=== PATIENT | male | born 1935 | race Caucasian/White ===

== ENCOUNTER 2017-01-30 19:52 | Inpatient (IN) | payer OTHER, BC ==
[~2017-01-30] VITALS: Ht 180.3 cm; Wt 71.4 kg
[~2017-01-30 19:52] MED LIST: AMLO-114 PO; ASPEC325 PO; CLOP1TAB15 PO; GLC/500 PO; GLYB3TAB3 PO; LISI-461 PO; LPT10 PO
[2017-01-30 21:02] LABS: BASO % 0.4 %; BASO ABS # 0.03 K/uL (0-0.2); COMPLETE YES; EOS % 8.8 %; IG% 0.1 %; LYMPH % 31.8 %; LYMPH ABS # 2.17 K/uL (1.2-3.4); MEAN CORPUSCULAR HEMOGLOBIN 31.9 pg (25-34); MEAN CORPUSCULAR HGB CONC 33.2 g/dl (32-36); MEAN PLATELET VOLUME 10.1 fL (7.4-10.4); MONO % 18.3 %; NEUT % 40.6 %; PLATELET COUNT 247 K/uL (130-400); RED BLOOD COUNT 3.23 M/uL (4.7-6.1); WHITE BLOOD COUNT 6.82 K/uL (4.8-10.8)
--- NOTE | 2017-01-30 21:08 | DIAGNOSTIC IMAGING REPORT ---
CT SCAN OF THE BRAIN WITHOUT IV CONTRAST CLINICAL HISTORY: Weakness. Change in mental status. COMPARISON STUDY: CT and MRI of the brain dated 12/17/2013. TECHNIQUE: Unenhanced axial CT scan of the brain is performed from the vertex to the skull base. CT DOSE: 614.27 mGy.cm FINDINGS: Brain parenchyma: There are age-related involutional changes noting advanced confluent subcortical and periventricular microangiopathic change. There is a septal malacia from a remote right parietal-occipital infarct. Small chronic lacunar infarcts are seen in the caudate heads, the left thalamus, and the left basal ganglia. There is no hemorrhage, mass effect, or evidence of acute territorial ischemia by CT criteria. Gibbons-white matter is preserved. No extra-axial fluid collection is seen. Ventricles, sulci, cisterns: Prominent secondary to involutional change. Intracranial vasculature: There is atherosclerotic calcification of the cavernous carotid and vertebral arteries. Calvarium: Unremarkable. Sinuses and mastoids: Trace mucosal thickening is seen in the left maxillary antrum and the ethmoid sinuses. The remaining visualized paranasal sinuses are clear. The mastoid air cells are well pneumatized. Orbits: The bony orbits are grossly intact. There is a left-sided ocular lens implant. IMPRESSION: Senescent changes and remote infarcts as above. There is no hemorrhage, mass effect, or evidence of acute territorial ischemia by CT criteria. Electronically signed by: Rommel Posada M.D. 01/30/2017 9:07 PM Dictated Date/Time: 01/30/2017 9:03 PM
--- NOTE | 2017-01-30 21:25 | DIAGNOSTIC IMAGING REPORT ---
SINGLE VIEW CHEST CLINICAL HISTORY: Change in mental status. Generalized weakness. FINDINGS: An AP, portable, upright chest radiograph is obtained. No prior studies are available for comparison at the time of dictation. The examination is degraded by portable technique and patient rotation. A right internal jugular central venous catheter is in place. The tip of the catheter projects over the SVC. The heart is enlarged and there is atherosclerotic calcification of the thoracic aorta. The pulmonary vasculature is noncongested. The lungs and pleural spaces are clear. No pneumothorax is seen. The skeletal structures are osteopenic. The bony thorax is grossly intact. IMPRESSION: Cardiomegaly with no acute cardiopulmonary abnormality. Electronically signed by: Rommel Posada M.D. 01/30/2017 9:23 PM Dictated Date/Time: 01/30/2017 9:22 PM
[2017-01-30] MEDS ORDERED: SITA25TA PO (21:38)
[2017-01-30] MEDS ORDERED: CARV6.252 PO (21:39)
[2017-01-30] MEDS ORDERED: ATOR10TA88 PO (21:41)
[2017-01-30] MEDS ORDERED: B-COTAB97 PO (21:43)
[2017-01-30] MEDS ORDERED: ASPI325T39 PO (21:44)
[2017-01-30 21:48] LABS: PARTIAL THROMBOPLASTIN RATIO 0.9
[2017-01-30 21:50] LABS: ALT/SGPT 17 U/L (12-78); BLOOD UREA NITROGEN 15 mg/dl (7-18); BUN/CREATININE RATIO 5.2 (10-20); CALCIUM 8.8 mg/dl (8.5-10.1); CARBON DIOXIDE 31 mmol/L (21-32); CHLORIDE 99 mmol/L (98-107); GLUCOSE 164 mg/dl (70-99); MAGNESIUM 2.2 mg/dl (1.8-2.4); POTASSIUM 4.1 mmol/L (3.5-5.1); SODIUM 138 mmol/L (136-145)
[2017-01-30 21:58] LABS: ALKALINE PHOSPHATASE 65 U/L (45-117); AST/SGOT 13 U/L (15-37); CKMB/CK RATIO 2.3 (0-3.0)
--- NOTE | 2017-01-30 22:28 | EMERGENCY ROOM VISIT NOTE ---
History Report prepared by Mayte: Maldonado Rivera Under the Supervision of: Dr. Jai Valdes D.O. First contact with patient: 20:08 Chief Complaint: ALTERED MENTAL STATUS Stated Complaint: AMS History of Present Illness The patient is a 81 year old male who presents to the Emergency Room by EMS with complaints of an episode of altered mental status beginning this evening. Per the patient and his family, he had dialysis today, and came home and sat down afterwards. He has been on dialysis for 2 months. Later, he was complaining of being tired, and had difficulty answering questions. The family notes these symptoms lasted about 30 minutes. The patient notes he currently feels fine. The patient had a stroke about 3.5 years ago, and has had problems with his right arm and the right side of his face since. He has not had recently cold symptoms, and he did received a flu shot this year. EMS reported that his blood pressure was 60/30, and his family notes his blood pressured dropped after his last dialysis. Source of History: patient, family Onset: this evening Position: head Symptom Intensity: episode lasting 30 minutes Quality: other (altered mental status) Timing: other (episode) Associated Symptoms: + fatigue Note: The patient has not had cold symptoms Review of Systems See HPI for pertinent positives & negatives. A total of 10 systems reviewed and were otherwise negative. Past Medical & Surgical Medical Problems: (1) CVA (cerebral vascular accident) (2) Diabetes mellitus (3) HTN (hypertension) Family History Diabetes mellitus Hypertension Social History Smoking Status: Unknown if Ever Smoked Alcohol Use: none Marital Status: Housing Status: lives with significant other Occupation Status: retired Current/Historical Medications Scheduled Amlodipine (Norvasc), 10 MG PO DAILY Aspirin (Aspirin Ec), 325 MG PO DAILY Atorvastatin (Lipitor), 10 MG PO DAILY B-Complex W/ C & Folic Acid (Marilee-Vince), 1 TAB PO DAILY Carvedilol (Coreg), 6.25 MG PO BID Clopidogrel (Plavix), 75 MG PO DAILY Sitagliptin (Januvia), 25 MG PO DAILY Allergies Coded Allergies: Penicillins (Verified Allergy, Unknown, rash, 01/30/17) Physical Exam Vital Signs Date Time Temp Pulse Resp B/P Pulse Ox O2 Delivery O2 Flow Rate FiO2 01/30/17 21:49 75 18 145/67 100 Room Air 80 129/72 82 127/64 01/30/17 21:21 72 18 138/74 97 Room Air 01/30/17 20:40 72 01/30/17 20:07 36.8 80 18 152/79 100 Room Air Physical Exam CONSTITUTIONAL/VITAL SIGNS: Reviewed / noted above. GENERAL: Non-toxic in appearance. INTEGUMENTARY: Warm, dry, and [place]. HEAD: Normocephalic. EYES: without scleral icterus or trauma. ENT/OROPHARYNX: clear and moist. LYMPHADENOPATHY/NECK: Is supple without lymphadenopathy or meningismus. RESPIRATORY: Lungs clear and equal. CARDIOVASCULAR: Regular rate and rhythm. GI/ABDOMEN: Soft and nontender. No organomegaly or pulsatile mass. No rebound or guarding. Normal bowel sounds. EXTREMITIES: Warm and well perfused. BACK: No CVA tenderness. NEUROLOGICAL: Chronic right-sided paresis and mild slurring of speech from prior stroke. PSYCHIATRIC: normal affect. MUSCULOSKELETAL: Normally developed with good muscle tone. Medical Decision & Procedures ER Provider Diagnostic Interpretation: Radiology results as stated below per my review and radiologist interpretation: CT SCAN OF THE BRAIN WITHOUT IV CONTRAST FINDINGS: Brain parenchyma: There are age-related involutional changes noting advanced confluent subcortical and periventricular microangiopathic change. There is a septal malacia from a remote right parietal-occipital infarct. Small chronic lacunar infarcts are seen in the caudate heads, the left thalamus, and the left basal ganglia. There is no hemorrhage, mass effect, or evidence of acute territorial ischemia by CT criteria. Gibbons-white matter is preserved. No extra-axial fluid collection is seen. Ventricles, sulci, cisterns: Prominent secondary to involutional change. Intracranial vasculature: There is atherosclerotic calcification of the cavernous carotid and vertebral arteries. Calvarium: Unremarkable. Sinuses and mastoids: Trace mucosal thickening is seen in the left maxillary antrum and the ethmoid sinuses. The remaining visualized paranasal sinuses are clear. The mastoid air cells are well pneumatized. Orbits: The bony orbits are grossly intact. There is a left-sided ocular lens implant. IMPRESSION: Senescent changes and remote infarcts as above. There is no hemorrhage, mass effect, or evidence of acute territorial ischemia by CT criteria. Electronically signed by: Rommel Posada M.D. 01/30/2017 9:07 PM Dictated Date/Time: 01/30/2017 9:03 PM SINGLE VIEW CHEST FINDINGS: An AP, portable, upright chest radiograph is obtained. No prior studies are available for comparison at the time of dictation. The examination is degraded by portable technique and patient rotation. A right internal jugular central venous catheter is in place. The tip of the catheter projects over the SVC. The heart is enlarged and there is atherosclerotic calcification of the thoracic aorta. The pulmonary vasculature is noncongested. The lungs and pleural spaces are clear. No pneumothorax is seen. The skeletal structures are osteopenic. The bony thorax is grossly intact. IMPRESSION: Cardiomegaly with no acute cardiopulmonary abnormality. Electronically signed by: Rommel Posada M.D. 01/30/2017 9:23 PM Dictated Date/Time: 01/30/2017 9:22 PM Laboratory Results 01/30/17 20:08 Red Blood Count 3.23, Mean Corpuscular Volume 96.0, Mean Corpuscular Hemoglobin 31.9, Mean Corpuscular Hemoglobin Concent 33.2, Mean Platelet Volume 10.1, Neutrophils (%) (Auto) 40.6, Lymphocytes (%) (Auto) 31.8, Monocytes (%) (Auto) 18.3, Eosinophils (%) (Auto) 8.8, Basophils (%) (Auto) 0.4, Neutrophils # (Auto ) 2.76, Lymphocytes # (Auto) 2.17, Monocytes # (Auto) 1.25, Eosinophils # (Auto ) 0.60, Basophils # (Auto) 0.03 01/30/17 21:22 Test 01/30/17 20:08 01/30/17 21:22 White Blood Count 6.82 K/uL (4.8-10.8) Red Blood Count 3.23 M/uL (4.7-6.1) Hemoglobin 10.3 g/dL (14.0-18.0) Hematocrit 31.0 % (42-52) Mean Corpuscular Volume 96.0 fL (80-100) Mean Corpuscular Hemoglobin 31.9 pg (25-34) Mean Corpuscular Hemoglobin Concent 33.2 g/dl (32-36) Platelet Count 247 K/uL (130-400) Mean Platelet Volume 10.1 fL (7.4-10.4) Neutrophils (%) (Auto) 40.6 % Lymphocytes (%) (Auto) 31.8 % Monocytes (%) (Auto) 18.3 % Eosinophils (%) (Auto) 8.8 % Basophils (%) (Auto) 0.4 % Neutrophils # (Auto) 2.76 K/uL (1.4-6.5) Lymphocytes # (Auto) 2.17 K/uL (1.2-3.4) Monocytes # (Auto) 1.25 K/uL (0.11-0.59) Eosinophils # (Auto) 0.60 K/uL (0-0.5) Basophils # (Auto) 0.03 K/uL (0-0.2) RDW Standard Deviation 45.4 fL (36.4-46.3) RDW Coefficient of Variation 13.3 % (11.5-14.5) Immature Granulocyte % (Auto) 0.1 % Immature Granulocyte # (Auto) 0.01 K/uL (0.00-0.02) Prothrombin Time 11.0 SECONDS (9.0-12.0) Prothromb Time International Ratio 1.0 (0.9-1.1) Activated Partial Thromboplast Time 24.2 SECONDS (21.0-31.0) Partial Thromboplastin Ratio 0.9 Anion Gap 8.0 mmol/L (3-11) Est Creatinine Clear Calc Drug Dose 20.5 ml/min Estimated GFR () 22.3 Estimated GFR (Non- 19.3 BUN/Creatinine Ratio 5.2 (10-20) Calcium Level 8.8 mg/dl (8.5-10.1) Magnesium Level 2.2 mg/dl (1.8-2.4) Total Bilirubin 0.6 mg/dl (0.2-1) Direct Bilirubin 0.1 mg/dl (0-0.2) Aspartate Amino Transf (AST/SGOT) 13 U/L (15-37) Alanine Aminotransferase (ALT/SGPT) 17 U/L (12-78) Alkaline Phosphatase 65 U/L (45-117) Total Creatine Kinase 86 U/L (39-308) Creatine Kinase MB 2.0 ng/ml (0.5-3.6) Creatine Kinase MB Ratio 2.3 (0-3.0) Troponin I < 0.015 ng/ml (0-0.045) Total Protein 6.8 gm/dl (6.4-8.2) Albumin 3.6 gm/dl (3.4-5.0) Lipase 101 U/L (73-393) Thyroid Stimulating Hormone (TSH) 2.600 uIu/ml (0.300-4.500) Laboratory results as stated above per my review. ECG Indication: altered mental status Rate (beats per minute): 69 Rhythm: normal sinus Findings: RBBB, T-wave inversion (Lateral), other (baseline artifact) Comparison ECG Date: December 17, 2013 Change: T wave inversions appear new. ED Course 2009: Previous medical records were reviewed. The patient was evaluated in room B11B. A complete history and physical examination was performed. 2220: Discussed the patient's case with Dr. Henry. The patient will be evaluated for further treatment and disposition. Medical Decision Differential includes acute cardiac dysrhythmia, microinfarction, CVA, TIA, dehydration, anemia, electrolyte disturbance, seizure, trauma, intracranial bleeding, acute vascular catastrophe, thoracic aortic dissection, PE, abdominal aortic aneurysm rupture. This is a 81-year-old male who presents to the ED with a chief complaint of a syncopal episode at home. The patient has been getting dialysis for about 2 months. Today he had dialysis in the morning. He ate lunch. He was doing fine all day. Around 6:30 PM the patient did not have an appetite to eat. He was feeling tired. He then became unresponsive and was found to be pale and diaphoretic by EMS. He had a blood pressure 60/40. He was unresponsive for about 30 minutes according to the family. The patient had a prehospital blood sugar of 275. He was transported here for evaluation. Upon my evaluation, the patient is awake, alert and oriented. He was given 50 mL of IV fluids by EMS. His history of a CVA 3-1/2 years ago and has some chronic right-sided weakness as well as a slight speech slurred. His baseline neurological exam is completely baseline for him. The family confirms this. His exam was otherwise unremarkable and the patient denies any complaints at this time. He denies any headaches or weakness. There was no trauma involved. A CT scan of the brain did not show acute disease. There was evidence of CVAs. Nothing acute. Chest x-ray did not show acute disease. CBC was normal. EKG shows a normal sinus rhythm at a rate of 69. There is T wave inversions laterally that are new from 2016. Creatinine is 2.9. The patient is dependent on dialysis. Glucose is slightly elevated. TSH and troponin are normal. The patient was told the results. I spoke with the hospitalist, who will see the patient for further inpatient care and evaluation. Consults Time Called: 2214 Consulting Physician: Dr. Henry, [facility] [place] Returned Call: [id number] Discussed the patient's case with Dr. Henry. The patient will be evaluated for further treatment and disposition. Impression Primary Impression: Syncope Additional Impressions: EKG abnormalities Hypotensive episode Scribe Attestation The scribe's documentation has been prepared under my direction and personally reviewed by me in its entirety. I confirm that the note above accurately reflects all work, treatment, procedures, and medical decision making performed by me. Departure Information Dispostion Being Evaluated By Hospitalist Referrals Lance Flood D.O. (PCP) Patient Instructions My [facility] Problem Qualifiers
[2017-01-31] VITALS (11 sets, daily range): BP systolic 113–163; BP diastolic 55–83; PULSE 68–81; TEMP 36.5–37.1; O2SAT 97–99; Ht 180.3 cm; Wt 71.4 kg
--- NOTE | 2017-01-31 00:39 | History and Physical ---
History & Physical Date & Time of Service: Jan 31, 2017 at 00:28 PATIENT SEEN AND EVALUATED ON January Chief Complaint: AMS Primary Care Physician: No Doctor, Assigned History of Present Illness Source: patient Mr Montesinos is an 81-year-old male with history of multiple strokes and CKD stage V, dialysis dependent, who presents after a syncopal event. He apparently went to dialysis today, returned home was feeling tired, but went to sit outside on his porch around 6:30 PM. His called him to come back inside and he sat down on the chair and was apparently unresponsive he does not remember details after that, but EMS reports that he was unresponsive for about 30 minutes. EMS reported he had a blood pressure of 60/40 and that they gave him 50 mL of IV fluids. He vomited one time and his blood sugar is 275. Currently he is awake and alert, and understands where he is. At baseline he does have right-sided weakness and slurred speech. He denies any chest pain or shortness of breath at the moment. Past Medical/Surgical History Medical Problems: (1) CVA (cerebral vascular accident) Status: Chronic (2) Diabetes mellitus Status: Chronic (3) HTN (hypertension) Status: Chronic Family History Diabetes mellitus Hypertension Social History Smoking Status: Unknown if Ever Smoked Marital Status: Occupational Status: retired Immunizations History of Influenza Vaccine: Yes Influenza Vaccine Date: Aug 16, 2013 History of Tetanus Vaccine?: Unknown History of Pneumococcal: Yes History of Hepatitis B Vaccine: Unknown Allergies Coded Allergies: Penicillins (Verified Allergy, Unknown, rash, 01/30/17) Home Medications Scheduled Amlodipine (Norvasc), 10 MG PO DAILY Aspirin (Aspirin Ec), 325 MG PO DAILY Atorvastatin (Lipitor), 10 MG PO DAILY B-Complex W/ C & Folic Acid (Marilee-Vince), 1 TAB PO DAILY Carvedilol (Coreg), 6.25 MG PO BID Clopidogrel (Plavix), 75 MG PO DAILY Sitagliptin (Januvia), 25 MG PO DAILY Review of Systems See HPI for pertinent positives & negatives. A total of 10 systems reviewed and were otherwise negative. Physical Exam Vital Signs Date Time Temp Pulse Resp B/P Pulse Ox O2 Delivery O2 Flow Rate FiO2 01/30/17 23:45 85 18 134/66 98 01/30/17 22:56 78 18 142/72 99 Room Air 01/30/17 21:49 75 18 145/67 100 Room Air 80 129/72 82 127/64 01/30/17 21:21 72 18 138/74 97 Room Air 01/30/17 20:40 72 01/30/17 20:07 36.8 80 18 152/79 100 Room Air GENERAL: Awake, alert, well appearing, no distress HENT: Normocephalic, atraumatic. TM's normal. Oropharynx unremarkable. EYES: PERRL. Normal conjunctiva. Sclera non-icteric. Fundi normal. EOMI NECK: Supple. No nuchal rigidity. FROM. RESPIRATORY: CTA CARDIAC: RRR. Extremities warm and well perfused. ABDOMEN: Soft, non distended. No tenderness to palpation. No rebound or guarding. No masses. MUSCULOSKELETAL: Unremarkable. EXTREMITIES: No edema. No discoloration. NEURO: Normal sensorium. No sensory or motor deficits noted. Right sided facial droop, with mild slurring of speech. SKIN: No rash or jaundice noted. LYMPH: No adenopathy. Diagnostics Laboratory Results Results Past 24 Hours Test 01/30/17 20:08 01/30/17 21:22 Range/Units White Blood Count 6.82 4.8-10.8 K/uL Red Blood Count 3.23 4.7-6.1 M/uL Hemoglobin 10.3 14.0-18.0 g/dL Hematocrit 31.0 42-52 % Mean Corpuscular Volume 96.0 80-100 fL Mean Corpuscular Hemoglobin 31.9 25-34 pg Mean Corpuscular Hemoglobin Concent 33.2 32-36 g/dl Platelet Count 247 130-400 K/uL Mean Platelet Volume 10.1 7.4-10.4 fL Neutrophils (%) (Auto) 40.6 % Lymphocytes (%) (Auto) 31.8 % Monocytes (%) (Auto) 18.3 % Eosinophils (%) (Auto) 8.8 % Basophils (%) (Auto) 0.4 % Neutrophils # (Auto) 2.76 1.4-6.5 K/uL Lymphocytes # (Auto) 2.17 1.2-3.4 K/uL Monocytes # (Auto) 1.25 0.11-0.59 K/uL Eosinophils # (Auto) 0.60 0-0.5 K/uL Basophils # (Auto) 0.03 0-0.2 K/uL RDW Standard Deviation 45.4 36.4-46.3 fL RDW Coefficient of Variation 13.3 11.5-14.5 % Immature Granulocyte % (Auto) 0.1 % Immature Granulocyte # (Auto) 0.01 0.00-0.02 K/uL Prothrombin Time 11.0 9.0-12.0 SECONDS Prothromb Time International Ratio 1.0 0.9-1.1 Activated Partial Thromboplast Time 24.2 21.0-31.0 SECONDS Partial Thromboplastin Ratio 0.9 Sodium Level 138 136-145 mmol/L Potassium Level 4.1 3.5-5.1 mmol/L Chloride Level 99 98-107 mmol/L Carbon Dioxide Level 31 21-32 mmol/L Anion Gap 8.0 3-11 mmol/L Blood Urea Nitrogen 15 7-18 mg/dl Creatinine 2.90 0.60-1.40 mg/dl Est Creatinine Clear Calc Drug Dose 20.5 ml/min Estimated GFR () 22.3 Estimated GFR (Non- 19.3 BUN/Creatinine Ratio 5.2 10-20 Random Glucose 164 70-99 mg/dl Calcium Level 8.8 8.5-10.1 mg/dl Magnesium Level 2.2 1.8-2.4 mg/dl Total Bilirubin 0.6 0.2-1 mg/dl Direct Bilirubin 0.1 0-0.2 mg/dl Aspartate Amino Transf (AST/SGOT) 13 15-37 U/L Alanine Aminotransferase (ALT/SGPT) 17 12-78 U/L Alkaline Phosphatase 65 45-117 U/L Total Creatine Kinase 86 39-308 U/L Creatine Kinase MB 2.0 0.5-3.6 ng/ml Creatine Kinase MB Ratio 2.3 0-3.0 Troponin I < 0.015 0-0.045 ng/ml Total Protein 6.8 6.4-8.2 gm/dl Albumin 3.6 3.4-5.0 gm/dl Lipase 101 73-393 U/L Thyroid Stimulating Hormone (TSH) 2.600 0.300-4.500 uIu/ml Diagnostic Radiology CT HEAD: IMPRESSION: Senescent changes and remote infarcts as above. There is no hemorrhage, mass effect, or evidence of acute territorial ischemia by CT criteria. other (New TWave Inversion when compared to EKG in 2015) Impression Assessment and Plan 81-year-old male with diabetes, CKD stage V on dialysis, and previous strokes who presents with syncopal episode - differential is broad, but includes hypotension from volume loss from dialysis, vasovagal syncope, CVA, SD, seizure , hypo-or hyperglycemia, or other infection. Plan: Syncopal event: Obtain MRI. This will have to be without contrast due to his low EGFR Telemetry monitoring Trend cardiac enzymes Orthostatic blood pressures CKD stage V Nephrology consult, in case of need for further dialysis/ adjustment of medications Type 2 diabetes Continue home regimen of anti-glycemic agents BSG AC and HS Level of Care Telemetry Resuscitation Status FULL RESUSCITATION VTE Prophylaxis VTE Risk Assessment Done? Y/N: Yes Risk Level: Moderate Given or contraindicated: SCD's Resident Tracking Resident Involvement: Resident Care Provided Care Provided: [facility] Assessment and Plan Attending Addendum: I have physically seen and examined this patient, have directed their medical care, have supervised the medical residents activities, and agree with the H&P as noted above, with the following changes: The patient is awake, well-developed and adequately nourished, alert and oriented 3, right facial droop lying in bed and in no acute distress. HEENT--PERRL, EOMI, mucous membranes and oropharynx dry. Neck--supple, no JVD or bruits, thyroid normal, trachea midline, no adenopathy. Heart--normal S1 and S2, no extra beats, no murmurs, rubs or gallops. Lungs--clear bilaterally with good air movement, no respiratory distress, no accessory muscle use. Abdomen--normal bowel sounds and soft, nontender and nondistended, no hernias or masses, no organomegaly. Extremities--no cyanosis, clubbing or edema. There are good distal pulses b/l. Dermatologic--normal skin turgor, normal color, warm and dry, no abnormal lymph nodes, no rash. Neurologic--cranial nerves II through XII grossly intact, right upper extremity weakness Rheumatologic--normal range of motion, nontender, muscles and joints. Psychiatric--normal affect. Assessment and Plan: X Syncope/cerebrovascular disease history--CT of the head shows several old strokes, and it is possible that his low blood pressure postdialysis may have precipitated a new stroke. We'll therefore order an MRI of the brain for further assessment. He'll be admitted to telemetry for cardiac rhythm monitoring, serial cardiac enzymes, and a 2-D echocardiogram with Dopplers. We' ll continue enteric-coated aspirin 325 mg by mouth daily and clopidogrel 75 mg by mouth daily. End-stage renal disease on hemodialysis/hypertension--just completed dialysis earlier in the day. Due to his recent hypotension, will hold carvedilol 25 mg by mouth twice a day and Norvasc 10 mg by mouth daily. Diabetes mellitus--hold Januvia 25 mg by mouth daily[address] on Accu-Cheks before meals and at bedtime with NovoLog coverage. Hypercholesterolemia--continue atorvastatin 10 mg by mouth daily.
[2017-01-31] MEDS ORDERED: NURSING VERBAL MED ORDER ONE (01:45)
[2017-01-31 05:09] LABS: BASO % 0.3 %; BASO ABS # 0.02 K/uL (0-0.2); COMPLETE YES; EOS % 5.6 %; HEMATOCRIT 28.1 % (42-52); IG% 0.5 %; LYMPH % 28.3 %; LYMPH ABS # 2.19 K/uL (1.2-3.4); MEAN CELL VOLUME 92.7 fL (80-100); MEAN CORPUSCULAR HGB CONC 33.5 g/dl (32-36); MEAN PLATELET VOLUME 9.5 fL (7.4-10.4); MONO % 16.7 %; NEUT % 48.6 %; PLATELET COUNT 213 K/uL (130-400); RED BLOOD COUNT 3.03 M/uL (4.7-6.1); WHITE BLOOD COUNT 7.74 K/uL (4.8-10.8)
[2017-01-31 05:33] LABS: BUN/CREATININE RATIO 5.2 (10-20); CALCIUM 8.7 mg/dl (8.5-10.1); CREATININE 3.3 mg/dl (0.60-1.40); POTASSIUM 3.9 mmol/L (3.5-5.1)
[2017-01-31 05:38] LABS: CKMB/CK RATIO 1.4 (0-3.0)
--- NOTE | 2017-01-31 06:44 | DIAGNOSTIC IMAGING REPORT ---
MRI OF THE BRAIN WITHOUT CONTRAST CLINICAL HISTORY: Change of mental status. Generalized weakness. Suspected stroke. COMPARISON STUDY: MRI the brain dated to , noncontrast head CT dated 01/30/2017 FINDINGS: Sagittal T1, axial diffusion, proton density and T2 weighted axial, coronal FLAIR, and axial T1-weighted images were acquired. No intra or extra-axial mass lesions are visualized Axial diffusion-weighted images reveal no evidence of acute or subacute infarction. There is mild ventricular dilatation, likely secondary to volume loss. Proton density T2-weighted and FLAIR images reveal extensive foci of increased T2 signal within the white matter, likely on a small vessel basis. There is an old right occipital lobe infarct. There is an old lacunar infarct in the left caudate. There is an old deep white matter infarct within the left periventricular white matter. There are no abnormal flow voids. There are few scattered tiny foci of susceptibility artifact, most prominent within the sacha were 3 lesions are visualized. These likely represent old microhemorrhages. IMPRESSION: 1. No evidence of acute or subacute infarction 2. Old right occipital lobe infarct and lacunar infarcts 3. Scattered tiny microhemorrhages, likely old 4. No evidence of intracranial mass Electronically signed by: Napoleon Wesley M.D. 01/31/2017 6:43 AM Dictated Date/Time: 01/31/2017 6:39 AM
[2017-01-31] MEDS: VITAMIN B COMPLEX TAB PO SCH (07:44)
[2017-01-31] MEDS: SITAGLIPTIN 25 MG TAB PO SCH (07:44)
[2017-01-31] MEDS: ATORVASTATIN 10 MG TAB PO SCH (07:44)
[2017-01-31] MEDS: CARVEDILOL 6.25 MG TAB PO SCH ×2 (07:45→22:06)
[2017-01-31] MEDS: AMLODIPINE BESYLATE 5 MG TAB PO SCH (07:45)
--- NOTE | 2017-01-31 08:10 | Hospitalist Progress Note ---
Hospitalist Progress Note Date of Service Jan 31, 2017. (Claudia Solano ., HANYC) Subjective Pt evaluation today including: conversation w/ patient, physical exam, chart review, lab review, review of studies, review of inpatient medication list Voiding: no voiding problems, no incontinence Patient states he is feeling well. Yesterday after dialysis, he was sitting in his sun room w/ 80+ degree temp. He then went to the kitchen for dinner. The next thing he remembers is waking up on his way here. He admits to diaphoresis prior to syncopal event. He is eating and drinking OK. Patient denies any fever , chills, sweats, lightheadedness, dizziness, vision changes, CP, palpitations, edema, SOB, wheezing, cough, abdominal pain, nausea, vomiting, diarrhea, urinary symptoms, melena, numbness/tingling, weakness, muscle/joint pain, anxiety/depression, active bleeding, or new skin discoloration/changes. (Claudia Solano ., HANYC) Medications Current Inpatient Medications Medications (Trade) Dose Ordered Sig/Don Route Start Time Stop Time Status Last Admin Dose Admin Amlodipine Besylate (Norvasc Tab) 10 mg DAILY PO 01/31/17 09:00 03/02/17 08:59 01/31/17 07:45 10 MG Atorvastatin Calcium (Lipitor Tab) 10 mg DAILY PO 01/31/17 09:00 03/02/17 08:59 01/31/17 07:44 10 MG Carvedilol (Coreg Tab) 6.25 mg BID PO 01/31/17 09:00 03/02/17 08:59 01/31/17 07:45 6.25 MG Sitagliptin Phosphate (Januvia Tab) 25 mg DAILY PO 01/31/17 09:00 03/02/17 08:59 01/31/17 07:44 25 MG Vitamin B Complex (Vitamin B Complex) 1 tab DAILY PO 01/31/17 09:00 03/02/17 08:59 01/31/17 07:44 1 TAB (Claudia Solano ., DONG-C) Objective Vital Signs Date Time Temp Pulse Resp B/P Pulse Ox O2 Delivery O2 Flow Rate FiO2 01/31/17 07:33 36.9 71 20 121/63 97 Room Air 01/31/17 04:06 36.9 72 20 142/71 99 Room Air 01/31/17 04:00 99 Room Air 01/31/17 01:27 36.5 81 20 163/83 99 Room Air 01/30/17 23:45 85 18 134/66 98 01/30/17 22:56 78 18 142/72 99 Room Air 01/30/17 21:49 75 18 145/67 100 Room Air 80 129/72 82 127/64 01/30/17 21:21 72 18 138/74 97 Room Air 01/30/17 20:40 72 01/30/17 20:07 36.8 80 18 152/79 100 Room Air (Claudia Solano, PA-C) Physical Exam General Appearance: no apparent distress Eyes: normal inspection, PERRL ENT: hearing grossly normal Neck: supple Respiratory/Chest: lungs clear, no respiratory distress, no accessory muscle use Cardiovascular: regular rate, rhythm Abdomen: normal bowel sounds, non tender, soft Extremities: no pedal edema, no calf tenderness Neurologic/Psychiatric: alert, normal mood/affect, oriented x 3 Skin: normal color, warm/dry, no rash (Claudia Solano ., PA-C) Laboratory Results Last 24 Hours Test 01/30/17 20:08 01/30/17 21:22 01/31/17 04:49 01/31/17 06:43 White Blood Count 6.82 K/uL 7.74 K/uL Red Blood Count 3.23 M/uL 3.03 M/uL Hemoglobin 10.3 g/dL 9.4 g/dL Hematocrit 31.0 % 28.1 % Mean Corpuscular Volume 96.0 fL 92.7 fL Mean Corpuscular Hemoglobin 31.9 pg 31.0 pg Mean Corpuscular Hemoglobin Concent 33.2 g/dl 33.5 g/dl Platelet Count 247 K/uL 213 K/uL Mean Platelet Volume 10.1 fL 9.5 fL Neutrophils (%) (Auto) 40.6 % 48.6 % Lymphocytes (%) (Auto) 31.8 % 28.3 % Monocytes (%) (Auto) 18.3 % 16.7 % Eosinophils (%) (Auto) 8.8 % 5.6 % Basophils (%) (Auto) 0.4 % 0.3 % Neutrophils # (Auto) 2.76 K/uL 3.77 K/uL Lymphocytes # (Auto) 2.17 K/uL 2.19 K/uL Monocytes # (Auto) 1.25 K/uL 1.29 K/uL Eosinophils # (Auto) 0.60 K/uL 0.43 K/uL Basophils # (Auto) 0.03 K/uL 0.02 K/uL RDW Standard Deviation 45.4 fL 43.9 fL RDW Coefficient of Variation 13.3 % 13.2 % Immature Granulocyte % (Auto) 0.1 % 0.5 % Immature Granulocyte # (Auto) 0.01 K/uL 0.04 K/uL Prothrombin Time 11.0 SECONDS Prothromb Time International Ratio 1.0 Activated Partial Thromboplast Time 24.2 SECONDS Partial Thromboplastin Ratio 0.9 Sodium Level 138 mmol/L 140 mmol/L Potassium Level 4.1 mmol/L 3.9 mmol/L Chloride Level 99 mmol/L 101 mmol/L Carbon Dioxide Level 31 mmol/L 33 mmol/L Anion Gap 8.0 mmol/L 6.0 mmol/L Blood Urea Nitrogen 15 mg/dl 17 mg/dl Creatinine 2.90 mg/dl 3.30 mg/dl Est Creatinine Clear Calc Drug Dose 20.5 ml/min 17.8 ml/min Estimated GFR () 22.3 19.1 Estimated GFR (Non- 19.3 16.5 BUN/Creatinine Ratio 5.2 5.2 Random Glucose 164 mg/dl 142 mg/dl Calcium Level 8.8 mg/dl 8.7 mg/dl Magnesium Level 2.2 mg/dl Total Bilirubin 0.6 mg/dl Direct Bilirubin 0.1 mg/dl Aspartate Amino Transf (AST/SGOT) 13 U/L Alanine Aminotransferase (ALT/SGPT) 17 U/L Alkaline Phosphatase 65 U/L Total Creatine Kinase 86 U/L 145 U/L Creatine Kinase MB 2.0 ng/ml 2.1 ng/ml Creatine Kinase MB Ratio 2.3 1.4 Troponin I < 0.015 ng/ml 0.015 ng/ml Total Protein 6.8 gm/dl Albumin 3.6 gm/dl Lipase 101 U/L Thyroid Stimulating Hormone (TSH) 2.600 uIu/ml Bedside Glucose 128 mg/dl (Claudia Solano PA-C) Assessment and Plan 81-year-old male with diabetes, 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 Syncopal event, likely secondary to hypotension from volume loss due to dialysis : - Admit to tele for cardiac monitoring--> reviewed- no acute events - Trend cardiac enzymes- negative - Check orthostatic BPs - TSH checked - Imaging: -- CT of head- Senescent changes and remote infarcts as above. There is no hemorrhage, mass effect, or evidence of acute territorial ischemia by CT criteria -- Brain MRI- No evidence of acute or subacute infarction. Old right occipital lobe infarct and lacunar infarcts. Scattered tiny microhemorrhages, likely old. No evidence of intracranial mass -- CXR- Cardiomegaly with no acute cardiopulmonary abnormality -- ECHO pending CKD, stage V- dialysis dependent: - Dialysis in [place] w/ Dr. Lu on , , Fri - Consult Nephrology, appreciate recommendations - Follow PRP HTN: - Held Carvedilol 25 mg PO BID and Norvasc 10 mg PO daily T2DM: - Continue Januvia 25 mg PO daily - BSG AC and HS w/ sliding insulin scale HDL: Continue Lipitor 10 mg PO daily hx of CVA: Continue ASA 325 mg PO daily and Plavix 75 mg PO daily Code Status: LEVEL I, FULL Dispo: Discharge to home w/ health services once medically stable (Claudia Solano ., PA-C) Attending Attestation: Pt seen/examined, chart reviewed, care plan d/w DONG Solano. I agree w/ the fofana components of her documentation. Pt "feels great." /sister both at bedside. They report the syncopal event occurred about 5-6 hours AFTER he had had hemodialysis. Was sitting on a warm, enclosed porch; got up from there to go in the house; returned to the dinner table - proceeded to pass out. Was without consciousness for 20-30 minutes per his sister. He denies any prodromal sx's to me. First set of vitals after event - very low BP as documented. He was diaphoretic. VSS no fever gen - nad neck - no jvd chest - right permcath clean, no erythema heart - RRR, s1, s2 lungs - CTA b/l abd - soft ext - no edema neuro - strength 5/5 x 4 exts cardiac enzymes neg x 3 sets MRI brain - old stroke seen (right occipital lobe) but NO NEW STROKE old tiny microhemorrhages in the sacha tele overnight w/o arrhythmia A/P: prolonged syncopal event. by history and given common statistics most likely etiology was vasovagal spell however, the event was rather long for a simple vasovagal spell he is at risk of dysrhythmia, infection, etc infectious cause not found nor suspected, however check echo check carotid duplex observe 1 more night on telemetry HD in am due to ESRD - appreciate nephrology consultation updated Luis Denise MD if th (Luis Denise MD)
[2017-01-31] MEDS ORDERED: ASPIRIN 325 MG ECTAB PO SCH (09:00)
[2017-01-31] MEDS ORDERED: CLOPIDOGREL BISULFATE 75 MG TAB PO SCH (09:00)
--- NOTE | 2017-01-31 10:35 | Nephrology Consultation ---
Nephrology Consultation Date & Providers Date of Consultation: Jan 31, 2017. Primary Care Provider: No Doctor, Assigned Referring Provider: Reason for Consultation ESRD History of Present Illness Mr. Remington Montesinos is an 81-year-old male with ESRD who was admitted to [facility] yesterday following a syncopal episode. Medical history is notable for hypertension, diabetes mellitus and history of CVA. He was started on dialysis approximately 1 month ago. He has been maintained on hemodialysis TTS schedule at [facility] under the care of Dr. Lu. Mr. Montesinos had a complete hemodialysis treatment yesterday without complications. He left the dialysis unit feeling well. Unfortunately, later in the afternoon, he had a syncopal episode at home. He denies any complications with hemodialysis. He was scheduled to see Dr. Bellamy today as an outpatient for AVF evaluation. CXR without acute changes. EKG notable for T wave inversions in the lateral leads. Mr. Montesinos denies any current lightheadedness or dizziness. He denies chest pain or palpitations. Past Medical/Surgical History Medical: -- ESRD -- Hypertension -- Diabetes mellitus II -- History of CVA Surgical: HD permcath placement Allergies Coded Allergies: Penicillins (Verified Allergy, Unknown, rash, 01/30/17) Inpatient Medications Current Inpatient Medications Medications (Trade) Dose Ordered Sig/Don Route Start Time Stop Time Status Last Admin Dose Admin Amlodipine Besylate (Norvasc Tab) 10 mg DAILY PO 01/31/17 09:00 03/02/17 08:59 01/31/17 07:45 10 MG Atorvastatin Calcium (Lipitor Tab) 10 mg DAILY PO 01/31/17 09:00 03/02/17 08:59 01/31/17 07:44 10 MG Carvedilol (Coreg Tab) 6.25 mg BID PO 01/31/17 09:00 03/02/17 08:59 01/31/17 07:45 6.25 MG Sitagliptin Phosphate (Januvia Tab) 25 mg DAILY PO 01/31/17 09:00 03/02/17 08:59 01/31/17 07:44 25 MG Vitamin B Complex (Vitamin B Complex) 1 tab DAILY PO 01/31/17 09:00 03/02/17 08:59 01/31/17 07:44 1 TAB Family History Diabetes mellitus Hypertension Social History Smoking Status: Former Smoker Marital Status: Occupation: retired Review of Systems A complete review of systems was performed. Pertinent positives are noted above. All other systems are negative. Physical Exam Date Time Temp Pulse Resp B/P Pulse Ox O2 Delivery O2 Flow Rate FiO2 01/31/17 08:00 97 Room Air 01/31/17 07:33 36.9 71 20 121/63 97 Room Air 01/31/17 04:06 36.9 72 20 142/71 99 Room Air 01/31/17 04:00 99 Room Air 01/31/17 01:27 36.5 81 20 163/83 99 Room Air 01/30/17 23:45 85 18 134/66 98 01/30/17 22:56 78 18 142/72 99 Room Air 01/30/17 21:49 75 18 145/67 100 Room Air 80 129/72 82 127/64 01/30/17 21:21 72 18 138/74 97 Room Air 01/30/17 20:40 72 01/30/17 20:07 36.8 80 18 152/79 100 Room Air General Appearance: WD/WN, no apparent distress Head: normocephalic, atraumatic Eyes: normal inspection, sclerae normal ENT: normal ENT inspection, pharynx normal, + pertinent finding (R IJ TDC with clean exit site) Neck: supple, no JVD Respiratory/Chest: lungs clear, no respiratory distress, no accessory muscle use Cardiovascular: regular rate, rhythm, no gallop, no murmur Abdomen/GI: non tender, soft Extremities/Musculoskelatal: normal inspection, no pedal edema Neurologic/Psych: alert, oriented x 3 Skin: normal color Laboratory Results Last 24 Hours Test 01/30/17 20:08 01/30/17 21:22 01/31/17 04:49 01/31/17 06:43 White Blood Count 6.82 K/uL 7.74 K/uL Red Blood Count 3.23 M/uL 3.03 M/uL Hemoglobin 10.3 g/dL 9.4 g/dL Hematocrit 31.0 % 28.1 % Mean Corpuscular Volume 96.0 fL 92.7 fL Mean Corpuscular Hemoglobin 31.9 pg 31.0 pg Mean Corpuscular Hemoglobin Concent 33.2 g/dl 33.5 g/dl Platelet Count 247 K/uL 213 K/uL Mean Platelet Volume 10.1 fL 9.5 fL Neutrophils (%) (Auto) 40.6 % 48.6 % Lymphocytes (%) (Auto) 31.8 % 28.3 % Monocytes (%) (Auto) 18.3 % 16.7 % Eosinophils (%) (Auto) 8.8 % 5.6 % Basophils (%) (Auto) 0.4 % 0.3 % Neutrophils # (Auto) 2.76 K/uL 3.77 K/uL Lymphocytes # (Auto) 2.17 K/uL 2.19 K/uL Monocytes # (Auto) 1.25 K/uL 1.29 K/uL Eosinophils # (Auto) 0.60 K/uL 0.43 K/uL Basophils # (Auto) 0.03 K/uL 0.02 K/uL RDW Standard Deviation 45.4 fL 43.9 fL RDW Coefficient of Variation 13.3 % 13.2 % Immature Granulocyte % (Auto) 0.1 % 0.5 % Immature Granulocyte # (Auto) 0.01 K/uL 0.04 K/uL Prothrombin Time 11.0 SECONDS Prothromb Time International Ratio 1.0 Activated Partial Thromboplast Time 24.2 SECONDS Partial Thromboplastin Ratio 0.9 Sodium Level 138 mmol/L 140 mmol/L Potassium Level 4.1 mmol/L 3.9 mmol/L Chloride Level 99 mmol/L 101 mmol/L Carbon Dioxide Level 31 mmol/L 33 mmol/L Anion Gap 8.0 mmol/L 6.0 mmol/L Blood Urea Nitrogen 15 mg/dl 17 mg/dl Creatinine 2.90 mg/dl 3.30 mg/dl Est Creatinine Clear Calc Drug Dose 20.5 ml/min 17.8 ml/min Estimated GFR () 22.3 19.1 Estimated GFR (Non- 19.3 16.5 BUN/Creatinine Ratio 5.2 5.2 Random Glucose 164 mg/dl 142 mg/dl Calcium Level 8.8 mg/dl 8.7 mg/dl Magnesium Level 2.2 mg/dl Total Bilirubin 0.6 mg/dl Direct Bilirubin 0.1 mg/dl Aspartate Amino Transf (AST/SGOT) 13 U/L Alanine Aminotransferase (ALT/SGPT) 17 U/L Alkaline Phosphatase 65 U/L Total Creatine Kinase 86 U/L 145 U/L Creatine Kinase MB 2.0 ng/ml 2.1 ng/ml Creatine Kinase MB Ratio 2.3 1.4 Troponin I < 0.015 ng/ml 0.015 ng/ml Total Protein 6.8 gm/dl Albumin 3.6 gm/dl Lipase 101 U/L Thyroid Stimulating Hormone (TSH) 2.600 uIu/ml Bedside Glucose 128 mg/dl Impression (1) ESRD on hemodialysis (2) HTN (hypertension) (3) CVA (cerebral vascular accident) (4) Diabetes mellitus (5) Syncope Mr. Montesinos is an 81-year-old male with ESRD on hemodialysis who was admitted with a syncopal episode and possible new EKG changes. Overall, he feels well now. He is maintained on HD at [facility] under the care of Dr. Lu on a TTS schedule. Last dialysis treatment was yesterday. Blood pressure, volume status and electrolytes are appropriate. Recommendations ESRD: -- No urgent indication for [employer] -- Plan HD tomorrow per schedule -- Medications appropriate for renal function -- TDC care per protocol Anemia: -- CBC and iron profile in AM Hypertension: -- Blood pressure and volume status appropriate
[2017-01-31 11:09] LABS: CKMB/CK RATIO 1.4 (0-3.0)
--- NOTE | 2017-01-31 15:10 | Discharge Instructions ---
Discharge Instructions Date of Service Jan 31, 2017. Admission Reason for Admission: Syncope, T Wave Inversion In Ekg Discharge Discharge Diagnosis / Problem: Syncope Discharge Goals Goal(s): Decrease discomfort, Diagnostic testing, Therapeutic intervention, Prevent Disease Progression Activity Recommendations Activity Limitations: resume your previous activity . Instructions / Follow-Up Instructions / Follow-Up Resume all regular home medications as prescribed to you Continue with scheduled dialysis After dialysis treatments, make sure you maintain well hydrated, change positions slowly (ex. from sitting to standing), and take it easy for 24 hours post treatment to avoid any further syncopal event. If you continue to have lightheadedness/dizziness, sweating, clamminess, blurred vision, or nausea after dialysis treatment, you need to let your PCP and warehouse helper know YOAN so they can make medication adjustments as needed to prevent any future syncopal events. Please follow-up with your PCP within 5-7 days Please follow-up/keep all of your subspecialty appointments Current Hospital Diet Patient's current hospital diet: Renal Diet Discharge Diet Recommended Diet: Renal Diet Procedures Procedures Performed: 1. Head CT 2. Chest x-ray 3. Brain MRI 4. ECHO Pending Studies Studies pending at discharge: no Laboratory Results Last 24 Hours Test 01/30/17 20:08 01/30/17 21:22 01/31/17 04:49 01/31/17 06:43 White Blood Count 6.82 K/uL 7.74 K/uL Red Blood Count 3.23 M/uL 3.03 M/uL Hemoglobin 10.3 g/dL 9.4 g/dL Hematocrit 31.0 % 28.1 % Mean Corpuscular Volume 96.0 fL 92.7 fL Mean Corpuscular Hemoglobin 31.9 pg 31.0 pg Mean Corpuscular Hemoglobin Concent 33.2 g/dl 33.5 g/dl Platelet Count 247 K/uL 213 K/uL Mean Platelet Volume 10.1 fL 9.5 fL Neutrophils (%) (Auto) 40.6 % 48.6 % Lymphocytes (%) (Auto) 31.8 % 28.3 % Monocytes (%) (Auto) 18.3 % 16.7 % Eosinophils (%) (Auto) 8.8 % 5.6 % Basophils (%) (Auto) 0.4 % 0.3 % Neutrophils # (Auto) 2.76 K/uL 3.77 K/uL Lymphocytes # (Auto) 2.17 K/uL 2.19 K/uL Monocytes # (Auto) 1.25 K/uL 1.29 K/uL Eosinophils # (Auto) 0.60 K/uL 0.43 K/uL Basophils # (Auto) 0.03 K/uL 0.02 K/uL RDW Standard Deviation 45.4 fL 43.9 fL RDW Coefficient of Variation 13.3 % 13.2 % Immature Granulocyte % (Auto) 0.1 % 0.5 % Immature Granulocyte # (Auto) 0.01 K/uL 0.04 K/uL Prothrombin Time 11.0 SECONDS Prothromb Time International Ratio 1.0 Activated Partial Thromboplast Time 24.2 SECONDS Partial Thromboplastin Ratio 0.9 Sodium Level 138 mmol/L 140 mmol/L Potassium Level 4.1 mmol/L 3.9 mmol/L Chloride Level 99 mmol/L 101 mmol/L Carbon Dioxide Level 31 mmol/L 33 mmol/L Anion Gap 8.0 mmol/L 6.0 mmol/L Blood Urea Nitrogen 15 mg/dl 17 mg/dl Creatinine 2.90 mg/dl 3.30 mg/dl Est Creatinine Clear Calc Drug Dose 20.5 ml/min 17.8 ml/min Estimated GFR () 22.3 19.1 Estimated GFR (Non- 19.3 16.5 BUN/Creatinine Ratio 5.2 5.2 Random Glucose 164 mg/dl 142 mg/dl Calcium Level 8.8 mg/dl 8.7 mg/dl Magnesium Level 2.2 mg/dl Total Bilirubin 0.6 mg/dl Direct Bilirubin 0.1 mg/dl Aspartate Amino Transf (AST/SGOT) 13 U/L Alanine Aminotransferase (ALT/SGPT) 17 U/L Alkaline Phosphatase 65 U/L Total Creatine Kinase 86 U/L 145 U/L Creatine Kinase MB 2.0 ng/ml 2.1 ng/ml Creatine Kinase MB Ratio 2.3 1.4 Troponin I < 0.015 ng/ml 0.015 ng/ml Total Protein 6.8 gm/dl Albumin 3.6 gm/dl Lipase 101 U/L Thyroid Stimulating Hormone (TSH) 2.600 uIu/ml Bedside Glucose 128 mg/dl Test 01/31/17 10:37 01/31/17 10:44 Total Creatine Kinase 137 U/L Creatine Kinase MB 1.9 ng/ml Creatine Kinase MB Ratio 1.4 Troponin I < 0.015 ng/ml Bedside Glucose 153 mg/dl Medical Emergencies . Who to Call and When: Medical Emergencies: If at any time you feel your situation is an emergency, please call 911 immediately. . Non-Emergent Contact Non-Emergency issues call your: Primary Care Provider . . "Provider Documentation" section prepared by Claudia Solano. VTE Core Measure Inpt VTE Proph given/why not?: SCD's
--- NOTE | 2017-01-31 15:17 | Discharge Summary ---
Discharge Summary Date of Service Jan 31, 2017. (Claudia Solano, LAUREN) Discharge Summary Admission Date: Jan 30, 2017 at 22:57 Discharge Date: Jan 31, 2017 Discharge Disposition: Home with services Principal Diagnosis: Syncope Problems/Secondary Diagnoses: 1. CKD, stage V- dialysis dependent 2. HTN 3. T2DM 4. HDL 5. hx of CVA Immunizations: Have You Had Influenza Vaccine: Yes Influenza Vaccine Date: Aug 16, 2013 History of Tetanus Vaccine?: Unknown History of Pneumococcal: Yes History of Hepatitis B Vaccine: Unknown Procedures: CT SCAN OF THE BRAIN WITHOUT IV CONTRAST CLINICAL HISTORY: Weakness. Change in mental status. COMPARISON STUDY: CT and MRI of the brain dated 12/17/2013. TECHNIQUE: Unenhanced axial CT scan of the brain is performed from the vertex to the skull base. CT DOSE: 614.27 mGy.cm FINDINGS: Brain parenchyma: There are age-related involutional changes noting advanced confluent subcortical and periventricular microangiopathic change. There is a septal malacia from a remote right parietal-occipital infarct. Small chronic lacunar infarcts are seen in the caudate heads, the left thalamus, and the left basal ganglia. There is no hemorrhage, mass effect, or evidence of acute territorial ischemia by CT criteria. Gibbons-white matter is preserved. No extra-axial fluid collection is seen. Ventricles, sulci, cisterns: Prominent secondary to involutional change. Intracranial vasculature: There is atherosclerotic calcification of the cavernous carotid and vertebral arteries. Calvarium: Unremarkable. Sinuses and mastoids: Trace mucosal thickening is seen in the left maxillary antrum and the ethmoid sinuses. The remaining visualized paranasal sinuses are clear. The mastoid air cells are well pneumatized. Orbits: The bony orbits are grossly intact. There is a left-sided ocular lens implant. IMPRESSION: Senescent changes and remote infarcts as above. There is no hemorrhage, mass effect, or evidence of acute territorial ischemia by CT criteria. Electronically signed by: Rommel Posada M.D. 01/30/2017 9:07 PM Dictated Date/Time: 01/30/2017 9:03 PM The status of this report is Signed. Draft = Not yet reviewed or approved by Radiologist. Signed = Reviewed and approved by Radiologist. SINGLE VIEW CHEST CLINICAL HISTORY: Change in mental status. Generalized weakness. FINDINGS: An AP, portable, upright chest radiograph is obtained. No prior studies are available for comparison at the time of dictation. The examination is degraded by portable technique and patient rotation. A right internal jugular central venous catheter is in place. The tip of the catheter projects over the SVC. The heart is enlarged and there is atherosclerotic calcification of the thoracic aorta. The pulmonary vasculature is noncongested. The lungs and pleural spaces are clear. No pneumothorax is seen. The skeletal structures are osteopenic. The bony thorax is grossly intact. IMPRESSION: Cardiomegaly with no acute cardiopulmonary abnormality. Electronically signed by: Rommel Posada M.D. 01/30/2017 9:23 PM Dictated Date/Time: 01/30/2017 9:22 PM The status of this report is Signed. Draft = Not yet reviewed or approved by Radiologist. Signed = Reviewed and approved by Radiologist. MRI OF THE BRAIN WITHOUT CONTRAST CLINICAL HISTORY: Change of mental status. Generalized weakness. Suspected stroke. COMPARISON STUDY: MRI the brain dated to , noncontrast head CT dated 01/30/2017 FINDINGS: Sagittal T1, axial diffusion, proton density and T2 weighted axial, coronal FLAIR, and axial T1-weighted images were acquired. No intra or extra-axial mass lesions are visualized Axial diffusion-weighted images reveal no evidence of acute or subacute infarction. There is mild ventricular dilatation, likely secondary to volume loss. Proton density T2-weighted and FLAIR images reveal extensive foci of increased T2 signal within the white matter, likely on a small vessel basis. There is an old right occipital lobe infarct. There is an old lacunar infarct in the left caudate. There is an old deep white matter infarct within the left periventricular white matter. There are no abnormal flow voids. There are few scattered tiny foci of susceptibility artifact, most prominent within the sacha were 3 lesions are visualized. These likely represent old microhemorrhages. IMPRESSION: 1. No evidence of acute or subacute infarction 2. Old right occipital lobe infarct and lacunar infarcts 3. Scattered tiny microhemorrhages, likely old 4. No evidence of intracranial mass Electronically signed by: Napoleon Wesley M.D. 01/31/2017 6:43 AM Dictated Date/Time: 01/31/2017 6:39 AM The status of this report is Signed. Draft = Not yet reviewed or approved by Radiologist. Signed = Reviewed and approved by Radiologist. ECHOCARDIOGRAM Consultations: Nephrology- Dr. Zafar (Claudia oSlano PA-C) Medication Reconciliation Continued Medications: Amlodipine (Norvasc) 10 Mg Tab 10 MG PO DAILY, TAB Aspirin (Aspirin Ec) 325 Mg Tab 325 MG PO DAILY Atorvastatin (Lipitor) 10 Mg Tab 10 MG PO DAILY, TAB B-Complex W/ C & Folic Acid (Marilee-Vince) 1 Tab Tab 1 TAB PO DAILY Carvedilol (Coreg) 6.25 Mg Tab 6.25 MG PO BID, TAB Clopidogrel (Plavix) 75 Mg Tab 75 MG PO DAILY, TAB Sitagliptin (Januvia) 25 Mg Tab 25 MG PO DAILY, TAB Discharge Exam Review of Systems: Constitutional: No chills, No fatigue, No fever, No sweats, No weakness Respiratory: No cough, No hemoptysis, No shortness of breath Cardiovascular: No chest pain, No edema, No palpitations Abdomen: No GI bleeding, No constipation, No diarrhea, No nausea, No pain, No vomiting Musculoskeletal: No calf pain, No joint pain, No muscle pain, No swelling Genitourinary - Male: No dysuria, No hematuria Neurologic: No numbness/tingling, No weakness Psychiatric: No anxiety, No depression symptoms Hematologic / Lymphatic: No abnormal bleeding/bruising Integumentary: No itch, No new/changing skin lesions, No rash Physical Exam: General Appearance: no apparent distress Eyes: normal inspection, PERRL ENT: hearing grossly normal Neck: supple Respiratory/Chest: lungs clear, no respiratory distress, no accessory muscle use Cardiovascular: regular rate, rhythm Abdomen / GI: normal bowel sounds, non tender, soft Extremities: no calf tenderness, no pedal edema Neurologic/Psychiatric: alert, normal mood/affect, oriented x 3 Skin: normal color, warm/dry, no rash (Claudia Solano, DONG-C) Hospital Course 81-year-old male with diabetes, CKD stage V on dialysis, and previous strokes who presents with syncopal episode - differential is broad, but includes hypotension from volume loss from dialysis, vasovagal syncope, CVA, HI, seizure , hypo-or hyperglycemia, or other infection. Syncopal event, likely secondary to hypotension from volume loss due to dialysis : - Admit to tele for cardiac monitoring--> reviewed- no acute events - Trend cardiac enzymes- negative - Check orthostatic BPs - TSH checked - Imaging: -- CT of head- Senescent changes and remote infarcts as above. There is no hemorrhage, mass effect, or evidence of acute territorial ischemia by CT criteria -- Brain MRI- No evidence of acute or subacute infarction. Old right occipital lobe infarct and lacunar infarcts. Scattered tiny microhemorrhages, likely old. No evidence of intracranial mass -- CXR- Cardiomegaly with no acute cardiopulmonary abnormality -- ECHO CKD, stage V- dialysis dependent: - Dialysis in [place] w/ Dr. Lu on Fri - Consult Nephrology, appreciate recommendations - Follow PRP HTN: - Held Carvedilol 25 mg PO BID and Norvasc 10 mg PO daily--> resume at discharge T2DM: - Continue Januvia 25 mg PO daily - BSG AC and HS w/ sliding insulin scale HDL: Continue Lipitor 10 mg PO daily hx of CVA: Continue ASA 325 mg PO daily and Plavix 75 mg PO daily Code Status: LEVEL I, FULL Dispo: Discharge to home w/ health services Total Time Spent: Greater than 30 minutes This includes examination of the patient, discharge planning, medication reconciliation, and communication with other providers. (Claudia Solano, HANYC) 81-year-old male with diabetes, CKD stage V on dialysis, and previous strokes who presents with syncopal episode most likely secondary to hypotension from volume loss from dehydration and dialysis, vasovagal syncope. - Pt denies any other syncope episode,no acute events overnight. - Trend cardiac enzymes- negative - Imaging: -- CT of head- Senescent changes and remote infarcts as above. There is no hemorrhage, mass effect, or evidence of acute territorial ischemia by CT criteria -- Brain MRI- No evidence of acute or subacute infarction. Old right occipital lobe infarct and lacunar infarcts. Scattered tiny microhemorrhages, likely old. No evidence of intracranial mass -- CXR- Cardiomegaly with no acute cardiopulmonary abnormality 2) CKD, stage V- dialysis: - Dialysis in [place] w/ Dr. Lu on , Fri - PT received HD today,did well , no events during HD. - Stable to discharge home. - Follow with Dr Tucker the new PCP with in a week. Pt was seen and examined by me at the bedside , answer all question were answered. (Shawn Flynn MD) Discharge Instructions Please refer to the electronic Patient Visit Report (Discharge Instructions) for additional information. (Claudia Solano ., PASunshineC) Follow-Up Keep scheduled dialysis Please follow-up with your PCP within 5-7 days Please follow-up/keep all of your subspecialty appointments (Claudia Solano ., PA-C)
--- NOTE | 2017-01-31 20:06 | ECHOCARDIOGRAM REPORT ---
*NOTICE TO RECEIVING [employer] This information is strictly Confidential and protected under [place] law. [place] law prohibits you from making any further disclosure of this information unless further disclosure is expressly permitted by the written consent of the person to whom it pertains or is authorized by law. A general authorization for the release of medical or other information is not sufficient for this purpose. Hospital accepts no responsibility if the information is made available to any other person, INCLUDING THE PATIENT. Interpretation Summary * Name: AYAAN FRAUSTO Study Date: 01/31/2017 11:34 AM BP: 113/58 mmHg * Patient Location: C.2T\S\S243\S\1 HR: 72 * : 1935 (M/d/yyy) Gender: Male Height: 71 in * Age: 81 yrs Ethnicity: [place] Weight: 156 lb * Ordering Physician: Luis Denise * Referring Physician: Self, Referred * Performed By: Beatrice Mohr RCS * * Reason For Study: SYNCOPE * BSA: 1.9 m2 * Moderate left ventricular systolic dysfunction. * Mild concentric left ventricular hypertrophy. * Left ventricular diastolic dysfunction. * Moderate left atrial dilatation. * Trace aortic regurgitation. * Trace pulmonic regurgitation. * Mild mitral regurgitation. * Mild aortic root dialtation. * -- Conclusions -- * Aortic valve sclerosis moderate, without significant aortic valvular stenosis. Procedure Details * A complete two-dimensional transthoracic echocardiogram was performed (2D, M-mode, Doppler and color flow Doppler). Left Ventricle * The left ventricle is normal in size. * There is mild concentric left ventricular hypertrophy. * A full diastolic examination was done with clinical findings of Class I diastolic dysfunction. * Left ventricular systolic function is moderately reduced. * Ejection Fraction = 35-40%. * There is moderate global hypokinesis of the left ventricle. * Septal motion is consistent with conduction abnormality. Atria * The left atrium is moderately dilated. * Right atrial size is normal. Mitral Valve * There is mild mitral annular calcification. * There is no mitral valve stenosis. * There is mild mitral regurgitation. Tricuspid Valve * The tricuspid valve is not well visualized, but is grossly normal. * There is no tricuspid stenosis. * Significant tricuspid regurgitation is absent. Aortic Valve * The aortic valve is trileaflet. * Aortic valve sclerosis moderate, without significant aortic valvular stenosis. * Trace aortic regurgitation. Pulmonic Valve * The pulmonary valve is inadequately visualized, but the Doppler data is adequate for interpretation. * Trace pulmonic valvular regurgitation. Great Vessels * Mild aortic root dilatation. Pericardium/Pleural * There is no pericardial effusion. MMode 2D Measurements and Calculations IVSd 1.5 cm IVSs 1.8 cm LVIDd 4.8 cm LVIDs 3.4 cm LVPWd 1.5 cm LVPWs 1.5 cm IVS/LVPW 1.0 FS 29.2 % EDV(Teich) 110.0 ml ESV(Teich) 48.5 ml EF(Teich) 55.9 % EDV(cubed) 113.9 ml ESV(cubed) 40.4 ml EF(cubed) 64.5 % % IVS thick 17.7 % % LVPW thick 1.9 % LV mass(C)d 303.8 grams LV mass(C)dI 160.1 grams/m\S\2 LV mass(C)s 217.1 grams LV mass(C)sI 114.4 grams/m\S\2 SV(Teich) 61.5 ml SI(Teich) 32.4 ml/m\S\2 SV(cubed) 73.5 ml SI(cubed) 38.7 ml/m\S\2 Ao root diam 4.2 cm Ao root area 13.7 cm\S\2 ACS 1.6 cm LA dimension 5.3 cm LA/Ao 1.3 LVOT diam 2.0 cm LVOT area 3.2 cm\S\2 LVAd ap4 46.8 cm\S\2 LVLd ap4 8.9 cm EDV(MOD-sp4) 196.1 ml EDV(sp4-el) 209.1 ml LVAs ap4 37.4 cm\S\2 LVLs ap4 8.5 cm ESV(MOD-sp4) 133.8 ml ESV(sp4-el) 139.1 ml EF(MOD-sp4) 31.8 % EF(sp4-el) 33.5 % SV(MOD-sp4) 62.3 ml SI(MOD-sp4) 32.8 ml/m\S\2 SV(sp4-el) 70.0 ml SI(sp4-el) 36.9 ml/m\S\2 Doppler Measurements and Calculations MV E max jennifer 55.0 cm/sec MV A max jennifer 137.0 cm/sec MV E/A 0.40 MV P1/2t max jennifer 56.8 cm/sec MV P1/2t 104.4 msec MVA(P1/2t) 2.1 cm\S\2 MV dec slope 159.4 cm/sec\S\2 MV dec time 0.27 sec Ao V2 max 127.1 cm/sec Ao max PG 6.5 mmHg Ao max PG (full) 4.5 mmHg NGHIA(V,A) 1.8 cm\S\2 NGHIA(V,D) 1.8 cm\S\2 AI max jennifer 272.5 cm/sec AI max PG 29.7 mmHg AI dec slope 115.2 cm/sec\S\2 AI P1/2t 692.9 msec LV V1 max PG 2.0 mmHg LV V1 max 70.6 cm/sec MR max jennifer 445.4 cm/sec MR max PG 79.4 mmHg PA V2 max 91.8 cm/sec PA max PG 3.4 mmHg PI max jennifer 131.8 cm/sec PI max PG 7.0 mmHg PI dec slope 91.1 cm/sec\S\2 PI P1/2t 423.8 msec
--- NOTE | 2017-01-31 21:06 | DIAGNOSTIC IMAGING REPORT ---
BILATERAL CAROTID DOPPLER STUDY HISTORY: Mental status change eval for ICA stenosis, posterior circulation compromise COMPARISON: 12/11/2013 TECHNIQUE: Real-time, grayscale, and color Doppler sonography of the carotid arteries was performed. Imaging reviewed in the transverse and longitudinal planes. All measurements were calculated based on NASCET criteria. FINDINGS: Antegrade flow is seen in the bilateral vertebral arteries. The brachial pressures are hemodynamically similar. Mild plaque formation bilaterally The peak systolic velocity within the right ICA is 67. The right systolic ratio is 0.9. The peak systolic velocity within the left ICA is 86. The left systolic ratio is 1.12. IMPRESSION: Minimal to mild plaque bilaterally. No significant stenotic process. No change from the prior exam. Electronically signed by: Salvador Evans M.D. 01/31/2017 9:04 PM Dictated Date/Time: 01/31/2017 9:03 PM
[2017-02-01] VITALS (23 sets, daily range): BP systolic 115–154; BP diastolic 52–81; PULSE 51–74; TEMP 36.4–36.9; O2SAT 97–100
[2017-02-01] LABS: CKMB/CK RATIO 1.1 (0-3.0)
[2017-02-01 07:07] LABS: BASO % 0.4 %; BASO ABS # 0.03 K/uL (0-0.2); COMPLETE YES; EOS % 8.4 %; HEMATOCRIT 28.6 % (42-52); IG% 0.3 %; LYMPH % 28.7 %; LYMPH ABS # 2.11 K/uL (1.2-3.4); MEAN CELL VOLUME 94.4 fL (80-100); MEAN CORPUSCULAR HEMOGLOBIN 31.7 pg (25-34); MEAN CORPUSCULAR HGB CONC 33.6 g/dl (32-36); MEAN PLATELET VOLUME 9.6 fL (7.4-10.4); MONO % 15.2 %; PLATELET COUNT 224 K/uL (130-400); RED BLOOD COUNT 3.03 M/uL (4.7-6.1); WHITE BLOOD COUNT 7.36 K/uL (4.8-10.8)
[2017-02-01 08:03] LABS: CALCIUM 8.6 mg/dl (8.5-10.1); CREATININE 4.7 mg/dl (0.60-1.40); POTASSIUM 4.1 mmol/L (3.5-5.1)
[2017-02-01] MEDS: ATORVASTATIN 10 MG TAB PO SCH (08:13)
[2017-02-01] MEDS: SITAGLIPTIN 25 MG TAB PO SCH (08:14)
[2017-02-01] MEDS: VITAMIN B COMPLEX TAB PO SCH (08:14)
[2017-02-01] MEDS ORDERED: CLOPIDOGREL BISULFATE 75 MG TAB PO SCH (09:00)
[2017-02-01] MEDS: CARVEDILOL 6.25 MG TAB PO SCH (09:00)
[2017-02-01] MEDS: AMLODIPINE BESYLATE 5 MG TAB PO SCH (09:00)
[2017-02-01] MEDS ORDERED: ASPIRIN 325 MG ECTAB PO SCH (09:00)
[2017-02-01] MEDS ORDERED: HEPARIN SOD (PORCINE) 1000 UNIT/ML 10 ML VIAL IV SCH (10:15)
--- NOTE | 2017-02-01 10:20 | Dialysis Progress Note ---
Hemodialysis Note Date of Service Feb 01, 2017. Chief Complaint ESRD Subjective No acute events overnight. No complaints this morning. Denies shortness of breath. No lightheadedness. No chest pain or palpitations. Appetite good. Review of Systems A complete review of systems was performed. Pertinent positives are noted above. All other systems are negative. Vital Signs Last 8 Hrs Date Time Temp Pulse Resp B/P Pulse Ox O2 Delivery O2 Flow Rate FiO2 02/01/17 07:51 36.5 74 18 115/62 97 Room Air 02/01/17 04:31 36.9 68 18 117/68 98 Room Air 02/01/17 04:07 97 Room Air I & O 24-Hour Column 02/01/17 08:00 Intake Total 710 ml Output Total 2450 ml Balance -1740 ml Last Recorded Weight Weight (Kilograms): 71.300 Physical Exam General Appearance: WD/WN, no apparent distress Head: normocephalic, atraumatic Eyes: normal inspection, sclerae normal ENT: normal ENT inspection, pharynx normal Neck: supple, no JVD, + pertinent finding ([facility] HD permcath) Respiratory/Chest: lungs clear, no respiratory distress, no accessory muscle use Cardiovascular: regular rate, rhythm Abdomen/GI: non tender, soft Extremities/Musculoskelatal: no calf tenderness, no pedal edema Neurologic/Psych: alert, oriented x 3 Social History Smoking Status: Former smoker Marital Status: Occupation: retired Laboratory Results Past 24 Hours 02/01/17 06:40 Red Blood Count 3.03, Mean Corpuscular Volume 94.4, Mean Corpuscular Hemoglobin 31.7, Mean Corpuscular Hemoglobin Concent 33.6, Mean Platelet Volume 9.6, Neutrophils (%) (Auto) 47.0, Lymphocytes (%) (Auto) 28.7, Monocytes (%) (Auto) 15.2, Eosinophils (%) (Auto) 8.4, Basophils (%) (Auto) 0.4, Neutrophils # (Auto ) 3.46, Lymphocytes # (Auto) 2.11, Monocytes # (Auto) 1.12, Eosinophils # (Auto ) 0.62, Basophils # (Auto) 0.03 02/01/17 06:40 Test 01/31/17 10:37 01/31/17 10:44 01/31/17 16:59 01/31/17 23:25 Total Creatine Kinase 137 U/L (39-308) 128 U/L (39-308) 106 U/L (39-308) Creatine Kinase MB 1.9 ng/ml (0.5-3.6) 1.3 ng/ml (0.5-3.6) 1.2 ng/ml (0.5-3.6) Creatine Kinase MB Ratio 1.4 (0-3.0) 1.0 (0-3.0) 1.1 (0-3.0) Troponin I < 0.015 ng/ml (0-0.045) < 0.015 ng/ml (0-0.045) < 0.015 ng/ml (0-0.045) Bedside Glucose 153 mg/dl (70-99) Test 02/01/17 06:40 White Blood Count 7.36 K/uL (4.8-10.8) Red Blood Count 3.03 M/uL (4.7-6.1) Hemoglobin 9.6 g/dL (14.0-18.0) Hematocrit 28.6 % (42-52) Mean Corpuscular Volume 94.4 fL (80-100) Mean Corpuscular Hemoglobin 31.7 pg (25-34) Mean Corpuscular Hemoglobin Concent 33.6 g/dl (32-36) Platelet Count 224 K/uL (130-400) Mean Platelet Volume 9.6 fL (7.4-10.4) Neutrophils (%) (Auto) 47.0 % Lymphocytes (%) (Auto) 28.7 % Monocytes (%) (Auto) 15.2 % Eosinophils (%) (Auto) 8.4 % Basophils (%) (Auto) 0.4 % Neutrophils # (Auto) 3.46 K/uL (1.4-6.5) Lymphocytes # (Auto) 2.11 K/uL (1.2-3.4) Monocytes # (Auto) 1.12 K/uL (0.11-0.59) Eosinophils # (Auto) 0.62 K/uL (0-0.5) Basophils # (Auto) 0.03 K/uL (0-0.2) RDW Standard Deviation 45.3 fL (36.4-46.3) RDW Coefficient of Variation 13.5 % (11.5-14.5) Immature Granulocyte % (Auto) 0.3 % Immature Granulocyte # (Auto) 0.02 K/uL (0.00-0.02) Anion Gap 6.0 mmol/L (3-11) Est Creatinine Clear Calc Drug Dose 12.2 ml/min Estimated GFR () 12.5 Estimated GFR (Non- 10.7 BUN/Creatinine Ratio 6.0 (10-20) Calcium Level 8.6 mg/dl (8.5-10.1) Iron Level 39 mcg/dl (35-175) Total Iron Binding Capacity 212 mcg/dl (250-450) Transferrin 186 mg/dl (200-360) Transferrin % Saturation 15 % (20-50) Ferritin 172.0 ng/ml (8.0-388.0) Allergies Coded Allergies: Penicillins (Verified Allergy, Unknown, rash, 01/30/17) Medications Current Inpatient Medications Medications (Trade) Dose Ordered Sig/Don Route Start Time Stop Time Status Last Admin Dose Admin Amlodipine Besylate (Norvasc Tab) 10 mg DAILY PO 01/31/17 09:00 03/02/17 08:59 01/31/17 07:45 10 MG Atorvastatin Calcium (Lipitor Tab) 10 mg DAILY PO 01/31/17 09:00 03/02/17 08:59 02/01/17 08:13 10 MG Carvedilol (Coreg Tab) 6.25 mg BID PO 01/31/17 09:00 03/02/17 08:59 01/31/17 22:06 6.25 MG Sitagliptin Phosphate (Januvia Tab) 25 mg DAILY PO 01/31/17 09:00 03/02/17 08:59 02/01/17 08:14 25 MG Vitamin B Complex (Vitamin B Complex) 1 tab DAILY PO 01/31/17 09:00 03/02/17 08:59 02/01/17 08:14 1 TAB Clopidogrel Bisulfate (plAVix TAB) 75 mg QAM PO 02/01/17 09:00 03/03/17 08:59 02/01/17 08:15 75 MG Aspirin (Ecotrin Tab) 325 mg QAM PO 02/01/17 09:00 03/03/17 08:59 02/01/17 08:14 325 MG Heparin Sodium (Porcine) (Heparin Iv Bolus) 2,000 unit ONE IV 02/01/17 10:15 02/01/17 10:16 UNV Heparin Sodium (Porcine) (Heparin Iv Bolus) 1,000 unit Q1H IV 02/01/17 10:15 02/01/17 12:16 UNV Impression (1) ESRD on hemodialysis (2) HTN (hypertension) (3) CVA (cerebral vascular accident) (4) Diabetes mellitus (5) Syncope Mr. Montesinos is an 81-year-old male with ESRD on hemodialysis who was admitted with a syncopal episode. He is maintained on HD at [facility] under the care of Dr. Lu on a TTS schedule. Last dialysis treatment was . Blood pressure, volume status and electrolytes are appropriate. Recommendations ESRD: -- HD today per TTS schedule, orders entered into EMR -- UF ~1 kg as tolerated -- Medications appropriate for renal function -- TDC care per protocol Anemia: -- Venofer 200 mg for iron deficiency -- Procrit 4000 with HD today Hypertension: -- Blood pressure and volume status appropriate
[2017-02-01] MEDS: HEPARIN SOD (PORCINE) 1000 UNIT/ML 10 ML VIAL IV SCH ×3 (12:00→13:47)
[2017-02-01] MEDS ORDERED: IRON SUCROSE INJ 200 MG in SYRINGE 0 ML IV SCH (12:00)
[2017-02-01] MEDS ORDERED: EPOETIN ALFA 4000 UNITS/ML VIAL IV SCH (14:00)
[2017-02-01] MEDS ORDERED: NRV5 PO (16:08)
[2017-02-21] MEDS ORDERED: AMLO-110 PO (09:58)
[2017-02-21] MEDS ORDERED: DOCU100C31 PO (09:59)
[2017-03-05] MEDS ORDERED: OXYC-57 PO (13:50)
== END 2017-02-01 17:19 | disposition home health service (06) | DRG 312 ==
LOC: ENRESERVTM → ENRESERVDT → EDBD 19:52 → C.EDB 19:54 → C.2T 22:57
PROVIDERS: ADMIT Hospitalist; ATTEND Internal Medicine
DX: I95.3 Hypotension of hemodialysis (principal); N18.5 Chronic kidney disease, stage 5; I12.0 Hypertensive chronic kidney disease with stage 5 chronic kidney disease or end stage renal disease; I69.351 Hemiplegia and hemiparesis following cerebral infarction affecting right dominant side; E86.1 Hypovolemia; R55 Syncope and collapse; I69.328 Other speech and language deficits following cerebral infarction; I69.392 Facial weakness following cerebral infarction; E11.22 Type 2 diabetes mellitus with diabetic chronic kidney disease; D64.9 Anemia, unspecified; E78.00 Pure hypercholesterolemia, unspecified; E78.5 Hyperlipidemia, unspecified; Z99.2 Dependence on renal dialysis; Z87.891 Personal history of nicotine dependence; Z79.01 Long term (current) use of anticoagulants; Z79.82 Long term (current) use of aspirin; Z79.84 Long term (current) use of oral hypoglycemic drugs; Z79.899 Other long term (current) drug therapy

== ENCOUNTER 2017-03-05 09:44 | Day surgery (SDC) | payer OTHER, BC ==
[2017-02-21 10:01] VITALS: BMI 23.0
--- NOTE | 2017-02-21 10:39 | PAT Medication Instructions ---
Service Date Feb 21, 2017. Current Home Medication List Amlodipine (Norvasc), 5 MG PO QAM Aspirin (Aspirin Ec), 325 MG PO QAM Atorvastatin (Lipitor), 10 MG PO QAM B-Complex W/ C & Folic Acid (Marilee-Vince), 1 TAB PO QPM Carvedilol (Coreg), 6.25 MG PO BID Clopidogrel (Plavix), 75 MG PO QAM Docusate Sodium (Docusate Sodium), 1 CAP PO BID PRN for PRN Sitagliptin (Januvia), 25 MG PO QAM Medication Instructions For Your Scheduled Surgery - Check with surgeon/PCP for instructions: Aspirin (Aspirin Ec), 325 MG PO QAM Clopidogrel (Plavix), 75 MG PO QAM - Hold the following medications the morning of surgery: Sitagliptin (Januvia), 25 MG PO QAM Docusate Sodium (Docusate Sodium), 1 CAP PO BID PRN for PRN - Take the following medications the morning of surgery with a sip of water: Carvedilol (Coreg), 6.25 MG PO BID Atorvastatin (Lipitor), 10 MG PO QAM Amlodipine (Norvasc), 5 MG PO QAM\ - Take the following medications as scheduled the night before surgery: Docusate Sodium (Docusate Sodium), 1 CAP PO BID PRN for PRN Carvedilol (Coreg), 6.25 MG PO BID B-Complex W/ C & Folic Acid (Marilee-Vince), 1 TAB PO QPM If you have any questions please call us at [phone] (Mary Rodriguez PA-C) or [phone] or [phone]
[2017-02-21 11:27] LABS: BASO % 0.3 %; BASO ABS # 0.02 K/uL (0-0.2); COMPLETE YES; HEMATOCRIT 36.7 % (42-52); IG% 0.7 %; LYMPH % 18.4 %; LYMPH ABS # 1.41 K/uL (1.2-3.4); MEAN CELL VOLUME 97.1 fL (80-100); MEAN PLATELET VOLUME 9.9 fL (7.4-10.4); MONO % 16.4 %; NEUT % 58.2 %; PLATELET COUNT 195 K/uL (130-400); RED BLOOD COUNT 3.78 M/uL (4.7-6.1); WHITE BLOOD COUNT 7.67 K/uL (4.8-10.8)
[2017-02-21 11:41] LABS: PROTHROMBIN TIME (PATIENT) 10.6 SECONDS (9.0-12.0)
[2017-02-21 11:41] LABS: BUN/CREATININE RATIO 5.3 (10-20); CALCIUM 8.8 mg/dl (8.5-10.1); POTASSIUM 4.3 mmol/L (3.5-5.1)
[~2017-03-05] VITALS: Ht 180.3 cm; Wt 76.1 kg
--- NOTE | 2017-03-05 06:08 | History and Physical ---
History & Physical Date of Service Mar 05, 2017. History & Physical CC: End stage renal disease HPI: Mr. Montesinos is an 81-year-old male with diabetes mellitus, end-stage renal disease, currently on dialysis Friday, , and Friday who presents to clinic today to discuss permanent access placement for hemodialysis. He currently dialyzes via a right internal jugular tunneled hemodialysis line. Mr. Montesinos had undergone previous hemodialysis mapping, which demonstrated that he had very small veins in bilateral upper extremities, not adequate for AV fistula creation. He was advised he would probably need AV graft placed. He states that he previously had a CVA approximately 3 years ago. Since that time, he has had significant right upper extremity weakness. In spite being right-hand dominant, he uses his left hand to support him with walking with the assistance of a walker or a cane. He does most of his activities with his left hand now due to his residual weakness. He denies any symptoms of claudication, rest pain, or critical limb ischemia. Denies any new back or belly pain. He denies any further stroke or TIA like symptoms since his stroke 3 years ago. PAST MEDICAL HISTORY: Significant for [id number] diabetes, CVA, and hypertension. PAST SURGICAL HISTORY: None. SOCIAL HISTORY: He lives at home with his in [place]. Denies smoking, drinking, or illicit substances. REVIEW OF SYSTEMS: Negative except for what is stated above in the HPI. PHYSICAL EXAM: His heart rate is 75, blood pressure is 124/62, satting 98% on room air. His weight is 74.6 kg. This is an 81-year-old male, sitting in the office, in no acute distress. Head is normocephalic. He does have some right- sided facial droop and his speech is slurred. Heart is regular. Lungs are clear. Abdomen is soft, nontender, nondistended. He has palpable bilateral radial pulses. His right arm is only 4/5 compared to the left which is 5/5. He has palpable femoral pulses. He does not have palpable distal pulses, but his feet are warm. He has cap refill. He denies any side effects. ASSESSMENT: End stage renal disease Plan: Patient is admitted for creation of a right upper extremity prosthetic av fistula creation. I have discussed the risks options and benefits of the procedure with the patient. The patient understands the risks options and benefits and agrees to the procedure.
[~2017-03-05 09:44] MED LIST changes: +AMLO-110 PO; -AMLO-114 PO; -ASPEC325 PO; +ASPI325T39 PO; +ATOR10TA82 PO; +ATROPINE SULFATE 0.1 MG/ML 5ML SYR IV PRN; +B-COTAB97 PO; +CARV6.252 PO; +CLINDAMYCIN 600 MG/54 ML D5W IV SCH; +DOCU100C31 PO; +EpHEDrine SULFATE INJ 50 MG/ML AMP IV PRN; +FENTANYL CITRATE INJ 50 MCG/1 ML 2 ML VIAL IV PRN; -GLC/500 PO; -GLYB3TAB3 PO; -LISI-461 PO; -LPT10 PO; +ONDANSETRON INJ 2 MG/ML 2 ML VIAL IV PRN; +SITA25TA PO; +SODIUM CHLORIDE 0.9% 1000ML 1,000 ML IV SCH
[2017-03-05 10:32] VITALS: BP 124/65; PULSE 64; TEMP 36.7; O2SAT 100; Ht 180.3 cm; Wt 76.1 kg
[2017-03-05] MEDS ORDERED: MIDAZOLAM HCL 1 MG/ML 2ML VIAL ONE ×2 (10:42)
[2017-03-05] MEDS ORDERED: KETAMINE HCL INJ 50 MG/ML 10 ML VIAL ONE (10:43)
[2017-03-05 11:22] LABS: BUN/CREATININE RATIO 6.6 (10-20); CALCIUM 8.8 mg/dl (8.5-10.1); CREATININE 4.5 mg/dl (0.60-1.40); POTASSIUM 4.2 mmol/L (3.5-5.1)
--- NOTE | 2017-03-05 11:48 | History & Physical Bridge Note ---
H&P Re-Evaluation Bridge Note: I have examined the patient, reviewed the History & Physical and in the interval since the performance of the History & Physical I have noted the following changes of clinical significance: No changes noted
[2017-03-05] MEDS ORDERED: THROMBIN FOR SOLN 20000 UNIT KIT ONE (11:50)
[2017-03-05] MEDS ORDERED: GELATIN SPONGE 12-7MM ONE (11:50)
[2017-03-05] MEDS ORDERED: BUPIVACAINE/EPINEPHRINE 0.5% MPF 1:200,000 30 ML VIAL ONE (11:51)
[2017-03-05] MEDS ORDERED: LIDOCAINE HCL 1% 20 ML VIAL ONE (11:51)
[2017-03-05] MEDS ORDERED: HEPARIN SOD (PORCINE) 1000 UNIT/ML 10 ML VIAL ONE (11:51)
[2017-03-05] MEDS ORDERED: PROPOFOL IV EMULSION 10 MG/ML 20 ML VIAL IV ONE ×2 (12:35→13:43)
--- NOTE | 2017-03-05 13:48 | [facility] Post Operative Brief Note ---
Immediate Operative Summary Operative Date Mar 05, 2017. Pre-Operative Diagnosis End stage renal disease Post-Operative Diagnosis End stage renal disease Procedure(s) Performed Right Upper Arm Prosthetic Arteriovenous Access Surgeon Dr. Ernesto Bellamy Produce Weigher Surgeon(s) Sonya Galvan, Hernando Estimated Blood Loss 30mL Findings good thrill, fingers with good cap refill Specimens None per surgeon Anesthesia MAC Complication(s) None Disposition Recovery Room / PACU
[2017-03-05] MEDS ORDERED: OXYC-57 PO (13:50)
--- NOTE | 2017-03-05 13:51 | Discharge Instructions ---
Discharge Instructions Date of Service Mar 05, 2017. Visit Reason for Visit: End Stage Renal Disease Discharge Discharge Diagnosis / Problem: End stage renal disease Discharge Goals Goal(s): Therapeutic intervention Activity Recommendations Activity Limitations: per Instructions/Follow-up section Anesthesia . Post Anesthesia Instructions: If you have had General Anesthesia or IV Sedation: * Do not drive today. * Resume driving when surgeon permits. * Do not make important decisions or sign legal documents today. * Call surgeon for: 1. Temperature elevations greater than 101 degrees F. 2. Uncontrollable pain. 3. Excessive bleeding. 4. Persistent nausea and vomiting. 5. Medication intolerance (nausea, vomiting or rash). * For nausea and vomiting use only clear liquids such as: tea, soda, bouillon until nausea subsides, then gradually increase diet as tolerated. * If you have any concerns or questions, call your surgeon's office. If physician is unavailable and it is an emergency, call 911 or go to the nearest emergency room. . Instructions / Follow-Up Instructions / Follow-Up Call [phone] to schedule a follow up appointment if one not already scheduled. ACTIVITY RECOMMENDATIONS: See Above SPECIAL CARE INSTRUCTIONS: Call your doctor if: * Temperature above 101 degrees * Pain not relieved by pain medicine ordered * There is increased drainage or redness from any incision * You have any unanswered questions or concerns. Diet Recommendations Recommended Home Diet: resume previous diet Procedures Procedures Performed: Right Upper Arm Prosthetic Arteriovenous Access Pending Studies Studies pending at discharge: no Medical Emergencies . Who to Call and When: Medical Emergencies: If at any time you feel your situation is an emergency, please call 911 immediately. . Non-Emergent Contact Non-Emergency issues call your: Surgeon . . "Provider Documentation" section prepared by Ernesto Bellamy. .
--- NOTE | 2017-03-05 14:31 | OPERATIVE REPORT ---
DATE OF OPERATION: 03/05/2017 PREOPERATIVE DIAGNOSIS: End-stage renal disease requiring hemodialysis. POSTOPERATIVE DIAGNOSIS: Same. PROCEDURE: Right brachial axillary AV graft with 6 mm George Acuseal graft. SURGEON: Dr. Ernesto Bellamy. FIBERGLASS ROLLER: Dr. Sonya Worley. ESTIMATED BLOOD LOSS: 100. ANESTHESIA: Local plus conscious sedation. FLUIDS: 400 mL. COMPLICATIONS: None apparent. CONDITION: Stable to PACU. INDICATIONS: Mr. Remington Montesinos is an 81-year-old male who is currently receiving hemodialysis on Friday, , Friday via a right tunneled hemodialysis catheter. He presented to the clinic to discuss long-term hemodialysis access placement. At that time, he had venous mapping which did show that he did not have any suitable vein for fistula creation, so he was advised of the risks and benefits of an AV graft and agreed to undergo the above procedure. PROCEDURE: The patient was brought into the operative suite. A timeout occurred. He was prepped and draped in usual fashion. An incision was made over the brachial artery in the arm just above the antecubital fossa. The brachial artery was identified and dissected out. Next, incision was made in the upper arm just distal to the axilla. This was a longitudinal incision and the axillary vein was identified and dissected out. A tunneler was then used to create a tunnel along the dorsal portion of the arm and slight curve connecting the 2 incisions. The graft was passed through the tunneler. Attention was turned to the axillary vein and an end-to-side anastomosis was obtained. Hemostasis was obtained with a couple of repair stitches and attention was then turned to the arterial anastomosis. The brachial artery was controlled with 2 angled DeBakey clamps. An 11 blade was used to make an arteriotomy and this was extended with Martin scissors. An anastomosis was created in an end-to-side fashion. This was then inspected for hemostasis. Attention returned to the axilla where there was some bleeding from the venous anastomosis. This again was repaired with a repair stitch. Once hemostasis was obtained, the wounds were closed with running 3-0 and 4-0 Vicryl sutures and Dermabond. The patient tolerated the procedure well. Dr. Ernesto Bellamy was present and scrubbed for the entirety of this case. I attest to the content of the Intraoperative Record and any orders documented therein. Any exceptions are noted below. I, Dr. Bellamy was present and scurbbed for the entire procedure. [facility]
--- NOTE | 2017-03-05 14:44 | Anesthesiology Progress Note ---
Anesthesia Post Op Note Date & Time Mar 05, 2017 at 14:43 Vital Signs Pain Intensity: 0 Vital Signs Past 12 Hours Date Time Temp Pulse Resp B/P Pulse Ox O2 Delivery O2 Flow Rate FiO2 03/05/17 14:31 134/62 03/05/17 14:30 36.1 56 15 134/62 100 Room Air 03/05/17 14:29 55 13 03/05/17 14:29 54 13 100 03/05/17 14:26 110/56 03/05/17 14:24 54 16 03/05/17 14:24 54 16 100 03/05/17 14:21 126/68 03/05/17 14:19 54 11 03/05/17 14:19 55 11 100 03/05/17 14:16 120/54 03/05/17 14:14 52 7 03/05/17 14:14 52 7 100 03/05/17 14:11 120/57 03/05/17 14:10 125/56 03/05/17 14:09 52 12 03/05/17 14:09 36.2 52 12 120/57 100 Mask 10 03/05/17 14:09 12 03/05/17 10:32 36.7 64 20 124/65 100 Room Air Notes Mental Status: alert / awake / arousable, participated in evaluation Pt Amnestic to Procedure: Yes Nausea / Vomiting: adequately controlled Pain: adequately controlled Airway Patency, RR, SpO2: stable & adequate BP & HR: stable & adequate Hydration State: stable & adequate Anesthetic Complications: no major complications apparent
[2017-03-05 14:50] VITALS: BP 134/62; PULSE 57; TEMP 36; O2SAT 100
[2017-03-05 15:25] VITALS: BP 148/67; PULSE 62; TEMP 36.2; O2SAT 100
== END 2017-03-05 16:00 | disposition home or self-care (01) ==
LOC: C.ACU 09:44
PROVIDERS: ATTEND Surgery Vascular Surgery
DX: E11.22 Type 2 diabetes mellitus with diabetic chronic kidney disease (principal); I12.0 Hypertensive chronic kidney disease with stage 5 chronic kidney disease or end stage renal disease; N18.6 End stage renal disease; Z99.2 Dependence on renal dialysis; Z86.73 Personal history of transient ischemic attack (TIA), and cerebral infarction without residual deficits; Z79.82 Long term (current) use of aspirin; Z79.899 Other long term (current) drug therapy; Z79.02 Long term (current) use of antithrombotics/antiplatelets

== ENCOUNTER 2017-04-14 07:58 | Day surgery (SDC) | payer OTHER, BC ==
[~2017-04-14] VITALS: Ht 177.8 cm; Wt 79.0 kg
--- NOTE | 2017-04-14 07:51 | History and Physical ---
History & Physical Date of Service Apr 14, 2017. History & Physical CC: End stage renal disease, functioning fistula HPI: Mr. Montesinos is an 81-year-old male with diabetes mellitus, end-stage renal disease, currently on dialysis Friday, , and Friday who presents to clinic today to discuss permanent access placement for hemodialysis. He currently dialyzes via a right internal jugular tunneled hemodialysis line. Mr. Montesinos had undergone previous hemodialysis mapping, which demonstrated that he had very small veins in bilateral upper extremities, not adequate for AV fistula creation. He was advised he would probably need AV graft placed. He states that he previously had a CVA approximately 3 years ago. Since that time, he has had significant right upper extremity weakness. In spite being right-hand dominant, he uses his left hand to support him with walking with the assistance of a walker or a cane. He does most of his activities with his left hand now due to his residual weakness. He had a left arm fistula placed which is working nicely. He denies any symptoms of claudication, rest pain, or critical limb ischemia. Denies any new back or belly pain. He denies any further stroke or TIA like symptoms since his stroke 3 years ago. PAST MEDICAL HISTORY: Significant for [id number] diabetes, CVA, and hypertension. PAST SURGICAL HISTORY: None. SOCIAL HISTORY: He lives at home with his in [place]. Denies smoking, drinking, or illicit substances. REVIEW OF SYSTEMS: Negative except for what is stated above in the HPI. PHYSICAL EXAM: His heart rate is 75, blood pressure is 124/62, satting 98% on room air. His weight is 74.6 kg. This is an 81-year-old male, sitting in the office, in no acute distress. Head is normocephalic. He does have some right- sided facial droop and his speech is slurred. Heart is regular. Lungs are clear. Abdomen is soft, nontender, nondistended. He has palpable bilateral radial pulses. His right arm is only 4/5 compared to the left which is 5/5. He has palpable femoral pulses. He does not have palpable distal pulses, but his feet are warm. He has cap refill. He denies any side effects..Good thrill in fistula. ASSESSMENT: End stage renal disease Functioning fistula Plan: Patient is admitted for removal of his permcath.. I have discussed the risks options and benefits of the procedure with the patient. The patient understands the risks options and benefits and agrees to the procedure.
[~2017-04-14 07:58] MED LIST changes: -ATROPINE SULFATE 0.1 MG/ML 5ML SYR IV PRN; -CLINDAMYCIN 600 MG/54 ML D5W IV SCH; -EpHEDrine SULFATE INJ 50 MG/ML AMP IV PRN; -FENTANYL CITRATE INJ 50 MCG/1 ML 2 ML VIAL IV PRN; -ONDANSETRON INJ 2 MG/ML 2 ML VIAL IV PRN; +OXYC-57 PO; -SODIUM CHLORIDE 0.9% 1000ML 1,000 ML IV SCH
[2017-04-14 08:43] VITALS: BP 141/67; PULSE 69; TEMP 36.6; O2SAT 98; Ht 177.8 cm; Wt 79.0 kg
[2017-04-14] MEDS ORDERED: CALC667C4 PO (09:07)
[2017-04-14] MEDS ORDERED: LIDOCAINE HCL 1% 20 ML VIAL ONE (09:43)
[2017-04-14] MEDS ORDERED: LIDOCAINE HCL 1% 20 ML VIAL SQ ONE (10:05)
--- NOTE | 2017-04-14 10:05 | [facility] Post Operative Brief Note ---
Immediate Operative Summary Operative Date Apr 14, 2017. Pre-Operative Diagnosis Functioning Fistula Post-Operative Diagnosis Same Procedure(s) Performed Removal Of Perm Catheter Surgeon Dr. Bellamy Strip Catcher Surgeon(s) Dr. Laura Moore Estimated Blood Loss 0 Findings catheter and cuff removed Specimens a: Explant Perm Catheter Anesthesia Local Complication(s) None Disposition
--- NOTE | 2017-04-14 10:06 | Discharge Instructions ---
Discharge Instructions Date of Service Apr 14, 2017. Visit Reason for Visit: End Stage Renal Disease, Functioning Fistula Discharge Discharge Diagnosis / Problem: Functioning fistula Discharge Goals Goal(s): Therapeutic intervention Activity Recommendations Activity Limitations: resume your previous activity Shower/Bathe: tomorrow Anesthesia . Post Anesthesia Instructions: If you have had General Anesthesia or IV Sedation: * Do not drive today. * Resume driving when surgeon permits. * Do not make important decisions or sign legal documents today. * Call surgeon for: 1. Temperature elevations greater than 101 degrees F. 2. Uncontrollable pain. 3. Excessive bleeding. 4. Persistent nausea and vomiting. 5. Medication intolerance (nausea, vomiting or rash). * For nausea and vomiting use only clear liquids such as: tea, soda, bouillon until nausea subsides, then gradually increase diet as tolerated. * If you have any concerns or questions, call your surgeon's office. If physician is unavailable and it is an emergency, call 911 or go to the nearest emergency room. . Instructions / Follow-Up Instructions / Follow-Up Call [phone] with any questions or concerns. Remove dressing tomorrow SPECIAL CARE INSTRUCTIONS: Medications: * Continue to take your medications as directed. If you have been given a prescription for Plavix, please fill it immediately and take as directed. Incision Care: * Your puncture site may have some bruising and minor swelling for about one week. * You will have a small dressing covering your puncture site. You may remove the dressing after 24 hours and shower. You may let the warm soapy water run over it, but be sure to dry the puncture site well and keep it dry. * DO NOT IMMERSE THE INCISION IN A TUB/POOL/etc. UNTIL HEALED. * Puncture sites should be kept covered with a band-aid until it begins to heal. Restrictions: * Depending on whether you leg or arm was punctured to access the arteries, you will be required to lay flat, hold your arm still, or both, for about 4 hours after the procedure to prevent bleeding. * Limit your activity for the first 48 hours. You may walk and go up and down steps. Avoid excessive bending or movement at the puncture site. Possible Complications: * Excessive Swelling - after blood flow is improved you may notice increased swelling in the lower legs. This is a normal response. This usually depends on the amount of blockages in the leg, how long they have been there prior to your procedure and how much blood flow was restored. Elevating your legs will help to improve this. Please notify our office ([phone] ) if the swelling does not go away after lying in bed overnight. * Infection/Drainage/Bleeding - Drainage or bleeding from the puncture site should be minimal. If you have excessive bleeding or drainage, call our office ([phone]) right away. * Pain - You may experience some mild pain or soreness at your puncture site. If your pain does not improve, please contact our office ([phone]). Call your doctor and seek emergent treatment if you develop: * Temperature above 101 degrees * Any fever or chills * Any redness or purulent drainage from the puncture site * Any new dusky/blue colored toes or feet with coolness or sharp or aching pain. SKIN IRRITATION: * You may experience some redness and/or swelling in the area where radiation was administered. If any skin irritation occurs, please contact your family physician. FOLLOW UP VISIT: Keep any scheduled doctor appointments. Diet Recommendations Recommended Home Diet: resume previous diet Procedures Procedures Performed: Removal Of Perm Catheter Pending Studies Studies pending at discharge: no Medical Emergencies . Who to Call and When: Medical Emergencies: If at any time you feel your situation is an emergency, please call 911 immediately. . Non-Emergent Contact Non-Emergency issues call your: Surgeon . . "Provider Documentation" section prepared by Ernesto Bellamy. .
[2017-04-14 10:12] VITALS: BP 162/72; PULSE 64; TEMP 36.6; O2SAT 99
[2017-04-14 10:30] VITALS: BP 146/70; PULSE 70; O2SAT 99
[2017-04-14 10:45] VITALS: BP 152/66; PULSE 69; TEMP 36.6; O2SAT 97
--- NOTE | 2017-04-14 11:10 | DIAGNOSTIC IMAGING REPORT ---
DATE OF PROCEDURE: 04/14/2017 PREOPERATIVE DIAGNOSIS: Right IJ PermCath no longer needed. POSTOPERATIVE DIAGNOSIS: Right IJ PermCath no longer needed. PROCEDURE: Removal of tunneled right IJ PermCath. SURGEON: Dr. Ernesto Bellamy. FLIGHT CONTROL SPECIALIST: Dr. Laura Moore. ANESTHESIA: Local. ESTIMATED BLOOD LOSS: 1 mL. CONDITION: Stable. COMPLICATIONS: None. INDICATIONS FOR PROCEDURE: Mr. Remington Montesinos is an 81-year-old gentleman with an end-stage renal disease on hemodialysis. He had a right tunneled IJ catheter placed at an outside institution. He is no longer requiring the catheter. For this reason, he was recommended to undergo removal of his tunneled right IJ PermCath. Risks, benefits and alternatives were discussed with the patient and he consented to the procedure. DESCRIPTION OF PROCEDURE: The patient was taken to the [facility] and placed in supine position. His right neck and chest were prepped and draped in the usual sterile fashion. Safety timeout was performed and the patient and procedure correctly identified. Local anesthesia was used to anesthetize the area surrounding the PermCath. Suture scissors were used to remove 3 existing sutures. Blunt dissection was used to free up the fibrous cuff. A fibrous sheath surrounding the cuff was incised with an 11 blade scalpel. The PermCath was removed without difficulty and manual pressure was held for approximately 5 minutes with good hemostasis. The patient tolerated the procedure well and there were no immediate complications. Dr. Ernesto Bellamy was present for the entire procedure. I, Dr. Bellamy was present and scrubed for the entire procedure. [facility]
== END 2017-04-14 10:55 | disposition home or self-care (01) ==
LOC: C.ACU 07:58
PROVIDERS: ATTEND Surgery Vascular Surgery
DX: Z45.2 Encounter for adjustment and management of vascular access device (principal); N18.6 End stage renal disease; E11.9 Type 2 diabetes mellitus without complications; I12.0 Hypertensive chronic kidney disease with stage 5 chronic kidney disease or end stage renal disease; Z86.73 Personal history of transient ischemic attack (TIA), and cerebral infarction without residual deficits

== ENCOUNTER 2017-12-16 08:35 | Inpatient (IN) | payer OTHER, BC ==
[~2017-12-16] VITALS: Ht 177.8 cm; Wt 76.3 kg
[~2017-12-16 08:35] MED LIST changes: +CALC667C4 PO; -OXYC-57 PO
[2017-12-16] MEDS ORDERED: VTMD1000 PO (09:08)
[2017-12-16] MEDS ORDERED: MULT-188 PO (09:08)
--- NOTE | 2017-12-16 09:12 | EMERGENCY ROOM VISIT NOTE ---
History Report prepared by Mayte: Baylee Paris Under the Supervision of: Dr. Holly Calix M.D. First contact with patient: 08:46 Chief Complaint: WEAKNESS Stated Complaint: INCREASED WEAKNESS/ TROUBLE AMBULATING Nursing Triage Summary: Bilateral leg weakness. 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 Pt states that he has been having trouble walking for "a long time" but it was worse this morning. He was unable to ambulate and had to have his help him. He states that his right leg is always weaker due to a previous stroke from 5 months ago. He has been eating and drinking normally. Pt takes Coumadin. He denies fever, headache, shortness of breath, and any recent trauma/fall/injury. The patient was brought to the ED by ambulance. He gets dialysis Tues/Thurs/Sat and is scheduled to have dialysis later today. 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 A total of 10 systems reviewed and were otherwise negative. Past Medical & Surgical Medical Problems: (1) CVA (cerebral vascular accident) (2) Diabetes mellitus (3) ESRD on hemodialysis (4) HTN (hypertension) (5) T wave inversion in EKG Family History Diabetes mellitus Hypertension Social History Smoking Status: Former Smoker Alcohol Use: none Marital Status: Housing Status: lives with significant other Occupation Status: retired Current/Historical Medications Scheduled Aspirin (Aspirin Ec), 325 MG PO QAM Atorvastatin (Lipitor), 10 MG PO QAM B-Complex W/ C & Folic Acid (Marilee-Vince), 1 TAB PO QPM Calcium Acetate (Phoslo 667 Mg), 1 CAP PO TID Carvedilol (Coreg), 6.25 MG PO HS Cholecalciferol (Vitamin D3), 1,000 UNITS PO DAILY Clopidogrel (Plavix), 75 MG PO QAM Multiple Vitamins W/ Minerals (Ocuvite), 1 TAB PO DAILY Sitagliptin (Januvia), 25 MG PO QAM Allergies Coded Allergies: Adhesives (Verified Allergy, Mild, ITCHY SKIN WITH TAPE, 12/16/17) Penicillins (Verified Allergy, Mild, rash, 12/16/17) Physical Exam Vital Signs Date Time Temp Pulse Resp B/P (MAP) Pulse Ox O2 Delivery O2 Flow Rate FiO2 12/16/17 13:14 94 12/16/17 13:05 89 18 122/75 97 Room Air 12/16/17 09:42 84 16 131/52 98 Room Air 12/16/17 08:59 87 12/16/17 08:49 Room Air 12/16/17 08:37 37.1 90 17 147/82 97 Room Air Physical Exam Vital signs reviewed. General: Chronically ill-appearing 82 year old male, in no significant distress. HEENT: No scleral icterus, PERRLA, neck supple. Atraumatic. Cardiovascular: Regular rate and rhythm, no extra sounds. Pulmonary: Clear to auscultation bilaterally, normal work of breathing. Abdomen: Soft, nontender, nondistended, positive bowel sounds. Musculoskeletal: Atraumatic, no peripheral edema. Fistula to the RUE. Neurologic: Patient awake alert and oriented x 3. Cranial nerves 2 through 12 grossly intact. 3/5 strength to the right upper and lower extremities, 5/5 to the left upper and lower extremities. Skin: Warm, dry, no rash Medical Decision & Procedures ER Provider Diagnostic Interpretation: Radiology results as stated below per my review and radiologist interpretation: CT SCAN OF THE BRAIN WITHOUT IV CONTRAST CLINICAL HISTORY: Generalized weakness. COMPARISON STUDY: CT of the brain dated 01/30/2017. TECHNIQUE: Unenhanced axial CT scan of the brain is performed from the vertex to the skull base. A dose lowering technique was utilized adhering to the principles of ALARA. CT DOSE: 1363.67 mGy.cm FINDINGS: Brain parenchyma: There are age-related involutional changes noting moderate to advanced confluent subcortical and periventricular microangiopathic change. Right occipital encephalomalacia is consistent with a remote infarct. A chronic lacunar infarct is seen in the left caudate head. There is no hemorrhage, mass effect, or evidence of acute territorial ischemia by CT criteria. Gibbons-white matter is preserved. No extra-axial fluid collection is seen. Ventricles, sulci, cisterns: Prominent secondary to involutional change. Intracranial vasculature: There is atherosclerotic calcification of the cavernous carotid and vertebral arteries. Calvarium: Unremarkable. Sinuses and mastoids: The visualized paranasal sinuses are clear. The mastoid air cells are well pneumatized. Orbits: The bony orbits are grossly intact. There is a left ocular lens implant. IMPRESSION: Senescent changes and remote infarcts as above. There is no hemorrhage, mass effect, or evidence of acute territorial ischemia by CT criteria. Electronically signed by: Rommel Posada M.D. 12/16/2017 9:31 AM Dictated Date/Time: 12/16/2017 9:29 AM CHEST ONE VIEW PORTABLE CLINICAL HISTORY: WEAKNESS dyspnea COMPARISON STUDY: 01/30/2017 FINDINGS: The bones soft tissues and hemidiaphragms are normal. The cardiomediastinal silhouette is normal. The lungs are clear. The pulmonary vasculature is normal. IMPRESSION: Negative chest. Interval removal of the central catheter The above report was generated using voice recognition software. It may contain grammatical, syntax or spelling errors. Electronically signed by: Salvador Evans M.D. 12/16/2017 9:41 AM Dictated Date/Time: 12/16/2017 9:41 AM Laboratory Results 12/16/17 09:05 Red Blood Count 3.30, Mean Corpuscular Volume 99.4, Mean Corpuscular Hemoglobin 33.9, Mean Corpuscular Hemoglobin Concent 34.1, Mean Platelet Volume 10.0, Neutrophils (%) (Auto) 73.2, Lymphocytes (%) (Auto) 11.5, Monocytes (%) (Auto) 12.1, Eosinophils (%) (Auto) 2.7, Basophils (%) (Auto) 0.1, Neutrophils # (Auto ) 5.45, Lymphocytes # (Auto) 0.86, Monocytes # (Auto) 0.90, Eosinophils # (Auto ) 0.20, Basophils # (Auto) 0.01 12/16/17 09:05 Test 12/16/17 09:05 12/16/17 09:19 12/16/17 09:20 White Blood Count 7.45 K/uL (4.8-10.8) Red Blood Count 3.30 M/uL (4.7-6.1) Hemoglobin 11.2 g/dL (14.0-18.0) Hematocrit 32.8 % (42-52) Mean Corpuscular Volume 99.4 fL (80-100) Mean Corpuscular Hemoglobin 33.9 pg (25-34) Mean Corpuscular Hemoglobin Concent 34.1 g/dl (32-36) Platelet Count 182 K/uL (130-400) Mean Platelet Volume 10.0 fL (7.4-10.4) Neutrophils (%) (Auto) 73.2 % Lymphocytes (%) (Auto) 11.5 % Monocytes (%) (Auto) 12.1 % Eosinophils (%) (Auto) 2.7 % Basophils (%) (Auto) 0.1 % Neutrophils # (Auto) 5.45 K/uL (1.4-6.5) Lymphocytes # (Auto) 0.86 K/uL (1.2-3.4) Monocytes # (Auto) 0.90 K/uL (0.11-0.59) Eosinophils # (Auto) 0.20 K/uL (0-0.5) Basophils # (Auto) 0.01 K/uL (0-0.2) RDW Standard Deviation 49.6 fL (36.4-46.3) RDW Coefficient of Variation 13.8 % (11.5-14.5) Immature Granulocyte % (Auto) 0.4 % Immature Granulocyte # (Auto) 0.03 K/uL (0.00-0.02) Prothrombin Time 10.2 SECONDS (9.0-12.0) Prothromb Time International Ratio 1.0 (0.9-1.1) Activated Partial Thromboplast Time 24.7 SECONDS (21.0-31.0) Partial Thromboplastin Ratio 1.0 Est Creatinine Clear Calc Drug Dose 8.3 ml/min Estimated GFR () 7.7 Estimated GFR (Non- 6.6 BUN/Creatinine Ratio 3.9 (10-20) Calcium Level 9.0 mg/dl (8.5-10.1) Magnesium Level 2.3 mg/dl (1.8-2.4) Total Bilirubin 0.7 mg/dl (0.2-1) Direct Bilirubin 0.1 mg/dl (0-0.2) Aspartate Amino Transf (AST/SGOT) 20 U/L (15-37) Alanine Aminotransferase (ALT/SGPT) 27 U/L (12-78) Alkaline Phosphatase 88 U/L (45-117) Total Creatine Kinase 138 U/L (39-308) Creatine Kinase MB 0.8 ng/ml (0.5-3.6) Creatine Kinase MB Ratio 0.6 (0-3.0) Total Protein 7.2 gm/dl (6.4-8.2) Albumin 3.7 gm/dl (3.4-5.0) Bedside Hemoglobin 10.5 g/dl (14.0-18.0) Bedside Hematocrit 31 % (42-52) Bedside Sodium 140 mEq/L (135-144) Bedside Potassium 4.2 mEq/L (3.3-5.0) Bedside Chloride 96 mEq/L (101-112) Bedside Total CO2 28 mEq/l (24-31) Anion Gap 21.0 mmol/L (16-25) Bedside Blood Urea Nitrogen 28 mg/dl (7-18) Bedside Creatinine 7.1 mg/dl (0.6-1.3) Bedside Glucose (other) 227 mg/dl (70-99) Bedside Ionized Calcium (Stalin) 1.14 mmol/l (1.12-1.32) Bedside Troponin I < 0.030 ng/ml (0-0.045) Laboratory results per my review. ECG Indication: weakness Rate (beats per minute): 88 Rhythm: sinus rhythm Findings: PVC, RBBB, no acute ischemic change, left axis deviation Change: Patient's electrocardiogram interpreted by me. ED Course 0852: Past medical records reviewed. The patient was evaluated in room B6. A complete history and physical examination was performed. 1159: Pt given ambulatory trial. 1221: Pt failed ambulatory trial. 1454: I reassessed the patient at this time. He is feeling better and resting comfortably. I discussed the results and treatment plan with the patient. I answered all pertaining questions that he had. He expressed understanding and verbalized agreement. 1500: The patient was signed out at the change of shift. [facility] is evaluating the patient for further management. Medical Decision Differential diagnosis: Etiologies such as metabolic, infection, hypo/hyperglycemia, electrolyte abnormalities, cardiac sources, intracerebral event, toxicologic, neurologic, as well as others were entertained. This patient was evaluated and appeared to be in no significant distress. Physical examination reveals a chronically ill man with chronic right-sided weakness. Patient seems to be neurologically intact and mentating appropriately. His evaluation is negative for acute findings. Patient is unable to ambulate with nursing assistance 3 attempts. Patient and family do not for comfortable with outpatient management. Case management was consulted and a referral to [facility] has been made. Given the patient's need for dialysis, they are reviewing their capabilities. The patient is currently eating a dinner tray and feeling well. Case has been signed out to Dr. Nuñez at the change of shift, pending disposition. Medication Reconcilliation Current Medication List: was personally reviewed by me Blood Pressure Screening Patient's blood pressure: Normal blood pressure Impression Primary Impression: Generalized weakness Additional Impressions: Ambulatory dysfunction History of stroke Scribe Attestation The scribe's documentation has been prepared under my direction and personally reviewed by me in its entirety. I confirm that the note above accurately reflects all work, treatment, procedures, and medical decision making performed by me. Departure Information Dispostion Still a Patient Referrals Johnson Balderas PA-C (PCP) Patient Instructions My [facility] Problem Qualifiers
[2017-12-16 09:26] LABS: BASO % 0.1 %; BASO ABS # 0.01 K/uL (0-0.2); EOS % 2.7 %; HEMATOCRIT 32.8 % (42-52); HEMOGLOBIN 11.2 g/dL (14.0-18.0); IG# 0.03 K/uL (0.00-0.02); LYMPH % 11.5 %; LYMPH ABS # 0.86 K/uL (1.2-3.4); MEAN CELL VOLUME 99.4 fL (80-100); MEAN CORPUSCULAR HEMOGLOBIN 33.9 pg (25-34); MEAN CORPUSCULAR HGB CONC 34.1 g/dl (32-36); MONO % 12.1 %; NEUT % 73.2 %; NEUT ABS # 5.45 K/uL (1.4-6.5); PLATELET COUNT 182 K/uL (130-400); RED CELL DISTRIBUTION WIDTH CV 13.8 % (11.5-14.5); RED CELL DISTRIBUTION WIDTH SD 49.6 fL (36.4-46.3); WHITE BLOOD COUNT 7.45 K/uL (4.8-10.8)
--- NOTE | 2017-12-16 09:32 | DIAGNOSTIC IMAGING REPORT ---
CT SCAN OF THE BRAIN WITHOUT IV CONTRAST CLINICAL HISTORY: Generalized weakness. COMPARISON STUDY: CT of the brain dated 01/30/2017. TECHNIQUE: Unenhanced axial CT scan of the brain is performed from the vertex to the skull base. A dose lowering technique was utilized adhering to the principles of ALARA. CT DOSE: 1363.67 mGy.cm FINDINGS: Brain parenchyma: There are age-related involutional changes noting moderate to advanced confluent subcortical and periventricular microangiopathic change. Right occipital encephalomalacia is consistent with a remote infarct. A chronic lacunar infarct is seen in the left caudate head. There is no hemorrhage, mass effect, or evidence of acute territorial ischemia by CT criteria. Gibbons-white matter is preserved. No extra-axial fluid collection is seen. Ventricles, sulci, cisterns: Prominent secondary to involutional change. Intracranial vasculature: There is atherosclerotic calcification of the cavernous carotid and vertebral arteries. Calvarium: Unremarkable. Sinuses and mastoids: The visualized paranasal sinuses are clear. The mastoid air cells are well pneumatized. Orbits: The bony orbits are grossly intact. There is a left ocular lens implant. IMPRESSION: Senescent changes and remote infarcts as above. There is no hemorrhage, mass effect, or evidence of acute territorial ischemia by CT criteria. Electronically signed by: Rommel Posada M.D. 12/16/2017 9:31 AM Dictated Date/Time: 12/16/2017 9:29 AM
[2017-12-16 09:33] LABS: ISTAT CREATININE 7.1 mg/dl (0.6-1.3); ISTAT IONIZED CALCIUM 1.14 mmol/l (1.12-1.32); ISTAT POTASSIUM 4.2 mEq/L (3.3-5.0)
[2017-12-16 09:35] LABS: PTT PATIENT 24.7 SECONDS (21.0-31.0)
--- NOTE | 2017-12-16 09:43 | DIAGNOSTIC IMAGING REPORT ---
CHEST ONE VIEW PORTABLE CLINICAL HISTORY: WEAKNESS dyspnea COMPARISON STUDY: 01/30/2017 FINDINGS: The bones soft tissues and hemidiaphragms are normal. The cardiomediastinal silhouette is normal. The lungs are clear. The pulmonary vasculature is normal. IMPRESSION: Negative chest. Interval removal of the central catheter The above report was generated using voice recognition software. It may contain grammatical, syntax or spelling errors. Electronically signed by: Salvador Evans M.D. 12/16/2017 9:41 AM Dictated Date/Time: 12/16/2017 9:41 AM
[2017-12-16 10:03] LABS: ALBUMIN 3.7 gm/dl (3.4-5.0); CKMB 0.8 ng/ml (0.5-3.6); CREATININE 6.95 mg/dl (0.60-1.40); POTASSIUM 4.1 mmol/L (3.5-5.1); TOTAL PROTEIN 7.2 gm/dl (6.4-8.2)
--- NOTE | 2017-12-16 17:30 | EMERGENCY ROOM VISIT NOTE ---
ED Visit Note First contact with patient: 16:36 I assumed care at the change of shift. The [facility] team was evaluating the patient for a possible transfer to their facility for rehabilitation. At this point, the patient will require a hospital stay overnight. He may be able to go to [facility] tomorrow after dialysis. I did contact the on-call hospitalist. Case management has been involved. The patient is aware of the need to stay in our facility overnight.
[2017-12-16] MEDS ORDERED: GLUCOSE 40% GEL 15 GM TUBE PO PRN (18:00)
[2017-12-16] MEDS ORDERED: MAGNESIUM HYDROXIDE SUSP 30 ML UDC PO PRN (18:00)
[2017-12-16] MEDS ORDERED: DEXTROSE 50% 50 ML SYR IV PRN (18:00)
[2017-12-16] MEDS ORDERED: ONDANSETRON INJ 2 MG/ML 2 ML VIAL IV PRN (18:00)
[2017-12-16] MEDS ORDERED: GLUCAGON FOR INJ 1 MG VIAL SQ PRN (18:00)
[2017-12-16] MEDS ORDERED: POLYETHYLENE (MIRALAX) 17 GM PACK PO PRN (18:00)
[2017-12-16] MEDS ORDERED: ACETAMINOPHEN 325 MG TAB PO PRN (18:00)
[2017-12-16] MEDS ORDERED: ALUMINUM/MAGNESIUM/SIMETH (MAALOX MAX) 30 ML UDC PO PRN (18:00)
[2017-12-16] MEDS ORDERED: GLUCOSE 10 TABS/TUBE PO PRN (18:00)
--- NOTE | 2017-12-16 18:33 | History and Physical ---
History & Physical Date & Time of Service: Dec 16, 2017 at 18:10 Chief Complaint: Increased Weakness/ Trouble Ambulating Primary Care Physician: Johnson Balderas PA-C History of Present Illness Source: patient Mr. Montesinos is an 82 y/o male with PMHx of CVA (2012) with R Residual Deficits, ESRD on HD, HTN, and T2DM who presents to the ED for ambulatory dysfunction starting today. Patient has long standing ambulatory dysfunction mostly since his CVA. He states he utilizes a cane for ambulation. He states he was his normal self yesterday and was ambulating at baseline. He said this morning he noticed b/l lower extremity weakness but does note that his R side is always a little worse given his previous CVA. He felt weak today and was not able to bear weight on his legs. He needed his to help him today. He states he has been feeling well and denies recent illness. He initially stated that he was having some difficulty findings his words earlier today but then later on said he didn't. He denies any recent falls or trauma. He was due for dialysis today but missed this due to coming to the ED. He reports that he did go on Friday without any issues. Per ED note it states he is on blood thinners , patient responded "I think so" but couldn't verify as he is on Plavix and ASA and his coags would suggest that he is not on any AC. Patient is laying in bed and moving all extremities but some limitations with RUE. Generally weaker on the right side but has good strength. Rapid alternating movements limited due to RUE. He was ambulated in ED but failed trial. He denies back pain, saddle paresthesias, or loss of bowel/bladder. A referral was placed to [facility] but still awaiting acceptance. Past Medical/Surgical History Medical Problems: (1) CVA (cerebral vascular accident) Status: Chronic (2) Diabetes mellitus Status: Chronic (3) HTN (hypertension) Status: Chronic Family History Diabetes mellitus Hypertension Social History Smoking Status: Former Smoker Smokeless Tobacco Use: No Alcohol Use: none Drug Use: none Marital Status: Housing status: lives with significant other Occupational Status: retired Immunizations History of Influenza Vaccine: Yes Influenza Vaccine Date: Aug 16, 2013 History of Tetanus Vaccine?: Unknown History of Pneumococcal: Yes History of Hepatitis B Vaccine: Unknown Allergies Coded Allergies: Adhesives (Verified Allergy, Mild, ITCHY SKIN WITH TAPE, 12/16/17) Penicillins (Verified Allergy, Mild, rash, 12/16/17) Home Medications Scheduled Aspirin (Aspirin Ec), 325 MG PO QAM Atorvastatin (Lipitor), 10 MG PO QAM B-Complex W/ C & Folic Acid (Marilee-Vince), 1 TAB PO QPM Calcium Acetate (Phoslo 667 Mg), 1 CAP PO TID Carvedilol (Coreg), 6.25 MG PO HS Cholecalciferol (Vitamin D3), 1,000 UNITS PO DAILY Clopidogrel (Plavix), 75 MG PO QAM Multiple Vitamins W/ Minerals (Ocuvite), 1 TAB PO DAILY Sitagliptin (Januvia), 25 MG PO QAM Review of Systems General/Constitutional: + generalized lower extremity weakness; Denies fever/ chills ENT: Denies acute visual changes, nasal drainage, sore throat, trouble swallowing Cardiovascular: Denies chest pain, palpitations, edema Respiratory: Denies cough, sputum, SOB, wheezing, orthopnea GI: Denies nausea, vomiting, abdominal pain, constipation, diarrhea, melena/ hematochezia : Denies dysuria Musculoskeletal: Denies joint/muscle aches Neurologic: + B/L lower extremity weakness with R > L; Denies dizziness/ lightheadedness, numbness/tingling Hematologic/Lymphatic: Denies bleeding/clotting abnormalities Skin: Denies rash Physical Exam Vital Signs Date Time Temp Pulse Resp B/P (MAP) Pulse Ox O2 Delivery O2 Flow Rate FiO2 12/16/17 17:30 85 18 131/57 95 Room Air 12/16/17 17:18 85 12/16/17 17:00 86 14 133/54 96 Room Air 12/16/17 16:31 114/ 12/16/17 16:30 87 10 12/16/17 16:00 87 16 128/54 96 Room Air 12/16/17 15:35 87 20 12/16/17 15:30 121/52 12/16/17 15:05 86 20 12/16/17 15:00 89 20 128/74 12/16/17 14:30 88 16 112/47 12/16/17 14:00 91 19 125/58 12/16/17 13:30 88 16 116/56 96 12/16/17 13:14 94 12/16/17 13:05 89 18 122/75 97 Room Air 12/16/17 09:42 84 16 131/52 98 Room Air 12/16/17 08:59 87 12/16/17 08:49 Room Air 12/16/17 08:37 37.1 90 17 147/82 97 Room Air General Appearance: WDWN in NAD who is A&O x 3 HEENT: Head is normocephalic/atraumatic; EOMI; PERRLA; + mild [place]; Mucous membranes moist; Pharynx negative for exudate/lesions Neck: Supple; Trachea midline; Neg JVD Heart: RRR with no M/G/R Lungs: CTA in all lung lopez bilaterally; Respirations unlabored; Neg accessory muscle use Abdomen: Soft, non-tender, non-distended; Positive BS x 4 quadrants Extremities: Capillary refill < 2 seconds; Neg cyanosis or edema Neurological: Speech clear but mild slowing of response; good strength diffusely however R weaker than L to hand grasp, flexion/extension of elbow, dorsiflexion/plantarflexion, and hip flexion; difficulty with rapid alternating movements due to R residual weakness Psychiatric: Flat affect Skin: Normal Color; Warm/Dry Diagnostics Laboratory Results Results Past 24 Hours Test 12/16/17 09:05 12/16/17 09:19 12/16/17 09:20 12/16/17 18:07 Range/Units White Blood Count 7.45 4.8-10.8 K/uL Red Blood Count 3.30 4.7-6.1 M/uL Hemoglobin 11.2 14.0-18.0 g/dL Hematocrit 32.8 42-52 % Mean Corpuscular Volume 99.4 80-100 fL Mean Corpuscular Hemoglobin 33.9 25-34 pg Mean Corpuscular Hemoglobin Concent 34.1 32-36 g/dl Platelet Count 182 130-400 K/uL Mean Platelet Volume 10.0 7.4-10.4 fL Neutrophils (%) (Auto) 73.2 % Lymphocytes (%) (Auto) 11.5 % Monocytes (%) (Auto) 12.1 % Eosinophils (%) (Auto) 2.7 % Basophils (%) (Auto) 0.1 % Neutrophils # (Auto) 5.45 1.4-6.5 K/uL Lymphocytes # (Auto) 0.86 1.2-3.4 K/uL Monocytes # (Auto) 0.90 0.11-0.59 K/uL Eosinophils # (Auto) 0.20 0-0.5 K/uL Basophils # (Auto) 0.01 0-0.2 K/uL RDW Standard Deviation 49.6 36.4-46.3 fL RDW Coefficient of Variation 13.8 11.5-14.5 % Immature Granulocyte % (Auto) 0.4 % Immature Granulocyte # (Auto) 0.03 0.00-0.02 K/uL Prothrombin Time 10.2 9.0-12.0 SECONDS Prothromb Time International Ratio 1.0 0.9-1.1 Activated Partial Thromboplast Time 24.7 21.0-31.0 SECONDS Partial Thromboplastin Ratio 1.0 Sodium Level 136 136-145 mmol/L Potassium Level 4.1 3.5-5.1 mmol/L Chloride Level 99 98-107 mmol/L Carbon Dioxide Level 27 21-32 mmol/L Anion Gap 10.0 21.0 16-25 mmol/L Blood Urea Nitrogen 28 7-18 mg/dl Creatinine 6.95 0.60-1.40 mg/dl Est Creatinine Clear Calc Drug Dose 8.3 ml/min Estimated GFR () 7.7 Estimated GFR (Non- 6.6 BUN/Creatinine Ratio 3.9 10-20 Random Glucose 216 70-99 mg/dl Calcium Level 9.0 8.5-10.1 mg/dl Magnesium Level 2.3 1.8-2.4 mg/dl Total Bilirubin 0.7 0.2-1 mg/dl Direct Bilirubin 0.1 0-0.2 mg/dl Aspartate Amino Transf (AST/SGOT) 20 15-37 U/L Alanine Aminotransferase (ALT/SGPT) 27 12-78 U/L Alkaline Phosphatase 88 45-117 U/L Total Creatine Kinase 138 39-308 U/L Creatine Kinase MB 0.8 0.5-3.6 ng/ml Creatine Kinase MB Ratio 0.6 0-3.0 Total Protein 7.2 6.4-8.2 gm/dl Albumin 3.7 3.4-5.0 gm/dl Bedside Hemoglobin 10.5 14.0-18.0 g/dl Bedside Hematocrit 31 42-52 % Bedside Sodium 140 135-144 mEq/L Bedside Potassium 4.2 3.3-5.0 mEq/L Bedside Chloride 96 101-112 mEq/L Bedside Total CO2 28 24-31 mEq/l Bedside Blood Urea Nitrogen 28 7-18 mg/dl Bedside Creatinine 7.1 0.6-1.3 mg/dl Bedside Glucose (other) 227 70-99 mg/dl Bedside Ionized Calcium (Stalin) 1.14 1.12-1.32 mmol/l Bedside Troponin I < 0.030 0-0.045 ng/ml Diagnostic Radiology CT SCAN OF THE BRAIN WITHOUT IV CONTRAST FINDINGS: Brain parenchyma: There are age-related involutional changes noting moderate to advanced confluent subcortical and periventricular microangiopathic change. Right occipital encephalomalacia is consistent with a remote infarct. A chronic lacunar infarct is seen in the left caudate head. There is no hemorrhage, mass effect, or evidence of acute territorial ischemia by CT criteria. Gibbons-white matter is preserved. No extra-axial fluid collection is seen. Ventricles, sulci, cisterns: Prominent secondary to involutional change. Intracranial vasculature: There is atherosclerotic calcification of the cavernous carotid and vertebral arteries. Calvarium: Unremarkable. Sinuses and mastoids: The visualized paranasal sinuses are clear. The mastoid air cells are well pneumatized. Orbits: The bony orbits are grossly intact. There is a left ocular lens implant. IMPRESSION: Senescent changes and remote infarcts as above. There is no hemorrhage, mass effect, or evidence of acute territorial ischemia by CT criteria. CHEST ONE VIEW PORTABLE FINDINGS: The bones soft tissues and hemidiaphragms are normal. The cardiomediastinal silhouette is normal. The lungs are clear. The pulmonary vasculature is normal. IMPRESSION: Negative chest. Interval removal of the central catheter EKG Sinus rhythm with occasional Premature ventricular complexes Left axis deviation Right bundle branch block Abnormal ECG When compared with ECG of 21-FEB-2017 10:47, Premature ventricular complexes are now Present QRS voltage has decreased T wave inversion no longer evident in Anterolateral leads Confirmed by NICKI MAGDALENO ([id number]) on 12/16/2017 2:21:34 PM Impression Assessment and Plan Mr. Montesinos is an 82 y/o male with PMHx of CVA (2012) with R Residual Deficits, ESRD on HD, HTN, and T2DM who presents to the ED for ambulatory dysfunction starting today. Ambulatory Dysfunction with Chronic R Sided Weakness from Previous CVA: - Failed ambulatory trial in ED and referral placed to [facility] and awaiting approval - Will obtain MRI given stroke history and possible word finding isssues - Obtain ESR, CRP, and TSH - Await urinalysis to assess for infectious cause - however is afebrile and without leukocytosis ESRD on HD: T, Th, Sat - Missed todays dialysis however electrolytes acceptable and no emergent need for dialysis at this time - Continue Phoslo - Consult nephrology - appreciate assistance H/O CVA: - ASA 325 mg daily and Plavix 75 mg daily - Atorvastatin 10 mg daily HTN: - Coreg 6.25 mg HS T2DM: - Januvia 25 mg daily and SSI as necessary DVT Prophylaxis: SCDs Code Status: FULL RESUSCITATION Disposition: - Referral to [facility] - will order PT/OT evaluations and health social work professor consult Level of Care Med/Surg Resuscitation Status FULL RESUSCITATION VTE Prophylaxis VTE Risk Assessment Done? Y/N: Yes Risk Level: Moderate Given or contraindicated: SCD's
[2017-12-16 19:20] VITALS: BP 135/83; PULSE 80; TEMP 37.3; O2SAT 98; Ht 177.8 cm; Wt 76.3 kg
[2017-12-16] MEDS ORDERED: IV FLUIDS COMPLETED PRN (21:45)
[2017-12-16] MEDS: INSULIN ASPART 100 UNITS/ML 3 ML PEN SC SCH ×2 (22:00→22:15)
[2017-12-16] MEDS: CARVEDILOL 6.25 MG TAB PO SCH ×2 (22:00→22:16)
[2017-12-16 23:13] VITALS: BP 135/45; PULSE 85; TEMP 37.6; O2SAT 97
--- NOTE | 2017-12-16 23:23 | DIAGNOSTIC IMAGING REPORT ---
BRAIN WITHOUT CONTRAST HISTORY: 82 years-old Male Ambulatory Dysfunction acute confusion with difficulty walking. History of remote stroke. COMPARISON: MRI the brain 01/31/2017, CT head 12/16/2017 TECHNIQUE: Multiplanar multisequence MRI the brain was obtained without contrast FINDINGS: There is no restricted diffusion to suggest acute infarction. There is a least moderate generalized brain atrophy with ex vacuo ventriculomegaly. Moderate to extensive foci of increased T2/FLAIR signal seen within the subcortical, deep and periventricular white matter of the phalanges bilaterally compatible with chronic microvascular ischemic changes. Several sequences are at least moderately motion degraded. There is no acute intracranial hemorrhage, midline shift, abnormal extra-axial collections or hydrocephalus. Encephalomalacia and gliosis is again seen associated with remote right occipital lobe infarction. Multiple remote lacunar infarctions are again noted as well. For example, there is a remote lacunar infarction of the left caudate nucleus and left parson radiata. Major flow voids at the level of the skull base appear patent. Mastoid air cells are generally clear. Moderate ethmoid sinus disease. Prior left-sided cataract repair. Calvarium, scalp and soft tissues are unremarkable. IMPRESSION: 1. No acute intracranial abnormality. Negative for acute infarction. 2. Atrophy with chronic microvascular ischemic changes. 3. Encephalomalacia and gliosis associated with remote right occipital lobe infarction. Remote lacunar infarctions are again seen within the left caudate head and left parson radiata. The above report was generated using voice recognition software. It may contain grammatical, syntax or spelling errors. Electronically signed by: Christ Flannery M.D. 12/16/2017 11:22 PM Dictated Date/Time: 12/16/2017 11:16 PM
[2017-12-17 06:13] LABS: HEMATOCRIT 28.6 % (42-52); HEMOGLOBIN 9.6 g/dL (14.0-18.0); MEAN CELL VOLUME 99.7 fL (80-100); MEAN CORPUSCULAR HEMOGLOBIN 33.4 pg (25-34); MEAN CORPUSCULAR HGB CONC 33.6 g/dl (32-36); PLATELET COUNT 157 K/uL (130-400); RED CELL DISTRIBUTION WIDTH SD 50.5 fL (36.4-46.3); WHITE BLOOD COUNT 6.66 K/uL (4.8-10.8)
[2017-12-17] MEDS: INSULIN ASPART 100 UNITS/ML 3 ML PEN SC SCH ×4 (06:30→21:47)
[2017-12-17 06:50] VITALS: BP 109/45; PULSE 75; TEMP 37.2; O2SAT 96
[2017-12-17 06:58] LABS: CALCIUM 8.7 mg/dl (8.5-10.1); CREATININE 7.86 mg/dl (0.60-1.40)
[2017-12-17] MEDS: CLOPIDOGREL BISULFATE 75 MG TAB PO SCH (07:48)
[2017-12-17] MEDS: CALCIUM ACETATE 667MG GELCAP PO SCH ×3 (07:49→16:50)
[2017-12-17] MEDS: ASPIRIN 325 MG ECTAB PO SCH (07:49)
[2017-12-17] MEDS: SITAGLIPTIN 25 MG TAB PO SCH (07:49)
[2017-12-17] MEDS: ATORVASTATIN 10 MG TAB PO SCH (07:49)
[2017-12-17] MEDS: CEROVITE ADV FORMULA TAB PO SCH (07:49)
--- NOTE | 2017-12-17 09:34 | Nephrology Consultation ---
Nephrology Consultation Date & Providers Date of Consultation: Dec 17, 2017. Primary Care Provider: Johnson Balderas PA-C Referring Provider: Reason for Consultation ESRD on IHD History of Present Illness Mr. Montesinos is an 82 year old white male who is seen at the request of Dr. Butler to provide inpatient HD. The patient was able to provide only a few details of his medical history. The majority was obtained from the medical record and is summarized as follows: Mr. Montesinos has ESRD and dialyzes TTS at the [facility] dialysis unit. His Police Specialist is Dr. Lu. He has been on HD since 12/27 and currently has a functional right upper arm AVF. Mr. Montesinos's medical history is significant for HTN, AODM, h/o CVA and legal blindness. Yesterday he began to experience weakness and difficulty ambulating. He missed his outpatient dialysis treatment and was brought to the ED for evaluation. Mr. Montesinos was found to have a low grade fever. WBC# was normal. CXR was negative for infiltrate. Head CT was negative for acute CVA. Mr. Montesinos has been admitted for ongoing monitoring and medical management. Once stable he may transfer to [facility] for physical therapy. Past Medical/Surgical History Medical: # ESRD on HD TTS at [facility] (Dr. Lu) # HTN # AODM # Hyperlipidemia # h/o CVA # Legal blindness Surgical: # h/o IJ THC # R upper arm AVF Allergies Coded Allergies: Adhesives (Verified Allergy, Mild, ITCHY SKIN WITH TAPE, 12/16/17) Penicillins (Verified Allergy, Mild, rash, 12/16/17) Inpatient Medications Current Inpatient Medications Medications (Trade) Dose Ordered Sig/Don Route Start Time Stop Time Status Last Admin Dose Admin Acetaminophen (Tylenol Tab) 650 mg Q4H PRN PO 12/16/17 18:00 01/15/18 17:59 Al Hydrox/Mg Hydrox/Simethicone (Maalox Max Susp) 15 ml Q4H PRN PO 12/16/17 18:00 01/15/18 17:59 Magnesium Hydroxide (Milk Of Magnesia Susp) 30 ml Q6H PRN PO 12/16/17 18:00 01/15/18 17:59 Polyethylene (Miralax Powder Packet) 17 gm DAILY PRN PO 12/16/17 18:00 01/15/18 17:59 Ondansetron HCl (Zofran Inj) 4 mg Q6H PRN IV 12/16/17 18:00 01/15/18 17:59 Insulin Aspart (novoLOG ASPART) SLIDING SCALE If C... ACHS SC 12/16/17 21:00 01/15/18 20:59 Glucose (Glucose 40% Gel) 15-30 GRAMS 15 GRAMS... UD PRN PO 12/16/17 18:00 01/15/18 17:59 Glucose (Glucose Chew Tab) 4-8 Tablets 4 Tabl... UD PRN PO 12/16/17 18:00 01/15/18 17:59 Dextrose (Dextrose 50% 50ML Syringe) 25-50ML OF 50% DW IV FOR... UD PRN IV 12/16/17 18:00 01/15/18 17:59 Glucagon (Glucagon Inj) 1 mg UD PRN SQ 12/16/17 18:00 01/15/18 17:59 Aspirin (Ecotrin Tab) 325 mg QAM PO 12/17/17 08:00 01/16/18 08:59 12/17/17 07:49 325 MG Atorvastatin Calcium (Lipitor Tab) 10 mg QAM PO 12/17/17 08:00 01/16/18 08:59 12/17/17 07:49 10 MG Calcium Acetate (Phoslo Cap) 667 mg TIDM PO 12/17/17 08:00 01/16/18 07:59 12/17/17 07:49 667 MG Carvedilol (Coreg Tab) 6.25 mg HS PO 12/16/17 21:00 01/15/18 20:59 12/16/17 22:16 6.25 MG Clopidogrel Bisulfate (plAVix TAB) 75 mg QAM PO 12/17/17 08:00 01/16/18 08:59 12/17/17 07:48 75 MG Multivitamins/ Minerals (Multivitamin W/ Minerals Tab) 1 tab DAILY PO 12/17/17 08:00 01/16/18 08:59 12/17/17 07:49 1 TAB Sitagliptin Phosphate (Januvia Tab) 25 mg QAM PO 12/17/17 08:00 01/16/18 08:59 12/17/17 07:49 25 MG Miscellaneous (Iv Fluids Completed) 1 ea PRN PRN N/A 12/16/17 21:45 12/16/18 21:44 Family History Diabetes mellitus Hypertension Negative for CKD/ESRD Social History Smoking Status: Former Smoker Smokeless Tobacco Use: No Alcohol Use: none Drug Use: none Marital Status: Housing Status: lives with significant other Occupation: retired . Retired. Formerly worked at "[employer]". Lives in [place]. Former smoker. Review of Systems Constitutional: + fever Respiratory: No cough, No sputum Cardiovascular: No chest pain Abdomen: No pain, No nausea, No vomiting Musculoskeletal: No muscle pain Neurologic: + weakness A complete review of systems was performed. Pertinent positives are noted above. All other systems are negative. Physical Exam Date Time Temp Pulse Resp B/P (MAP) Pulse Ox O2 Delivery O2 Flow Rate FiO2 12/17/17 08:00 Room Air 12/17/17 06:50 37.2 75 18 109/45 (66) 96 Room Air 12/17/17 00:13 Room Air 12/16/17 23:13 37.6 85 16 135/45 (75) 97 Room Air 12/16/17 20:14 77 18 143/71 95 12/16/17 19:40 83 16 136/54 97 Room Air 12/16/17 19:20 37.3 80 20 135/83 98 Room Air 12/16/17 19:00 88 19 12/16/17 18:32 126/60 12/16/17 18:30 89 22 12/16/17 18:00 84 21 119/63 12/16/17 17:30 85 18 131/57 95 Room Air 12/16/17 17:18 85 12/16/17 17:00 86 14 133/54 96 Room Air 12/16/17 16:31 114/ 12/16/17 16:30 87 10 12/16/17 16:00 87 16 128/54 96 Room Air 12/16/17 15:35 87 20 12/16/17 15:30 121/52 12/16/17 15:05 86 20 12/16/17 15:00 89 20 128/74 12/16/17 14:30 88 16 112/47 12/16/17 14:00 91 19 125/58 12/16/17 13:30 88 16 116/56 96 12/16/17 13:14 94 12/16/17 13:05 89 18 122/75 97 Room Air 12/16/17 09:42 84 16 131/52 98 Room Air General Appearance: no apparent distress (chronically ill appearing) Head: normocephalic, atraumatic Eyes: PERRL, EOMI Neck: no adenopathy, no carotid bruits Respiratory/Chest: lungs clear, normal breath sounds, no respiratory distress Cardiovascular: regular rate, rhythm Abdomen/GI: normal bowel sounds, non tender, soft Back: no CVA tenderness Extremities/Musculoskelatal: no calf tenderness, no pedal edema, + pertinent finding (AVF + bruit) Neurologic/Psych: alert, + pertinent finding (legally blind. ) Laboratory Results Last 24 Hours Test 12/16/17 22:14 12/17/17 05:47 12/17/17 07:44 Bedside Glucose 164 mg/dl 178 mg/dl White Blood Count 6.66 K/uL Red Blood Count 2.87 M/uL Hemoglobin 9.6 g/dL Hematocrit 28.6 % Mean Corpuscular Volume 99.7 fL Mean Corpuscular Hemoglobin 33.4 pg Mean Corpuscular Hemoglobin Concent 33.6 g/dl RDW Standard Deviation 50.5 fL RDW Coefficient of Variation 14.0 % Platelet Count 157 K/uL Mean Platelet Volume 10.0 fL Sodium Level 137 mmol/L Potassium Level 4.0 mmol/L Chloride Level 101 mmol/L Carbon Dioxide Level 28 mmol/L Anion Gap 8.0 mmol/L Blood Urea Nitrogen 34 mg/dl Creatinine 7.86 mg/dl Est Creatinine Clear Calc Drug Dose 7.4 ml/min Estimated GFR () 6.6 Estimated GFR (Non- 5.7 BUN/Creatinine Ratio 4.4 Random Glucose 146 mg/dl Calcium Level 8.7 mg/dl Magnesium Level 2.5 mg/dl Impression (1) ESRD on hemodialysis (2) Generalized weakness (3) History of stroke (4) Ambulatory dysfunction (5) Diabetes mellitus (6) HTN (hypertension) (7) Hyperlipidemia Recommendations END STAGE RENAL DISEASE: -- Volume status and electrolyte balance are acceptable at this time. No acute in dication for HD today -- Will schedule heparin free HD for tomorrow am. Orders entered into EMR and HD RN notified. -- Protect R upper arm AVF -- Recommend diabetic HD diet ANEMIA: -- Will provide CONCETTA w/ HD ID: -- Patient has a low grade fever. Will test for Influenza
[2017-12-17 12:33] LABS: INFLUENZA B ANTIGEN Neg for Influ B (NEG)
[2017-12-17] MEDS ORDERED: OSELTAMIVIR PHOSPHATE SUSP 30 MG/5 ML UDP PO ONE (13:00)
--- NOTE | 2017-12-17 15:23 | Hospitalist Progress Note ---
Hospitalist Progress Note Date of Service Dec 17, 2017. (Inez De La Cruz PA-C) Subjective Pt evaluation today including: conversation w/ patient, physical exam, chart review, lab review, review of inpatient medication list Pain: None PO Intake: Tolerating PO diet Voiding: no voiding problems The patient reports feeling well. He states his legs feel weak, which is what brought him in. He otherwise denies complaints. The patient denies fevers, chills, sweats, chest pain, palpitations, claudication, cough, wheezing, shortness of breath, nausea, vomiting, abdominal pain, dysuria, hematuria, urinary retention, paralysis, weakness, numbness and tingling. Additional Comments: See HPI for pertinent positives and negatives. All other systems reviewed and negative. (Inez De La Cruz PA-C) Objective Vital Signs Date Time Temp Pulse Resp B/P (MAP) Pulse Ox O2 Delivery O2 Flow Rate FiO2 12/17/17 08:00 Room Air 12/17/17 06:50 37.2 75 18 109/45 (66) 96 Room Air 12/17/17 00:13 Room Air 12/16/17 23:13 37.6 85 16 135/45 (75) 97 Room Air 12/16/17 20:14 77 18 143/71 95 12/16/17 19:40 83 16 136/54 97 Room Air 12/16/17 19:20 37.3 80 20 135/83 98 Room Air 12/16/17 19:00 88 19 12/16/17 18:32 126/60 12/16/17 18:30 89 22 12/16/17 18:00 84 21 119/63 12/16/17 17:30 85 18 131/57 95 Room Air 12/16/17 17:18 85 12/16/17 17:00 86 14 133/54 96 Room Air 12/16/17 16:31 114/ 12/16/17 16:30 87 10 12/16/17 16:00 87 16 128/54 96 Room Air 12/16/17 15:35 87 20 12/16/17 15:30 121/52 (Inez De La Cruz PA-C) Physical Exam Notes: General appearance: Well-developed, well-nourished, no apparent distress Head: Normocephalic, atraumatic Eyes: Normal inspection, PERRL, EOMI ENT: Normal ENT inspection, hearing grossly normal, pharynx normal Neck: Supple, no JVD, trachea midline Respiratory/Chest: Lungs clear to auscultation, normal breath sounds, no respiratory distress Cardiovascular: Regular rate & rhythm, no gallop, no murmur Abdomen/GI: Normal bowel sounds, non-tender, soft Extremities/Musculoskeletal: Normal inspection, no calf tenderness, no pedal edema Neurological/Psych: +Motor strength in lower extremities appears about equal and is adequate given age. Alert, normal mood/affect, oriented x 3 Skin: Normal color, warm/dry, no rash (Inez De La Cruz ., PA-C) Laboratory Results Last 24 Hours Test 12/16/17 22:14 12/17/17 05:47 12/17/17 07:44 12/17/17 11:18 Bedside Glucose 164 mg/dl 178 mg/dl 221 mg/dl White Blood Count 6.66 K/uL Red Blood Count 2.87 M/uL Hemoglobin 9.6 g/dL Hematocrit 28.6 % Mean Corpuscular Volume 99.7 fL Mean Corpuscular Hemoglobin 33.4 pg Mean Corpuscular Hemoglobin Concent 33.6 g/dl RDW Standard Deviation 50.5 fL RDW Coefficient of Variation 14.0 % Platelet Count 157 K/uL Mean Platelet Volume 10.0 fL Sodium Level 137 mmol/L Potassium Level 4.0 mmol/L Chloride Level 101 mmol/L Carbon Dioxide Level 28 mmol/L Anion Gap 8.0 mmol/L Blood Urea Nitrogen 34 mg/dl Creatinine 7.86 mg/dl Est Creatinine Clear Calc Drug Dose 7.4 ml/min Estimated GFR () 6.6 Estimated GFR (Non- 5.7 BUN/Creatinine Ratio 4.4 Random Glucose 146 mg/dl Calcium Level 8.7 mg/dl Magnesium Level 2.5 mg/dl Test 12/17/17 11:40 Influenza Type A Antigen POS for Influ A Influenza Type B Antigen Neg for Influ B (Inez De La Cruz ., PA-C) Assessment and Plan 82 y/o male with a 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 Ambulatory Dysfunction, residual R sided weakness from Previous CVA--ongoing, stable - Admit to med/surg - Attempted to place to [facility] from ED, awaiting approval - MRI no acute disease or infarcts - ESR, CRP, TSH unremarkable - PT/OT recommend acute rehab - [facility] will not take pt until dialyzed, will resume HD tomorrow Rapid flu positive for influenza A -Droplet precautions -Tamiflu 30 mg PO x 1, then 30 mg PO after dialysis x 5 days -Could be contributing to weakness ESRD on HD--stable - HD on , Fri - Missed Friday session due to ED visit - Nephrology following, appreciate recs: Volume stats and electrolyte balance acceptable, no indication for acute HD today. Plan for HD as scheduled on 12/18. Low grade fever, chec k for influenza. H/O CVA, HTN--stable, no acute/new infarct on MRI - Continue ASA 325 mg daily, Plavix 75 mg daily, atorvastatin 10 mg daily, and Coreg 6.25 mg PO hs DM II--last A1c 2013 - Continue Januvia 25 mg daily -Insulin sliding scale -Check BSGs q ac and qhs -Recheck HgbA1c tomorrow am DVT Prophylaxis -SCDs Code Status -Level I, FULL RESUSCITATION STATUS Dispo - Referral to [facility], will not take pt until after dialysis Continued [facility] stay due to: home environment unsafe for pt (Inez De La Cruz ., PA-C) i personally examiend pt and verified all fofana points w Huber De La Cruz PAC feeling weak flu was (+) vitals noted nad breathing unlabored no pallor or icterus flu, weakness -tamiflu -[facility] (Piero Reynolds D.O.)
[2017-12-17 15:45] VITALS: BP 112/63; PULSE 78; TEMP 37.3; O2SAT 99
[2017-12-17 16:00] VITALS: O2SAT 99
[2017-12-17 21:48] VITALS: BP 134/67; PULSE 81
[2017-12-17] MEDS: CARVEDILOL 6.25 MG TAB PO SCH (21:50)
[2017-12-18] VITALS (24 sets, daily range): BP systolic 95–145; BP diastolic 48–66; PULSE 51–74; TEMP 36.8–37.4; O2SAT 96–99
[2017-12-18] MEDS ORDERED: EPOETIN ALFA INJ 7,000 UNITS in SYRINGE 0 ML IV. SCH (06:00)
[2017-12-18] MEDS ORDERED: EPOETIN ALFA 10,000 UNITS/ML VIAL IV. ONE (06:00)
[2017-12-18 06:59] LABS: HEMATOCRIT 27.4 % (42-52); HEMOGLOBIN 9.4 g/dL (14.0-18.0); MEAN CELL VOLUME 98.9 fL (80-100); MEAN CORPUSCULAR HEMOGLOBIN 33.9 pg (25-34); MEAN CORPUSCULAR HGB CONC 34.3 g/dl (32-36); MEAN PLATELET VOLUME 9.7 fL (7.4-10.4); PLATELET COUNT 140 K/uL (130-400); RED CELL DISTRIBUTION WIDTH CV 13.8 % (11.5-14.5); RED CELL DISTRIBUTION WIDTH SD 49.5 fL (36.4-46.3); WHITE BLOOD COUNT 5.74 K/uL (4.8-10.8)
[2017-12-18 07:42] LABS: HEMOGLOBIN A1C 7.4 % (4.5-5.6)
[2017-12-18 07:45] LABS: CALCIUM 8.4 mg/dl (8.5-10.1); CREATININE 8.32 mg/dl (0.60-1.40); POTASSIUM 3.8 mmol/L (3.5-5.1)
[2017-12-18] MEDS: ASPIRIN 325 MG ECTAB PO SCH (08:39)
[2017-12-18] MEDS: CLOPIDOGREL BISULFATE 75 MG TAB PO SCH (08:39)
[2017-12-18] MEDS: CALCIUM ACETATE 667MG GELCAP PO SCH ×3 (08:39→17:22)
[2017-12-18] MEDS: SITAGLIPTIN 25 MG TAB PO SCH (08:39)
[2017-12-18] MEDS: ATORVASTATIN 10 MG TAB PO SCH (08:39)
[2017-12-18] MEDS: CEROVITE ADV FORMULA TAB PO SCH (08:39)
[2017-12-18] MEDS: INSULIN ASPART 100 UNITS/ML 3 ML PEN SC SCH ×4 (08:40→21:25)
--- NOTE | 2017-12-18 08:45 | Clinical Documentation Query ---
MARYELLEN Wesley : Please Document Present on Admission Status for - Influenza A Documentation includes the following on hospital day #2: Rapid flu positive for influenza A -Droplet precautions -Tamiflu 30 mg PO x 1, then 30 mg PO after dialysis x 5 days -Could be contributing to weakness As appropriate, consider explicit documentation of your clinical opinion as suggested below so as to avoid certified procedural coder uncertainty at time of discharge. Thank you. ( x ) Influenza A, POA ( ) Influenza A, not POA Thank You, Maldonado Conn, RN [phone]
--- NOTE | 2017-12-18 09:54 | Nephrology Progress Note ---
Nephrology Progress Note Date of Service Dec 18, 2017. Chief Complaint ESRD on IHD Subjective Mr. Montesinos was seen & examined in his hospital room this morning. He denies fever, dyspnea or myalgias. His only concern is weakness. Mr. Montesinos is awaiting HD later this morning. Review of Systems Constitutional: No fever ENT: No sore throat Cardiovascular: No chest pain Respiratory: No dyspnea at rest Abdomen: No pain, No nausea, No vomiting Extremities: No leg edema A complete review of systems was performed. Pertinent positives are noted above. All other systems are negative. Vital Signs Last 8 Hrs Date Time Temp Pulse Resp B/P (MAP) Pulse Ox O2 Delivery O2 Flow Rate FiO2 12/18/17 07:23 37.3 70 18 131/66 (87) 97 Room Air Last Recorded Weight Weight (Kilograms): 77.900 Physical Exam General Appearance: no apparent distress Head: normocephalic, atraumatic Eyes: PERRL, EOMI Neck: no adenopathy Respiratory/Chest: lungs clear Cardiovascular: regular rate, rhythm Abdomen/GI: normal bowel sounds, non tender, soft Extremities/Musculoskelatal: no calf tenderness, no pedal edema, + pertinent finding (AVF + bruit) Neurologic/Psych: alert, + pertinent finding (legally blind) Family History Diabetes mellitus Hypertension Negative for CKD/ESRD Social History Smoking Status: Former smoker Smokeless Tobacco Use: No Alcohol Use: none Drug Use: none Marital Status: Housing Status: lives with significant other Occupation: retired . Retired. Formerly worked at "[employer]". Lives in [place]. Former smoker. Laboratory Results Past 24 Hours 12/18/17 06:31 12/18/17 06:31 Test 12/17/17 11:18 12/17/17 11:40 12/17/17 16:35 12/17/17 20:57 Bedside Glucose 221 mg/dl (70-99) 167 mg/dl (70-99) 225 mg/dl (70-99) Influenza Type A Antigen POS for Influ A (NEG) Influenza Type B Antigen Neg for Influ B (NEG) Test 12/18/17 06:31 12/18/17 07:45 Red Blood Count 2.77 M/uL (4.7-6.1) Mean Corpuscular Volume 98.9 fL (80-100) Mean Corpuscular Hemoglobin 33.9 pg (25-34) Mean Corpuscular Hemoglobin Concent 34.3 g/dl (32-36) RDW Standard Deviation 49.5 fL (36.4-46.3) RDW Coefficient of Variation 13.8 % (11.5-14.5) Mean Platelet Volume 9.7 fL (7.4-10.4) Anion Gap 11.0 mmol/L (3-11) Est Creatinine Clear Calc Drug Dose 6.9 ml/min Estimated GFR () 6.2 Estimated GFR (Non- 5.3 BUN/Creatinine Ratio 5.3 (10-20) Estimated Average Glucose 166 mg/dl Hemoglobin A1c 7.4 % (4.5-5.6) Calcium Level 8.4 mg/dl (8.5-10.1) Magnesium Level 2.2 mg/dl (1.8-2.4) Bedside Glucose 148 mg/dl (70-99) Allergies Coded Allergies: Adhesives (Verified Allergy, Mild, ITCHY SKIN WITH TAPE, 12/16/17) Penicillins (Verified Allergy, Mild, rash, 12/16/17) Medications Current Inpatient Medications Medications (Trade) Dose Ordered Sig/Don Route Start Time Stop Time Status Last Admin Dose Admin Acetaminophen (Tylenol Tab) 650 mg Q4H PRN PO 12/16/17 18:00 01/15/18 17:59 Al Hydrox/Mg Hydrox/Simethicone (Maalox Max Susp) 15 ml Q4H PRN PO 12/16/17 18:00 01/15/18 17:59 Magnesium Hydroxide (Milk Of Magnesia Susp) 30 ml Q6H PRN PO 12/16/17 18:00 01/15/18 17:59 Polyethylene (Miralax Powder Packet) 17 gm DAILY PRN PO 12/16/17 18:00 01/15/18 17:59 Ondansetron HCl (Zofran Inj) 4 mg Q6H PRN IV 12/16/17 18:00 01/15/18 17:59 Insulin Aspart (novoLOG ASPART) SLIDING SCALE If C... ACHS SC 12/16/17 21:00 01/15/18 20:59 12/17/17 21:47 2 UNITS Glucose (Glucose 40% Gel) 15-30 GRAMS 15 GRAMS... UD PRN PO 12/16/17 18:00 01/15/18 17:59 Glucose (Glucose Chew Tab) 4-8 Tablets 4 Tabl... UD PRN PO 12/16/17 18:00 01/15/18 17:59 Dextrose (Dextrose 50% 50ML Syringe) 25-50ML OF 50% DW IV FOR... UD PRN IV 12/16/17 18:00 01/15/18 17:59 Glucagon (Glucagon Inj) 1 mg UD PRN SQ 12/16/17 18:00 01/15/18 17:59 Aspirin (Ecotrin Tab) 325 mg QAM PO 12/17/17 08:00 01/16/18 08:59 12/18/17 08:39 325 MG Atorvastatin Calcium (Lipitor Tab) 10 mg QAM PO 12/17/17 08:00 01/16/18 08:59 12/18/17 08:39 10 MG Calcium Acetate (Phoslo Cap) 667 mg TIDM PO 12/17/17 08:00 01/16/18 07:59 12/18/17 08:39 667 MG Carvedilol (Coreg Tab) 6.25 mg HS PO 12/16/17 21:00 01/15/18 20:59 12/17/17 21:50 6.25 MG Clopidogrel Bisulfate (plAVix TAB) 75 mg QAM PO 12/17/17 08:00 01/16/18 08:59 12/18/17 08:39 75 MG Multivitamins/ Minerals (Multivitamin W/ Minerals Tab) 1 tab DAILY PO 12/17/17 08:00 01/16/18 08:59 12/18/17 08:39 1 TAB Sitagliptin Phosphate (Januvia Tab) 25 mg QAM PO 12/17/17 08:00 01/16/18 08:59 12/18/17 08:39 25 MG Miscellaneous (Iv Fluids Completed) 1 ea PRN PRN N/A 12/16/17 21:45 12/16/18 21:44 Heparin Sodium (Porcine) (No Heparin In Dialysis) 1 ea TODAY@0600 N/A 12/18/17 06:00 12/18/17 23:59 Epoetin Balta 7000 units/Syringe 0.35 ml @ 1 mls/min TODAY@0600 IV. 12/18/17 06:00 12/18/17 23:59 Oseltamivir Phosphate (Tamiflu Susp) 30 mg Q2D@2100 PO 12/18/17 21:00 12/22/17 20:59 Impression (1) Influenza A (2) ESRD on hemodialysis (3) Generalized weakness (4) History of stroke (5) Ambulatory dysfunction (6) Diabetes mellitus (7) HTN (hypertension) (8) Hyperlipidemia Recommendations END STAGE RENAL DISEASE: -- Will provide HD today. Orders entered into EMR and HD RN notified. -- Protect R upper arm AVF -- Recommend diabetic HD diet ANEMIA: -- Will provide CONCETTA w/ HD ID: -- Influenza A positive. Now on droplet precautions and Tamiflu
--- NOTE | 2017-12-18 14:01 | Hospitalist Progress Note ---
Hospitalist Progress Note Date of Service Dec 18, 2017. (Inez De La Cruz PA-C) Subjective Pt evaluation today including: conversation w/ patient, physical exam, chart review, lab review, review of inpatient medication list Pain: None PO Intake: Tolerating PO diet Voiding: voiding difficulty (doesn't make urine, on HD) Patient receiving dialysis in room during exam. He reports feeling cold, but otherwise denies complaints. The patient denies fevers, chills, sweats, chest pain, palpitations, claudication, cough, wheezing, shortness of breath, nausea, vomiting, abdominal pain, dysuria, hematuria, urinary retention, paralysis, weakness, numbness and tingling. (Inez De La Cruz PA-C) Objective Vital Signs Date Time Temp Pulse Resp B/P (MAP) Pulse Ox O2 Delivery O2 Flow Rate FiO2 12/18/17 10:30 51 107/62 12/18/17 10:15 64 109/56 12/18/17 10:00 67 116/61 12/18/17 09:45 37.3 72 118/54 (75) 12/18/17 09:45 71 111/55 12/18/17 08:45 97 Room Air 12/18/17 07:23 37.3 70 18 131/66 (87) 97 Room Air 12/18/17 00:26 37.2 74 18 145/66 (92) 96 Room Air 12/18/17 00:00 Room Air 12/17/17 21:48 81 134/67 (89) 12/17/17 16:00 99 Room Air 12/17/17 15:45 37.3 78 18 112/63 (79) 99 Room Air (Inez De La Cruz PA-C) Physical Exam Notes: General appearance: Well-developed, well-nourished, no apparent distress Head: Normocephalic, atraumatic Eyes: Normal inspection, PERRL, EOMI ENT: Normal ENT inspection, hearing grossly normal, pharynx normal Neck: Supple, no JVD, trachea midline Respiratory/Chest: Lungs clear to auscultation, normal breath sounds, no respiratory distress Cardiovascular: Regular rate & rhythm, no gallop, no murmur Abdomen/GI: Normal bowel sounds, non-tender, soft Extremities/Musculoskeletal: Normal inspection, no calf tenderness, no pedal edema Neurological/Psych: Alert, normal mood/affect, oriented x 3 Skin: Normal color, warm/dry, no rash (Inez De La Cruz ., PA-C) Laboratory Results Last 24 Hours Test 12/17/17 16:35 12/17/17 20:57 12/18/17 06:31 12/18/17 07:45 Bedside Glucose 167 mg/dl 225 mg/dl 148 mg/dl White Blood Count 5.74 K/uL Red Blood Count 2.77 M/uL Hemoglobin 9.4 g/dL Hematocrit 27.4 % Mean Corpuscular Volume 98.9 fL Mean Corpuscular Hemoglobin 33.9 pg Mean Corpuscular Hemoglobin Concent 34.3 g/dl RDW Standard Deviation 49.5 fL RDW Coefficient of Variation 13.8 % Platelet Count 140 K/uL Mean Platelet Volume 9.7 fL Sodium Level 138 mmol/L Potassium Level 3.8 mmol/L Chloride Level 101 mmol/L Carbon Dioxide Level 26 mmol/L Anion Gap 11.0 mmol/L Blood Urea Nitrogen 44 mg/dl Creatinine 8.32 mg/dl Est Creatinine Clear Calc Drug Dose 6.9 ml/min Estimated GFR () 6.2 Estimated GFR (Non- 5.3 BUN/Creatinine Ratio 5.3 Random Glucose 127 mg/dl Estimated Average Glucose 166 mg/dl Hemoglobin A1c 7.4 % Calcium Level 8.4 mg/dl Magnesium Level 2.2 mg/dl Test 12/18/17 11:40 Bedside Glucose 149 mg/dl (Inez De La Cruz ., PA-C) Assessment and Plan 82 y/o male with a 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 Ambulatory Dysfunction, residual R sided weakness from Previous CVA--ongoing, stable - Admit to med/surg - Attempted to place to [facility] from ED, awaiting approval - MRI no acute disease or infarcts - ESR, CRP, TSH unremarkable - PT/OT recommend acute rehab - [facility] will not take pt until off Tamiflu, asymptomatic and fever free for 48 hours w/o antipyretics Rapid flu positive for influenza A, present on admission -Droplet precautions -Continue Tamiflu 30 mg PO after dialysis. Day 2 of 5. -Could be contributing to weakness ESRD on HD--stable - HD on , , Sat - Missed Friday session due to ED visit - Nephrology following, appreciate recs: Dialysis for today. H/O CVA, HTN--stable, no acute/new infarct on MRI - Continue ASA 325 mg daily, Plavix 75 mg daily, atorvastatin 10 mg daily, and Coreg 6.25 mg PO hs DM II--stable - Continue Januvia 25 mg daily -Insulin sliding scale -Check BSGs q ac and qhs -HgbA1c 7.4 on 12/18 DVT Prophylaxis -SCDs Code Status -Level I, FULL RESUSCITATION STATUS Dispo - Referral to [facility], will explore other options with case management (Inez De La Cruz ., PA-C) i personally examined pt and verified all fofana points w A Jono PAC feeling better vitals noted nad breathing unlabored no pallor or icterus influenza, weakness -tamiflu -PT/OT for ongoing strengthening and assessment of best / safest dispo - initial plan for rehab, although might show enough progress as to be able to go home if he conitnues to improve (Piero Reynolds D.O.)
[2017-12-18] MEDS ORDERED: OSELTAMIVIR PHOSPHATE SUSP 30 MG/5 ML UDP PO SCH (21:00)
[2017-12-18] MEDS: CARVEDILOL 6.25 MG TAB PO SCH (21:26)
[2017-12-19 07:05] VITALS: BP 130/51; PULSE 60; TEMP 36.8; O2SAT 99
[2017-12-19 07:10] LABS: HEMATOCRIT 30.9 % (42-52); HEMOGLOBIN 10.1 g/dL (14.0-18.0); MEAN CELL VOLUME 99.7 fL (80-100); MEAN CORPUSCULAR HEMOGLOBIN 32.6 pg (25-34); MEAN CORPUSCULAR HGB CONC 32.7 g/dl (32-36); PLATELET COUNT 145 K/uL (130-400); RED CELL DISTRIBUTION WIDTH CV 13.9 % (11.5-14.5); RED CELL DISTRIBUTION WIDTH SD 50.2 fL (36.4-46.3); WHITE BLOOD COUNT 5.02 K/uL (4.8-10.8)
[2017-12-19 07:38] LABS: CALCIUM 8.3 mg/dl (8.5-10.1); CREATININE 5.21 mg/dl (0.60-1.40)
[2017-12-19] MEDS: INSULIN ASPART 100 UNITS/ML 3 ML PEN SC SCH ×2 (09:00→13:02)
[2017-12-19] MEDS: CEROVITE ADV FORMULA TAB PO SCH (09:39)
[2017-12-19] MEDS: ATORVASTATIN 10 MG TAB PO SCH (09:39)
[2017-12-19] MEDS: CLOPIDOGREL BISULFATE 75 MG TAB PO SCH (09:39)
[2017-12-19] MEDS: CALCIUM ACETATE 667MG GELCAP PO SCH ×2 (09:39→13:03)
[2017-12-19] MEDS: ASPIRIN 325 MG ECTAB PO SCH (09:40)
[2017-12-19] MEDS: SITAGLIPTIN 25 MG TAB PO SCH (09:40)
--- NOTE | 2017-12-19 10:22 | Nephrology Progress Note ---
Nephrology Progress Note Date of Service Dec 19, 2017. Chief Complaint ESRD on IHD Subjective Mr. Montesinos was seen & examined in his hospital room this morning. He was dialyzed yesterday for 4 hours w/ 2 L UF. There were no complications. Mr. Montesinos denies fever, dyspnea, productive cough. He reports that he is gradually improving. Review of Systems Constitutional: No fever Cardiovascular: No chest pain Respiratory: No dyspnea at rest Abdomen: No pain, No nausea, No vomiting Extremities: No leg edema A complete review of systems was performed. Pertinent positives are noted above. All other systems are negative. Vital Signs Last 8 Hrs Date Time Temp Pulse Resp B/P (MAP) Pulse Ox O2 Delivery O2 Flow Rate FiO2 12/19/17 07:05 36.8 60 18 130/51 (77) 99 Room Air Last Recorded Weight Weight (Kilograms): 76.300 Physical Exam General Appearance: no apparent distress Head: normocephalic, atraumatic Eyes: PERRL, EOMI Neck: no adenopathy Respiratory/Chest: lungs clear Cardiovascular: regular rate, rhythm Abdomen/GI: normal bowel sounds, non tender, soft Extremities/Musculoskelatal: no pedal edema, + pertinent finding (AVf + bruit) Neurologic/Psych: alert, oriented x 3 Family History Diabetes mellitus Hypertension Negative for CKD/ESRD Social History Smoking Status: Former smoker Smokeless Tobacco Use: No Alcohol Use: none Drug Use: none Marital Status: Housing Status: lives with significant other Occupation: retired . Retired. Formerly worked at "[employer] Lives in [place]. Former smoker. Laboratory Results Past 24 Hours 12/19/17 06:58 12/19/17 06:58 Test 12/18/17 11:40 12/18/17 14:35 12/18/17 17:05 12/18/17 19:59 Bedside Glucose 149 mg/dl (70-99) 129 mg/dl (70-99) 200 mg/dl (70-99) 185 mg/dl (70-99) Test 12/19/17 06:58 12/19/17 07:39 Red Blood Count 3.10 M/uL (4.7-6.1) Mean Corpuscular Volume 99.7 fL (80-100) Mean Corpuscular Hemoglobin 32.6 pg (25-34) Mean Corpuscular Hemoglobin Concent 32.7 g/dl (32-36) RDW Standard Deviation 50.2 fL (36.4-46.3) RDW Coefficient of Variation 13.9 % (11.5-14.5) Mean Platelet Volume 10.0 fL (7.4-10.4) Anion Gap 7.0 mmol/L (3-11) Est Creatinine Clear Calc Drug Dose 11.1 ml/min Estimated GFR () 10.9 Estimated GFR (Non- 9.4 BUN/Creatinine Ratio 4.8 (10-20) Calcium Level 8.3 mg/dl (8.5-10.1) Magnesium Level 2.3 mg/dl (1.8-2.4) Bedside Glucose 118 mg/dl (70-99) Allergies Coded Allergies: Adhesives (Verified Allergy, Mild, ITCHY SKIN WITH TAPE, 12/16/17) Penicillins (Verified Allergy, Mild, rash, 12/16/17) Medications Current Inpatient Medications Medications (Trade) Dose Ordered Sig/Don Route Start Time Stop Time Status Last Admin Dose Admin Acetaminophen (Tylenol Tab) 650 mg Q4H PRN PO 12/16/17 18:00 01/15/18 17:59 Al Hydrox/Mg Hydrox/Simethicone (Maalox Max Susp) 15 ml Q4H PRN PO 12/16/17 18:00 01/15/18 17:59 Magnesium Hydroxide (Milk Of Magnesia Susp) 30 ml Q6H PRN PO 12/16/17 18:00 01/15/18 17:59 Polyethylene (Miralax Powder Packet) 17 gm DAILY PRN PO 12/16/17 18:00 01/15/18 17:59 Ondansetron HCl (Zofran Inj) 4 mg Q6H PRN IV 12/16/17 18:00 01/15/18 17:59 Insulin Aspart (novoLOG ASPART) SLIDING SCALE If C... ACHS SC 12/16/17 21:00 01/15/18 20:59 12/18/17 21:25 1 UNITS Glucose (Glucose 40% Gel) 15-30 GRAMS 15 GRAMS... UD PRN PO 12/16/17 18:00 01/15/18 17:59 Glucose (Glucose Chew Tab) 4-8 Tablets 4 Tabl... UD PRN PO 12/16/17 18:00 01/15/18 17:59 Dextrose (Dextrose 50% 50ML Syringe) 25-50ML OF 50% DW IV FOR... UD PRN IV 12/16/17 18:00 01/15/18 17:59 Glucagon (Glucagon Inj) 1 mg UD PRN SQ 12/16/17 18:00 01/15/18 17:59 Aspirin (Ecotrin Tab) 325 mg QAM PO 12/17/17 08:00 01/16/18 08:59 12/19/17 09:40 325 MG Atorvastatin Calcium (Lipitor Tab) 10 mg QAM PO 12/17/17 08:00 01/16/18 08:59 12/19/17 09:39 10 MG Calcium Acetate (Phoslo Cap) 667 mg TIDM PO 12/17/17 08:00 01/16/18 07:59 12/19/17 09:39 667 MG Carvedilol (Coreg Tab) 6.25 mg HS PO 12/16/17 21:00 01/15/18 20:59 12/18/17 21:26 6.25 MG Clopidogrel Bisulfate (plAVix TAB) 75 mg QAM PO 12/17/17 08:00 01/16/18 08:59 12/19/17 09:39 75 MG Multivitamins/ Minerals (Multivitamin W/ Minerals Tab) 1 tab DAILY PO 12/17/17 08:00 01/16/18 08:59 12/19/17 09:39 1 TAB Sitagliptin Phosphate (Januvia Tab) 25 mg QAM PO 12/17/17 08:00 01/16/18 08:59 12/19/17 09:40 25 MG Miscellaneous (Iv Fluids Completed) 1 ea PRN PRN N/A 12/16/17 21:45 12/16/18 21:44 Oseltamivir Phosphate (Tamiflu Susp) 30 mg Q2D@2100 PO 12/18/17 21:00 12/22/17 20:59 12/18/17 21:21 30 MG Impression (1) Influenza A (2) ESRD on hemodialysis (3) Generalized weakness (4) History of stroke (5) Ambulatory dysfunction (6) Diabetes mellitus (7) HTN (hypertension) (8) Hyperlipidemia Recommendations END STAGE RENAL DISEASE: -- Will provide HD tomorrow. Orders entered into EMR and HD RN notified. -- Protect R upper arm AVF -- Recommend diabetic HD diet ANEMIA: -- Will provide CONCETTA w/ HD ID: -- Influenza A positive. Now on droplet precautions and Tamiflu
[2017-12-19] MEDS ORDERED: TMFUDL30 PO (12:19)
--- NOTE | 2017-12-19 12:23 | Discharge Instructions ---
Discharge Instructions Date of Service Dec 19, 2017. Admission Reason for Admission: Ambulatory Dysfunction Discharge Discharge Diagnosis / Problem: Ambulatory dysfunction, Influenza A Discharge Goals Goal(s): Improve function, Improve disease control Activity Recommendations Activity Level: Assistance Required Therapies: Physical Therapy, Occupational Therapy . Additional Information Patient informed of condition: Yes Advance Directives: No DNR: No Level of Care: Acute Rehab Communicable Disease: Yes (influenza A - afebrile > 48 hours - last dose Tamiflu tomorrow) Prognosis: Stable Hoover Catheter: No Instructions / Follow-Up Instructions / Follow-Up Patient is dialysis patient [facility] - due for dialysis tomorrow Current Hospital Diet Patient's current hospital diet: Renal Diet, Diabetes Type 2 Diet Discharge Diet Recommended Diet: Diabetes Type 2 Diet, Renal Diet Procedures Procedures Performed: Brain MRI Head CT CXR Pending Studies Studies pending at discharge: no Physician Orders On Transfer POLST Discussion: without POLST completion Laboratory Results Hemoglobin A1c Test 12/18/17 06:31 Range/Units Estimated Average Glucose 166 mg/dl Hemoglobin A1c 7.4 H 4.5-5.6 % Medical Emergencies . Who to Call and When: Medical Emergencies: If at any time you feel your situation is an emergency, please call 911 immediately. . Non-Emergent Contact Non-Emergency issues call your: Primary Care Provider Call Non-Emergent contact if: you have a fever, you have any medication questions . . "Provider Documentation" section prepared by Beth Noland. . Core Measure Problem Core Measures: None
--- NOTE | 2017-12-19 12:34 | Discharge Summary ---
Discharge Summary Date of Service Dec 19, 2017. Discharge Summary Admission Date: Dec 17, 2017 at 13:45 Discharge Date: Dec 19, 2017 Discharge Disposition: Home Principal Diagnosis: Gait dysfunction, Influenza A Problems/Secondary Diagnoses: Hx CVA with Right sided weakness, ESRD on HD--stable, HTN, DM II--stable Immunizations: Have You Had Influenza Vaccine: Yes Influenza Vaccine Date: Aug 16, 2013 History of Tetanus Vaccine?: Unknown History of Pneumococcal: Yes History of Hepatitis B Vaccine: Unknown Procedures: BRAIN WITHOUT CONTRAST HISTORY: 82 years-old Male Ambulatory Dysfunction acute confusion with difficulty walking. History of remote stroke. COMPARISON: MRI the brain 01/31/2017, CT head 12/16/2017 TECHNIQUE: Multiplanar multisequence MRI the brain was obtained without contrast FINDINGS: There is no restricted diffusion to suggest acute infarction. There is a least moderate generalized brain atrophy with ex vacuo ventriculomegaly. Moderate to extensive foci of increased T2/FLAIR signal seen within the subcortical, deep and periventricular white matter of the phalanges bilaterally compatible with chronic microvascular ischemic changes. Several sequences are at least moderately motion degraded. There is no acute intracranial hemorrhage, midline shift, abnormal extra-axial collections or hydrocephalus. Encephalomalacia and gliosis is again seen associated with remote right occipital lobe infarction. Multiple remote lacunar infarctions are again noted as well. For example, there is a remote lacunar infarction of the left caudate nucleus and left parson radiata. Major flow voids at the level of the skull base appear patent. Mastoid air cells are generally clear. Moderate ethmoid sinus disease. Prior left-sided cataract repair. Calvarium, scalp and soft tissues are unremarkable. IMPRESSION: 1. No acute intracranial abnormality. Negative for acute infarction. 2. Atrophy with chronic microvascular ischemic changes. 3. Encephalomalacia and gliosis associated with remote right occipital lobe infarction. Remote lacunar infarctions are again seen within the left caudate head and left parson radiata. The above report was generated using voice recognition software. It may contain grammatical, syntax or spelling errors. Electronically signed by: Christ Flannery M.D. 12/16/2017 11:22 PM CHEST ONE VIEW PORTABLE CLINICAL HISTORY: WEAKNESS dyspnea COMPARISON STUDY: 01/30/2017 FINDINGS: The bones soft tissues and hemidiaphragms are normal. The cardiomediastinal silhouette is normal. The lungs are clear. The pulmonary vasculature is normal. IMPRESSION: Negative chest. Interval removal of the central catheter Electronically signed by: Salvador Evans M.D. 12/16/2017 9:41 AM [~ rep ct add3]] CT SCAN OF THE BRAIN WITHOUT IV CONTRAST CLINICAL HISTORY: Generalized weakness. COMPARISON STUDY: CT of the brain dated 01/30/2017. TECHNIQUE: Unenhanced axial CT scan of the brain is performed from the vertex to the skull base. A dose lowering technique was utilized adhering to the principles of ALARA. CT DOSE: 1363.67 mGy.cm FINDINGS: Brain parenchyma: There are age-related involutional changes noting moderate to advanced confluent subcortical and periventricular microangiopathic change. Right occipital encephalomalacia is consistent with a remote infarct. A chronic lacunar infarct is seen in the left caudate head. There is no hemorrhage, mass effect, or evidence of acute territorial ischemia by CT criteria. Gibbons-white matter is preserved. No extra-axial fluid collection is seen. Ventricles, sulci, cisterns: Prominent secondary to involutional change. Intracranial vasculature: There is atherosclerotic calcification of the cavernous carotid and vertebral arteries. Calvarium: Unremarkable. Sinuses and mastoids: The visualized paranasal sinuses are clear. The mastoid air cells are well pneumatized. Orbits: The bony orbits are grossly intact. There is a left ocular lens implant. IMPRESSION: Senescent changes and remote infarcts as above. There is no hemorrhage, mass effect, or evidence of acute territorial ischemia by CT criteria. Electronically signed by: Rommel Posada M.D. 12/16/2017 9:31 AM Consultations: Dr. Hodges from nephrology Medication Reconciliation New Medications: Oseltamivir Phosphate (Tamiflu) 6 Mg/Ml [place] 30 MG PO Q2D@2100 for 2 Days, #1 DOSE Continued Medications: Aspirin (Aspirin Ec) 325 Mg Tab 325 MG PO QAM Atorvastatin (Lipitor) 10 Mg Tab 10 MG PO QAM, TAB B-Complex W/ C & Folic Acid (Marilee-Vince) 1 Tab Tab 1 TAB PO QPM Calcium Acetate (Phoslo 667 Mg) 667 Mg Cap 1 CAP PO TID for 30 Days, #90 CAP 5 Refills Carvedilol (Coreg) 6.25 Mg Tab 6.25 MG PO HS Cholecalciferol (Vitamin D3) 1,000 Inter.unit Tab 1000 UNITS PO DAILY Clopidogrel (Plavix) 75 Mg Tab 75 MG PO QAM, TAB Multiple Vitamins W/ Minerals (Ocuvite) 1 Tab Tab 1 TAB PO DAILY Sitagliptin (Januvia) 25 Mg Tab 25 MG PO QAM, TAB Discharge Exam ROS Constitutional: no chills, aches, sweats or fever Respiratory: no sob,cough, sputum, or wheezing Cardiac: no chest pain, palpitations, edema, orthopnea or lightheadedness GI: no abdominal pain, nausea, vomiting, diarrhea or constipation : no dysuria or hesitancy Extremities: no joint pain or weakness Skin: no rash All other systems reviewed and negative General: no distress Eyes: normal inspection, PERLL Respiratory: chest non tender, clear to auscultation, normal breath sounds, no respiratory distress, no accessory muscle use Cardiac: regular rate and rhythm, no rub or gallop, no murmur, no edema, no jvd GI/: active bowel sounds, no abd pain or tenderness, soft, non distended Extremities: normal range of motion, normal strength, non tender Neuro/Psych: alert and oriented x 3, normal mood and affect Skin: normal color, dry Hospital Course Mr. Montesinos is an 82 y/o male with PMHx of CVA (2012) with R Residual Deficits, ESRD on HD, HTN, and T2DM who presents to the ED for ambulatory dysfunction starting day of admission. Patient has long standing ambulatory dysfunction mostly since his CVA. He utilizes a cane for ambulation. The morning of admission he noticed b/l lower extremity weakness but did note that his R side is always a little worse given his previous CVA. He felt weak and was not able to bear weight on his legs. Ambulatory Dysfunction, residual R sided weakness from Previous CVA--ongoing, stable - CT head negative for acute process - MRI showed no acute disease or infarcts - ESR, CRP, TSH unremarkable - PT/OT recommend acute rehab - to [facility] Rapid flu positive for influenza A, present on admission -Droplet precautions -Continue Tamiflu 30 mg PO after dialysis. Today is day 3/5 and patient is renally dosed q2d - last dose is tomorrow -Could have precipitated weakness ESRD on HD--stable - HD on , Fri - received dialysis in patient yesterday - Missed Friday session due to ED visit - Nephrology consulted H/O CVA, HTN--stable, no acute/new infarct on MRI - Continue ASA 325 mg daily, Plavix 75 mg daily, atorvastatin 10 mg daily, and Coreg 6.25 mg PO hs DM II--stable - Continue Januvia 25 mg daily -Insulin sliding scale while inpatient -HgbA1c 7.4 on 12/18 EQUIPMENT OPERATOR/LABORER/SUPERVISOR Physician Supervision Note: I interviewed and examined the patient. Discussed with Beth Noland EQUIPMENT OPERATOR/LABORER/SUPERVISOR and agree with findings and plan as documented in the note. Any exceptions or clarifications are listed here: None patient has done well we are awaiting placement to rehabilitation vital signs are stable temperature 36 and pulse 60 respirations 18 BP 130/51 Examined the patient is heart is regular his lungs are clear his abdomen is normal active bowel sounds and soft Patient's has convalesced from his influenza a, he is deconditioned and due to his blindness has challenges taking care of himself at home is except at the [facility] will be transferred there today Documented By: Rojelio Lorenzo Total Time Spent: Greater than 30 minutes This includes examination of the patient, discharge planning, medication reconciliation, and communication with other providers. Discharge Instructions Please refer to the electronic Patient Visit Report (Discharge Instructions) for additional information. Follow-Up Dr. Hodges from nephrology for HD Additional Copies To Cuong Hodges M.D.; [facility]
[2017-12-19 13:31] VITALS: BP 130/51; PULSE 60; TEMP 36.8; O2SAT 99
[2017-12-20] MEDS ORDERED: EPOETIN ALFA 10,000 UNITS/ML VIAL IV. ONE (06:00)
[2017-12-20] MEDS ORDERED: EPOETIN ALFA INJ 7,000 UNITS in SYRINGE 0 ML IV. SCH (06:00)
[2017-12-20] MEDS ORDERED: PARICALCITOL 5 MCG/ML VIAL (ZEMPLAR) IV. SCH (06:00)
[2017-12-20] MEDS ORDERED: HEPARIN SOD (PORCINE) 1000 UNIT/ML 10 ML VIAL IV SCH ×2 (06:00)
== END 2017-12-19 17:19 | DRG 193 ==
LOC: EDBD 08:35 → C.EDB 08:36 → C.MS4W 18:07 → EDBEDREQ 18:16 → ENRESERV 18:40 → OBSVTOIN 12-17 13:45
PROVIDERS: ADMIT Hospitalist; ATTEND Internal Medicine
DX: J10.1 Influenza due to other identified influenza virus with other respiratory manifestations (principal); N18.6 End stage renal disease; E11.9 Type 2 diabetes mellitus without complications; I10 Essential (primary) hypertension; R53.1 Weakness; H54.8 Legal blindness, as defined in USA; E78.5 Hyperlipidemia, unspecified; D64.9 Anemia, unspecified; Z99.2 Dependence on renal dialysis; Z79.82 Long term (current) use of aspirin; Z88.0 Allergy status to penicillin; Z87.891 Personal history of nicotine dependence; Z86.73 Personal history of transient ischemic attack (TIA), and cerebral infarction without residual deficits; Z83.3 Family history of diabetes mellitus; Z82.49 Family history of ischemic heart disease and other diseases of the circulatory system

== ENCOUNTER 2018-01-04 10:36 | Emergency (ER) | payer OTHER, BC ==
[~2018-01-04] VITALS: Ht 177.8 cm; Wt 77.1 kg
[~2018-01-04 10:36] MED LIST changes: -AMLO-110 PO; -DOCU100C31 PO; +MULT-188 PO; +TMFUDL30 PO; +VTMD1000 PO
[2018-01-04 10:47] VITALS: TEMP 36.5; Ht 177.8 cm; Wt 77.1 kg
[2018-01-04 10:53] VITALS: O2SAT 97
[2018-01-04 11:06] LABS: BASO % 0.2 %; BASO ABS # 0.02 K/uL (0-0.2); EOS % 14.8 %; EOS ABS # 1.57 K/uL (0-0.5); HEMATOCRIT 30.9 % (42-52); HEMOGLOBIN 10.4 g/dL (14.0-18.0); IG# 0.08 K/uL (0.00-0.02); LYMPH % 13.9 %; LYMPH ABS # 1.47 K/uL (1.2-3.4); MEAN CELL VOLUME 98.4 fL (80-100); MEAN CORPUSCULAR HEMOGLOBIN 33.1 pg (25-34); MEAN CORPUSCULAR HGB CONC 33.7 g/dl (32-36); MEAN PLATELET VOLUME 10.3 fL (7.4-10.4); MONO % 10.5 %; MONO ABS # 1.11 K/uL (0.11-0.59); NEUT % 59.8 %; NEUT ABS # 6.34 K/uL (1.4-6.5); PLATELET COUNT 157 K/uL (130-400); RED CELL DISTRIBUTION WIDTH CV 14.3 % (11.5-14.5); RED CELL DISTRIBUTION WIDTH SD 50.4 fL (36.4-46.3); WHITE BLOOD COUNT 10.59 K/uL (4.8-10.8)
[2018-01-04 11:16] LABS: PTT PATIENT 22.4 SECONDS (21.0-31.0)
[2018-01-04 11:25] LABS: ISTAT CREATININE 5.1 mg/dl (0.6-1.3); ISTAT IONIZED CALCIUM 1.13 mmol/l (1.12-1.32); ISTAT POTASSIUM 4.3 mEq/L (3.3-5.0)
[2018-01-04 11:38] LABS: ALBUMIN 3.5 gm/dl (3.4-5.0); CREATININE 4.88 mg/dl (0.60-1.40); POTASSIUM 4.3 mmol/L (3.5-5.1); TOTAL PROTEIN 6.9 gm/dl (6.4-8.2)
--- NOTE | 2018-01-04 11:49 | DIAGNOSTIC IMAGING REPORT ---
CHEST ONE VIEW PORTABLE CLINICAL HISTORY: Atypical chest pain COMPARISON STUDY: December 16, 2017 FINDINGS: The cardiac and mediastinal contours are normal. There is no evidence of focal pulmonary consolidation. There is no evidence of failure. No pleural effusions are visualized.[ IMPRESSION: No active disease in the chest. Electronically signed by: Napoleon Wesley M.D. 01/04/2018 11:48 AM Dictated Date/Time: 01/04/2018 11:48 AM
--- NOTE | 2018-01-04 11:56 | DIAGNOSTIC IMAGING REPORT ---
CT HEAD WITHOUT CONTRAST (CT) CLINICAL HISTORY: Weakness. Possible stroke COMPARISON STUDY: December 16, 2017 TECHNIQUE: Axial CT of the brain is performed from the vertex to the skull base. IV contrast was not administered for this examination. A dose lowering technique was utilized adhering to the principles of ALARA. CT DOSE: 749.40 mGy.cm FINDINGS: No intra or extra-axial mass lesions are visualized. There is no CT evidence of acute cortical infarction. There is no evidence of midline shift. There is no acute hemorrhage. No calvarial fractures are visualized. There are moderate white matter hypodensities likely on a small vessel basis. There is an old right occipital lobe infarct. There is an old deep white matter infarct in the left periventricular white matter. There is stable ventricular dilatation which is felt to be secondary to volume loss There is no evidence of acute sinusitis IMPRESSION: No acute intracranial findings Electronically signed by: Napoleon Wesley M.D. 01/04/2018 11:55 AM Dictated Date/Time: 01/04/2018 11:54 AM
[2018-01-04 12:15] LABS: INFLUENZA B ANTIGEN Neg for Influ B (NEG)
[2018-01-04] MEDS ORDERED: ONDANSETRON HOME PACK 4MG OD TAB PO ONE (17:15)
--- NOTE | 2018-01-04 17:39 | EMERGENCY ROOM VISIT NOTE ---
History Report prepared by Mayte: Gianfranco Nye Under the Supervision of: Dr. Maldonado Isabel M.D. First contact with patient: 11:21 Chief Complaint: ILLNESS Stated Complaint: ILLNESS History of Present Illness The patient is a 82 year old male who presents to the Emergency Room with complaints of flu like symptoms that began 1 day ago. He reports nausea, vomiting, and diarrhea. He denies chest pain, fevers, SOB, abdominal pain, blood in stool, and blood in vomit. The patient has a regular schedule of dialysis on Friday, , and Friday. The patient has a history of strokes and diabetes. Of note, his slurred speech is unchanged from baseline. The patient nt has no new numbness or weakness. He feels fine at present. His is also being seen as she has back pain. He has baseline visual impairment which is unchanged he tells me. Source of History: patient Onset: 1 day ago Position: other (global) Timing: constant Associated Symptoms: + nausea, + vomiting, + diarrhea, No fevers, No chest pain, No SOB, No abdominal pain, No hematochezia Note: Patient denies blood in vomit. Review of Systems See HPI for pertinent positives & negatives. A total of 10 systems reviewed and were otherwise negative. Past Medical & Surgical Medical Problems: (1) CVA (cerebral vascular accident) (2) Diabetes mellitus (3) ESRD on hemodialysis (4) HTN (hypertension) (5) Hyperlipidemia (6) Influenza A (7) T wave inversion in EKG Old medical records were reviewed. Nurse's notes were reviewed and I agree with. Family History Diabetes mellitus Hypertension Social History Smoking Status: Never Smoker Alcohol Use: none Drug Use: none Marital Status: Housing Status: lives with significant other Occupation Status: retired Current/Historical Medications Scheduled Aspirin (Aspirin Ec), 325 MG PO QAM Atorvastatin (Lipitor), 10 MG PO QAM B-Complex W/ C & Folic Acid (Marilee-Vince), 1 TAB PO QPM Calcium Acetate (Phoslo 667 Mg), 1 CAP PO UD Carvedilol (Coreg), 6.25 MG PO HS Cholecalciferol (Vitamin D3), 1,000 UNITS PO DAILY Clopidogrel (Plavix), 75 MG PO QAM Multiple Vitamins W/ Minerals (Ocuvite), 1 TAB PO DAILY Sitagliptin (Januvia), 25 MG PO QAM Allergies Coded Allergies: Adhesives (Verified Allergy, Mild, ITCHY SKIN WITH TAPE, 01/04/18) Penicillins (Verified Allergy, Mild, rash, 01/04/18) Physical Exam Vital Signs Date Time Temp Pulse Resp B/P (MAP) Pulse Ox O2 Delivery O2 Flow Rate FiO2 01/04/18 16:00 84 125/64 01/04/18 15:01 129/62 01/04/18 15:00 75 129/62 98 Room Air 01/04/18 15:00 71 13 98 01/04/18 14:20 70 01/04/18 14:00 70 117/59 97 Room Air 01/04/18 13:00 65 131/57 99 Room Air 01/04/18 12:08 71 13 123/53 98 Room Air 01/04/18 11:34 75 01/04/18 10:53 97 Room Air 01/04/18 10:47 36.5 46 16 146/62 97 Room Air Physical Exam General: Non-ill appearing elderly male in no acute distress. HEENT: Normal cephalic atraumatic. Pupils are equal round and reactive to light. Extraocular movements are intact. Oropharynx is pink with moist mucous membranes. No swelling of the mouth lips or tongue. Neck: Supple with a midline trachea. No meningeal signs or stiffness, no JVD or bruits. No Stridor. Chest: Clear to auscultation bilaterally. No wheezes or rhonchi. No increased work of breathing. Heart: regular rate and rhythm. Abdomen: Soft nontender, nondistended without rebound guarding or rigidity. Extremities: No cyanosis clubbing or edema. No calf tenderness or assymetry. Dialysis catheter in right arm. Spine/Back. Non tender to palpation. No CVA tenderness Skin: Good turgor without rashes. Neurologic exam: Cranial nerves two through 12 are intact. Motor and sensation are intact and symmetrical throughout. Medical Decision & Procedures ER Provider Diagnostic Interpretation: Radiology results as stated below per my review and radiologist interpretation: CHEST ONE VIEW PORTABLE CLINICAL HISTORY: Atypical chest pain COMPARISON STUDY: December 16, 2017 FINDINGS: The cardiac and mediastinal contours are normal. There is no evidence of focal pulmonary consolidation. There is no evidence of failure. No pleural effusions are visualized.[ IMPRESSION: No active disease in the chest. Electronically signed by: Napoleon Wesley M.D. 01/04/2018 11:48 AM Dictated Date/Time: 01/04/2018 11:[address] HEAD WITHOUT CONTRAST (CT) CLINICAL HISTORY: Weakness. Possible stroke COMPARISON STUDY: December 16, 2017 TECHNIQUE: Axial CT of the brain is performed from the vertex to the skull base. IV contrast was not administered for this examination. A dose lowering technique was utilized adhering to the principles of ALARA. CT DOSE: 749.40 mGy.cm FINDINGS: No intra or extra-axial mass lesions are visualized. There is no CT evidence of acute cortical infarction. There is no evidence of midline shift. There is no acute hemorrhage. No calvarial fractures are visualized. There are moderate white matter hypodensities likely on a small vessel basis. There is an old right occipital lobe infarct. There is an old deep white matter infarct in the left periventricular white matter. There is stable ventricular dilatation which is felt to be secondary to volume loss There is no evidence of acute sinusitis IMPRESSION: No acute intracranial findings Electronically signed by: Napoleon Wesley M.D. 01/04/2018 11:55 AM Dictated Date/Time: 01/04/2018 11:54 AM Laboratory Results 01/04/18 10:55 Red Blood Count 3.14, Mean Corpuscular Volume 98.4, Mean Corpuscular Hemoglobin 33.1, Mean Corpuscular Hemoglobin Concent 33.7, Mean Platelet Volume 10.3, Neutrophils (%) (Auto) 59.8, Lymphocytes (%) (Auto) 13.9, Monocytes (%) (Auto) 10.5, Eosinophils (%) (Auto) 14.8, Basophils (%) (Auto) 0.2, Neutrophils # (Auto ) 6.34, Lymphocytes # (Auto) 1.47, Monocytes # (Auto) 1.11, Eosinophils # (Auto ) 1.57, Basophils # (Auto) 0.02 01/04/18 10:55 Test 01/04/18 10:55 01/04/18 11:14 01/04/18 11:37 White Blood Count 10.59 K/uL (4.8-10.8) Red Blood Count 3.14 M/uL (4.7-6.1) Hemoglobin 10.4 g/dL (14.0-18.0) Hematocrit 30.9 % (42-52) Mean Corpuscular Volume 98.4 fL (80-100) Mean Corpuscular Hemoglobin 33.1 pg (25-34) Mean Corpuscular Hemoglobin Concent 33.7 g/dl (32-36) Platelet Count 157 K/uL (130-400) Mean Platelet Volume 10.3 fL (7.4-10.4) Neutrophils (%) (Auto) 59.8 % Lymphocytes (%) (Auto) 13.9 % Monocytes (%) (Auto) 10.5 % Eosinophils (%) (Auto) 14.8 % Basophils (%) (Auto) 0.2 % Neutrophils # (Auto) 6.34 K/uL (1.4-6.5) Lymphocytes # (Auto) 1.47 K/uL (1.2-3.4) Monocytes # (Auto) 1.11 K/uL (0.11-0.59) Eosinophils # (Auto) 1.57 K/uL (0-0.5) Basophils # (Auto) 0.02 K/uL (0-0.2) RDW Standard Deviation 50.4 fL (36.4-46.3) RDW Coefficient of Variation 14.3 % (11.5-14.5) Immature Granulocyte % (Auto) 0.8 % Immature Granulocyte # (Auto) 0.08 K/uL (0.00-0.02) Prothrombin Time 10.4 SECONDS (9.0-12.0) Prothromb Time International Ratio 1.0 (0.9-1.1) Activated Partial Thromboplast Time 22.4 SECONDS (21.0-31.0) Partial Thromboplastin Ratio 0.9 Est Creatinine Clear Calc Drug Dose 11.8 ml/min Estimated GFR () 11.8 Estimated GFR (Non- 10.2 BUN/Creatinine Ratio 4.3 (10-20) Calcium Level 9.0 mg/dl (8.5-10.1) Total Bilirubin 0.7 mg/dl (0.2-1) Aspartate Amino Transf (AST/SGOT) 19 U/L (15-37) Alanine Aminotransferase (ALT/SGPT) 25 U/L (12-78) Alkaline Phosphatase 97 U/L (45-117) Troponin I < 0.015 ng/ml (0-0.045) Total Protein 6.9 gm/dl (6.4-8.2) Albumin 3.5 gm/dl (3.4-5.0) Globulin 3.4 gm/dl (2.5-4.0) Albumin/Globulin Ratio 1.0 (0.9-2) Bedside Hemoglobin 10.5 g/dl (14.0-18.0) Bedside Hematocrit 31 % (42-52) Bedside Sodium 139 mEq/L (135-144) Bedside Potassium 4.3 mEq/L (3.3-5.0) Bedside Chloride 96 mEq/L (101-112) Bedside Total CO2 32 mEq/l (24-31) Anion Gap 17.0 mmol/L (16-25) Bedside Blood Urea Nitrogen 22 mg/dl (7-18) Bedside Creatinine 5.1 mg/dl (0.6-1.3) Bedside Glucose (other) 251 mg/dl (70-99) Bedside Ionized Calcium (Stalin) 1.13 mmol/l (1.12-1.32) Influenza Type A Antigen Neg for Influ A (NEG) Influenza Type B Antigen Neg for Influ B (NEG) Laboratory studies as stated above per my review. Medications Administered Medications (Trade) Dose Ordered Sig/Don Route Start Time Stop Time Status Last Admin Dose Admin Ondansetron HCl (ZOFRAN ODT 4MG Home Pack) 1 homepack UD ONCE PO 01/04/18 17:15 01/04/18 17:16 DC 01/04/18 17:29 1 HOMEPACK ECG Per My Interpretation Indication: other (flu like symptoms) Rate (beats per minute): 74 Rhythm: normal sinus Findings: RBBB, no acute ischemic change, other (left axis deviation) Change: no significant change (12/16/2017) ED Course 1121: Past medical records reviewed. The patient was evaluated in room C10, and a complete history and physical examination were performed. 1328: I checked on the patient and he is sleeping. 1457: I checked on the patient and he is nauseated. He would also like to eat something. 1630: I checked on the patient and he is doing well. He is eating and he feels good. 1710: I checked on the patient and he ate an entire meal. His family would like to take him home. 1715: Upon reevaluation, the patient is doing well. I discussed the results and treatment plan with the patient and family. They verbalized agreement of the treatment plan. The patient was discharged home. Medical Decision Differential diagnoses include CVA, viral ill, cardiac disease, infection, dialysis complication, electrolyte and metabolic abnormality. This patient comes in as described above. He was placed in room CD10. He apparently had some nausea last night he looks and feels well at present. He does have a complicated medical history with dialysis. He has had no chest pain. EKG does not suggest acute cardiac event. He has no acute electrolyte or metabolic abnormalities with exception of baseline chronic renal failure. Chest x-ray was unremarkable. Influenza was negative. He has remained stable and feels well. He feels good. He was eating food without any difficulty and wants to go home. I will discharge him home . he can use Zofran if needed for nausea return if any new problems or concerns. Our case management team did talk to the patient and his and the family at length. They have made arrangements for them to be seen and likely admitted at a assisted living facility tomorrow. Medication Reconcilliation Current Medication List: was personally reviewed by me Blood Pressure Screening Patient's blood pressure: Elevated blood pressure Blood pressure disposition: Elevated BP felt to be situational Impression Primary Impression: Nausea Scribe Attestation The scribe's documentation has been prepared under my direction and personally reviewed by me in its entirety. I confirm that the note above accurately reflects all work, treatment, procedures, and medical decision making performed by me. Departure Information Dispostion Home / Self-Care Referrals Johnson Balderas PA-C (PCP) Forms HOME CARE DOCUMENTATION FORM, IMPORTANT VISIT INFORMATION, WORK / SCHOOL INSTRUCTIONS Patient Instructions My [facility] Additional Instructions Rest. Mild diet. May use Zofran 4 mg every 6 hours as needed for nausea Return if: Worsening of symptoms, shortness of breath, not tolerating fluids, any new problems or concerns Follow-up with your doctor this week for recheck within the next 1-2 days
[2018-01-04 17:41] VITALS: BP 134/81; PULSE 88; O2SAT 100
== END 2018-01-04 17:44 | disposition home or self-care (01) ==
LOC: EDBD 10:36 → C.EDC 10:37
DX: R11.2 Nausea with vomiting, unspecified (principal); E11.22 Type 2 diabetes mellitus with diabetic chronic kidney disease; N18.6 End stage renal disease; I12.0 Hypertensive chronic kidney disease with stage 5 chronic kidney disease or end stage renal disease; I45.10 Unspecified right bundle-branch block; E78.5 Hyperlipidemia, unspecified; Z86.73 Personal history of transient ischemic attack (TIA), and cerebral infarction without residual deficits; Z99.2 Dependence on renal dialysis; Z79.82 Long term (current) use of aspirin; Z83.3 Family history of diabetes mellitus; Z82.49 Family history of ischemic heart disease and other diseases of the circulatory system; Z88.0 Allergy status to penicillin; Z91.048 Other nonmedicinal substance allergy status